=== PATIENT | female | born 1995 | race Caucasian/White ===

== ENCOUNTER 2024-09-28 10:53 | Emergency (ER) | payer OTHER, SELFPAY ==
--- OUTSIDE RECORDS SUMMARY | 2024-09-28 10:55 | XMS REPORT | Continuity of Care Document ---
Author Name Unknown Address [address] [facility] [address] [place] [address] [facility] thconnect Address [address] [facility] [address] [place] [address] Care Team Providers Care Landscape Horticulture Instructor Name Role Phone Physician, No Primary or Family Admitting Clinic margret Unavailable Payers Payer Name Policy Type Policy Number Effective Date Expirati on Date Source Allergies, Adverse Reactions, Alerts Allergy Name Allergy Type Status Severity Reaction(s) Onset Date Inactive Date Treating Clinician Comments Source folic acid DA Active [place] 2018-09 00:00: 00 [facility] adhesive tape DA Active [place] 2018-09 0 00:00: 00 [facility] folic acid DA Active [place] RASH 2018-09 0 00:00: 00 [facility] adhesive tape DA Active [place] RASH 2018-09 0 00:00: 00 [facility] folic acid DA Active [place] 04-28 00:00: 00 [facility] adhesive tape DA Active [place] 04-28 00:00: 00 [facility] No Known Allergie s DA Active U 03-02 00:00: 00 [facility] Encounters Start Date/Time End Date/Time Encounter Type Admission Type Attending Clinicians Care Facility Care Department Encounter ID Source 2020-07-26 23:00:00 Inpatient [facility] TERS [id number] [facility] Results Test Description Test Time Test Comments Results Result Co mments Source - CT ABD PELVIS [id number] 17:35:00FAX: Jose Elder MD [phone] [place]: St: REG Name: CHUNG EDUARDO [facility] : 1995 Age/S: [address] Unit: [id number] Loc: [place], [place]: [place] [address] Acct: [id number] Dis Date: Status: REG ER PHONE #: [phone] Exam Date: 06/20/2019 1717 FAX #: [phone] Reason: LEft flank pain EXAMS: CPT CODE: [id number] CT ABD PELVIS W/CONT 21206 HISTORY: LEft flank pain EXAM TYPE: CT abdomen and pelvis with IV contrast. Location code:C3 TECHNIQUE: Contrast - IV contrast was given, no oral contrast was given Portal venous phase - abdomen and pelvis No delayed phase images were obtained. Reconstructions - coronal and sagittal planes One or more of the following dose reduction techniques were used: Automated exposure control, adjustment of themA and/or kV according to patient size, and/or utilization of iterative reconstruction technique. COMPARISON: CT abdomen and pelvis 04/28/2019 FINDINGS: Statements: None. Thoracic: Included images ofthe lower chest demonstrate no abnormalities. Hepatobiliary: The liver is normal without focal lesion. Previously identified hypodensity seen in the posterior left lobe near the falciform ligament isno longer visualized, possibly due to transient fatty infiltration. The gallbladder is normal. No biliary dilation. Pancreas: Normal. Spleen: Normal. Adrenals: Normal. Genitourinary: There is symmetric enhancement of both kidneys. A 5 cm hypodensity is present in the right interpolar region and a 4mm hypodensity is present in the left interpolar region (image 30, series 2), both too small to characterize but statistically cysts. No hydronephrosis or renal calculi identified. No perinephric fat stranding. Evaluation of the bladder is limited, but no obvious bladder abnormality is present. Theuterus is unremarkable. Simple cystic PAGE 1 Signed Report (CONTINUED) FAX: Jose Elder MD [phone] [place]: St: REG ----- Name: CHUNG EDUARDO [facility] : 1995 Age/S: 23/F [address] [id number] Loc: [place], [place]: [place] [address] Acct: [id number] Dis Date: Status: REG ER PHONE #: [phone] Exam Date: 06/20/2019 1717 FAX #: [phone] Reason: LEft flank pain EXAMS: CPT CODE: [id number] CT ABD PELVIS W/CONT 13131 (Continued) structure seen in the right adnexa measuring 4.2 cm AP by 3.3 cm TR by 3.4 cm CC (image 72, series 2; image 42, series 601), with subtle appearance of rim enhancement; possibly a corpus luteum cyst or hemorrhagic cyst associated with the right ovary. Normal left ovary (image 71, series 2). No left adnexal mass. No significant pelvic free fluid. Gastrointestinal: No bowel obstruction or perienteric inflammation. The appendix is normal. Vascular: No evidence of aneurysm or dissection. Lymphatics: No enlarged lymph nodes by CT size criteria. Bones/Soft Tissues: The osseous structures are unremarkable. No acute osseous abnormality. No ventral hernias. Peritoneum/Other: No extraluminal air. No extraluminal fluid. IMPRESSION: 1. 4.2 cm right adnexal cystic structure with subtle rim enhancement, likely a benign-type corpus luteum cyst associated with the right ovary. No significant pelvic fluid collection or solid mass seen. Normal uterus and left ovary. 2. Normal appendix. 3. Normal kidneys bilaterally withoutevidence of hydronephrosis or renal calculi. No perinephric fat stranding. Electronically Signedby LOLA NEGRETE M.D. on 06/20/2019 at 1732 Reported and signed by: LOLA NEGRETE M.D. CC: Jose Elder MD Technologist: MAXIMILIAN LAWRENCE Trnscrd Dt/Tm: 06/20/2019 (8567) [email or web address] Orig Print D/T: S: 06/20/2019 (5278 PAGE 2 Signed ReportBASIC METABOLIC [id number] 16:09:00* Test Item Value Reference Range Interpretation Comme nts SODIUM (test code = NA) 138 mmol/l 134.0-147.0 N POTASSIUM (test code = K) 3.8 mmol/L 3.6-5.2 N CHLORIDE (test code = CL) 102 mmol/l 98.0-107.0 N CARBON DIOXIDE (test code = CO2) 26.9 mmol/l 21.0-33.0 N ANION GAP (test code = GAP) 12.9 0-20 N GLUCOSE (test code = GLU) 91 mg/dl 70.0-110.0 N BLOOD UREA NITROGEN (test co de = BUN) 8 mg/dl 7.0-18.0 N CREATININE (test code = CREAT) 0.72 mg/dL 0.60-1.30 N GFR NON BLACK (test code = GFRNONBLACK) 108 mL/min 110-120 L GFR BLACK (test code = GFRBLACK) 131 mL/min 133-145 L CALCIUM (test code = CA) 9.0 mg/dl 8.0-10.5 N HEPATIC FUNCTION PANEL [id number] 16:09:00* Test Item Value Reference Range Interpretation Comme nts TOTAL PROTEIN (test code = PROT) 7.9 GM/DL 6.0-8.1 N ALBUMIN (test code = ALB) 3.8 gm/dL 3.2-4.7 N BILIRUBIN TOTAL (test code = BILT) 0.5 mg/dl 0.0-1.0 N BILIRUBIN DIRECT (test code = BILD) 0.1 mg/dl 0.0-0.3 N SGOT/AST (test code = AST) 14 Units/L 15.0-37.0 L SGPT/ALT (test code = ALT) 17 Units/L 12.0-78.0 N ALKALINE PHOSPHATASE TOTAL ( test code = ALKP) 63 Units/L 50.0-136.0 N [id number] 16:09:00* Test Item Value Reference Range Interpretation Comme nts LIPASE (test code = LIP) 82 Units/L 65.0-230.0 N BASIC METABOLIC [id number] 16:02:00* Test Item Value Reference Range Interpretation Comme nts SODIUM (test code = NA) 138 mmol/l 134.0-147.0 N POTASSIUM (test code = K) 3.8 mmol/L 3.6-5.2 N CHLORIDE (test code = CL) 102 mmol/l 98.0-107.0 N CARBON DIOXIDE (test code = CO2) 26.9 mmol/l 21.0-33.0 N ANION GAP (test code = GAP) 12.9 0-20 N GLUCOSE (test code = GLU) mg/dl 70.0-110.0 BLOOD UREA NITROGEN (test co de = BUN) mg/dl 7.0-18.0 CREATININE (test code = CREAT) mg/dL 0.60-1.30 GFR NON BLACK (test code = GFRNONBLACK) mL/min 110-120 GFR BLACK (test code = GFRBLACK) mL/min 133-145 CALCIUM (test code = CA) mg/dl 8.0-10.5 HEPATIC FUNCTION PANEL [id number] 16:02:00* Test Item Value Reference Range Interpretation Comme nts TOTAL PROTEIN (test code = PROT) gm/dL 6.4-8.2 ALBUMIN (test code = ALB) gm/dl 3.2-4.7 BILIRUBIN TOTAL (test code = BILT) mg/dl 0.0-1.0 BILIRUBIN DIRECT (test code = BILD) mg/dl 0.0-0.3 SGOT/AST (test code = AST) Units/L 15.0-37.0 SGPT/ALT (test code = ALT) Units/L 12.0-78.0 ALKALINE PHOSPHATASE TOTAL ( test code = ALKP) Units/L 50.0-136.0 [id number] 16:02:00* Test Item Value Reference Range Interpretation Comme nts LIPASE (test code = LIP) Units/L 65.0-230.0 URINALYSIS [id number] 15:59:00* Test Item Value Reference Range Interpretation Comme nts UA COLOR (test code = COLU) LT YELLOW UA APPEARANCE (test code = APPU) HAZY UA GLUCOSE DIPSTICK (test code = DGLUU) NORMAL mg/dl NORMAL UA BILIRUBIN DIPSTICK (test code = BILU) NEGATIVE mg/dL NEGATIVE UA KETONE DIPSTICK (test code = KETU) NEGATIVE mg/dl NEGATIVE UA SPECIFIC GRAVITY (test code = SGU) 1.010 1.000-1.030 UA BLOOD DIPSTICK (test code = DAVID) 50 Domenico/micL Domenico/micL NEGATIVE A UA PH DIPSTICK (test code = JUANI) 6.5 5.0-9.0 UA PROTEIN DIPSTICK (test code = PROU) 30 mg/dl NEGATIVE A UA UROBILINIOGEN DIPSTICK (test code = URO) NORMAL mg/dl NORMAL UA NITRITE DIPSTICK (test code = CHRISTINA) NEGATIVE NEGATIVE UA LEUKOCYTE ESTERASE DIPSTICK (test code = LEUU) 100 Jason/micL Jason/micL NEGATIVE A UA WBC (test code = WBCU) 10-20 WBC/HPF NONE A UA RBC (test code = RBCU) 5-10 RBC/HPF 0-3 A UA EPITHELIAL CELLS (test code = EPIU) 2-5 EPI/HPF 0-3 A UA BACTERIA (test code = BACU) FEW NONE UA RENAL CELLS (test code = KRYSTYNA) FEW UA MUCUS (test code = MUCU) 2+ UR HCG [id number] 15:59:00* Test Item Value Reference Range Interpretation Comme nts UR HCG QUAL (test code = HCGQLU) NEGATIVE NEGATIVE CBC W/AUTO [id number] 15:56:00* Test Item Value Reference Range Interpretation Comme nts WHITE BLOOD CELL (test code = WBC) 11.3 K/mm3 4.5-11.0 H RED BLOOD CELL (test code = RBC) 4.33 M/mm3 3.80-5.20 N HEMOGLOBIN (test code = HGB) 12.8 gm/dL 12.0-16.0 N HEMATOCRIT (test code = HCT) 39.5 % 36.0-48.0 N MEAN CELL VOLUME (test code = MCV) 91.2 UM3 82.0-99.0 N MEAN CELL HGB (test code = MCH) 29.6 UUG 25.5-32.5 N MEAN CELL HGB CONCETRATION (test code = MCHC) 32.4 gm/dL 29.0-35.5 N RED CELL DISTRIBUTION WIDTH (test code = RDW) 13.1 % 11.5-15.0 N RED CELL DISTRIBUTION WIDTH SD (test code = RDW-SD) 43.8 fL 34.8-50.2 N PLATELET COUNT (test code = PLT) 306 K/mm3 150-400 N MEAN PLATELET VOLUME (test c ode = MPV) 9.9 fl 7.4-10.4 N NEUTROPHIL % (test code = NT%) 68.5 % 49.0-76.0 N IMMATURE GRANULOCYTE % (test code = IG%) 0.3 % 0.0-0.4 N LYMPHOCYTE % (test code = LY%) 20.3 % 23.0-38.0 L MONOCYTE % (test code = MO%) 8.8 % 1.0-10.0 N EOSINOPHIL % (test code = EO%) 1.5 % 1.0-5.0 N BASOPHIL % (test code = BA%) 0.6 % 0.0-1.0 N NEUTROPHIL # (test code = NT#) 7.8 K/mm3 2.4-6.3 H IMMATURE GRANULOCYTE # (test code = IG#) 0.03 x10 3/uL 0.00-0.07 N LYMPHOCYTE # (test code = LY#) 2.3 K/mm3 1.2-4.0 N MONOCYTE # (test code = MO#) 1.0 K/mm3 0.0-0.6 H EOSINOPHIL # (test code = EO#) 0.2 K/MM3 0.0-0.7 N BASOPHIL # (test code = BA#) 0.1 K/mm3 0.0-0.2 N URINALYSIS [id number] 15:53:00* Test Item Value Reference Range Interpretation Comme nts UA COLOR (test code = COLU) UA APPEARANCE (test code = APPU) UA GLUCOSE DIPSTICK (test code = DGLUU) NORMAL mg/dl NORMAL UA BILIRUBIN DIPSTICK (test code = BILU) NEGATIVE mg/dL NEGATIVE UA KETONE DIPSTICK (test code = KETU) NEGATIVE mg/dl NEGATIVE UA SPECIFIC GRAVITY (test code = SGU) 1.010 1.000-1.030 UA BLOOD DIPSTICK (test code = DAVID) 50 Domenico/micL Domenico/micL NEGATIVE A UA PH DIPSTICK (test code = JUANI) 6.5 5.0-9.0 UA PROTEIN DIPSTICK (test code = PROU) 30 mg/dl NEGATIVE A UA UROBILINIOGEN DIPSTICK (test code = URO) NORMAL mg/dl NORMAL UA NITRITE DIPSTICK (test code = CHRISTINA) NEGATIVE NEGATIVE UA LEUKOCYTE ESTERASE DIPSTICK (test code = LEUU) 100 Jason/micL Jason/micL NEGATIVE A UA WBC (test code = WBCU) WBC/HPF NONE UA RBC (test code = RBCU) RBC/HPF 0-3 UA EPITHELIAL CELLS (test code = EPIU) EPI/HPF 0-3 UA BACTERIA (test code = BACU) NONE UR HCG [id number] 15:53:00* Test Item Value Reference Range Interpretation Comme nts UR HCG QUAL (test code = HCGQLU) NEGATIVE - US ABDOMEN [id number] 09:23:00FAX: Taj Gonzalez MD [place]: St: DEP Name: CHUNG EDUARDO [facility] : 1995 Age/S: 23/F [address] [facility] Unit #: [id number] Loc: [place], [place]: [place] [address] Acct: [id number] Dis Date: Status: DEP ER PHONE #: [phone] Exam Date: 04/28/2019 1120 FAX #: [phone] Reason: RUQ pain Report Has Been Amended EXAMS: CPT CODE: [id number] US ABDOMEN LTD 37967 Addendum - 04/29/2019 SIGNED 04/29/2019 ADDENDUM: [id number] US/USABDLTD Addendum: The 2nd sentence describing the pancreas should be: Thickness of the pancreas is normal. at 0923 Reported and signed by: Get Gottlieb M.D. Report ULTRASOUND: - US ABDOMEN LTD History: Right upper quadrant pain, abdominal pain Comparison: None. B-mode/Govea scale imaging with color Doppler perfusion imaging and spectral analysis was performed. The aorta has normal diameter maximum measurement 1.3 cm. Pancreas intact where seen. As the pancreas is normal. Detail partially obscured. IVC intact seen at the edge of the liver. Liver ech ogenicity pattern homogeneous with liver size 12.9 cm. The posterior margin of the left lobe of theliver shows a vague oval almost isogenic area at 4.5 x 1.6 x 3.6 cm likely representing the CT findings but this is not shown to be hyperperfused, a very subtle abnormality. There does not appear titus architectural distortion. No other focal mass lesions are seen. Antegrade portal vein flow seen on color Doppler. The gallbladder is normally distended. No stones or wall thickening evident. Common bile duct normal 2.8 mm. The right kidney appears to be intact measuring 10.2 cm in length. No shadowing stones or obstruction or cortical abnormality. No ascites found. PAGE 1 Signed Report (CONTINUED) FAX: Taj Gonzalez MD [place]: St: [facility] Name: CHUNG EDUARDO [facility] : 1995 Age/S: 23/F [address] Unit #: [id number] Loc: [place], [place]: [place] [address] Acct: [id number] Dis Date: Status: DEP ER PHONE #: [phone] Exam Date: 04/28/2019 1120 FAX #: [phone] Reason: RUQ pain Report Has Been Amended EXAMS: CPT CODE: [id number] US ABDOMEN LTD 03511 (Continued) Impression: Normal gallbladder appearance. No gallstones evident. Iso echogenic, very subtle non mass-like area in the posterior left lobe of the liver, suggesting benign findings. Location: U 19 at 1142 Reported and signed by: Get Gottlieb M.D. CC: Taj Gonzalez MD Technologist: KATIE MOYA [facility] Date/Time/By: 04/28/2019 (114) : By: [facility] PAGE 2 Signed Report FAX: Taj Gonzalez MD [place]: St: DEP -- Name: CHUNG EDUARDO [facility] : 1995 Age/S: 23/F [address] [facility] Unit #: [id number] Loc: [place], [place] Phys: [place] [address] Acct: [id number] Dis Date: Status: [facility] ER PHONE #: [phone] Exam Date: 04/28/2019 1120 FAX #: [phone] Reason: RUQ pain Report Has Been Amended EXAMS: CPT CODE: [id number] US ABDOMEN LTD [id number] (Continued) Orig PrintD/T: S: 04/28/2019 (8017) PAGE 3 Signed Report- US ABDOMEN [id number] 11:42:00FAX: Taj Gonzalez MD [place]: St: REG Name: CHUNG EDUARDO [facility] : 1995 Age/S: 23/F [address] Unit #: [id number] Loc: [place]: [place] [address] Acct: [id number] Dis Date: Status: REG ER PHONE #: [phone] Exam Date: 04/28/2019 1120 FAX #: [phone] Reason: RUQ pain EXAMS: CPT CODE: [id number] US ABDOMEN LTD [address]2611 ULTRASOUND: - US ABDOMEN LTD H istory: Right upper quadrant pain, abdominal pain Comparison: None. B-mode/Govea scale imaging with color Doppler perfusion imaging and spectral analysis was performed. The aorta has normal diameter maximum measurement 1.3 cm. Pancreas intact where seen. As the pancreas is normal. Detail partially obscured. IVC intact seen at the edge of the liver. Liver echogenicity pattern homogeneous with liver size 12.9 cm. The posterior margin of the left lobe of the liver shows a vague oval almost isogenic area at 4.5 x 1.6 x 3.6 cm likely representing the CT findings but this is not shown to be hyperperfused, a very subtle abnormality. There does not appear to be architectural distortion. No other focal mass lesions are seen. Antegrade portal vein flow seen on color Doppler. The gallbladder is normally distended. No stones or wall thickening evident. Common bile duct normal 2.8 mm. The right kidney appears to be intact measuring 10.2 cm in length. No shadowing stones or obstruction or cortical a bnormality. No ascites found. Impression: Normal gallbladder appearance. No gallstones evident. Isoechogenic, very subtle non mass-like area in the posterior left lobe of the liver, suggesting benign findings. Location: U 19 at 1142 Reported and signed by: Get Gottlieb M.D. CC: Taj Gonzalez MD Technologist: KATIE MOYA [facility] Date/Time/By: 04/28/2019 (2734) : By: Carlee PAGE 1 Signed Report FAX: Taj Gonzalez MD [place]: St: REG ------- Name: CHUNG EDUARDO [facility] : 1995 Age/S: [address] Unit #: [id number] Loc: [place], [place]: [place] [address] Acct: [id number] Dis Date: Status: REG ER PHONE #: [phone] Exam Date: 04/28/2019 1120 FAX #: [phone] Reason: RUQ pain EXAMS: CPT CODE: [id number] US ABDOMEN LTD 02656 (Continued) Orig Print D/T: S: 04/28/2019 (1144) PAGE 2 Signed Report- CT ABD PELVIS [id number] 10:06:00 FAX: Taj Gonzalez MD [place]: St: REG Name: CHUNG EDUARDO [facility] : 1995 Age/S: [address] Unit: [id number] Loc: [place], [place] Phys: [place] [address] Acct: [id number] Dis Date: Status: REG ER PHONE #: [phone] Exam Date: 04/28/2019 0958 FAX #: [phone] Reason: RUQ pain, RLQ PAIN EXAMS: CPT CODE: [id number] CT ABD PELVIS W/CONT 41714 HISTORY: Right lo wer quadrant pain, right upper quadrant pain. CT abdomen and pelvis, contrast enhanced. Reformattedsagittal and coronal images. COMPARISON: July 23, 2011 Automated exposure control, iterative reconstruction technique, and/or adjustment of mA and/or kV according to patient's size was utilized for optimum radiation dose reduction. Following the intravenous administration of 100 ml of Isovue 300 but no oral contrast, a study of the abdomen and pelvis was performed. The study includes some of the lung bases, which appear to be clear. No pericardial or pleural fluid can be found. The liver perfuses normally with no focal lesions. Margins are smooth. There is a vague subtly hypodense perfusio n abnormality in the left lobe of the liver and in the falciform ligament posteriorly in front of the maricruz hepatis. This is not appear to be masslike but may need correlation with liver enzyme abnormality possibly abdominal sonography. Gallbladder intact. The spleen normally perfused with normal size. Pancreas small hypodensity in the midportion of the right kidney laterally likely a tiny cyst but too small to accurately characterize. Intact. Adrenals and kidneys are normal. Normal aortic diameter and perfusion. No adenopathy seen. Bowel loop pattern intact. Stool content appropriate. Normalappendix is found. The study of the pelvis shows thickened bladder, nearly empty. Correlate for cystitis changes. Adnexal areas with soft tissue density likely a dominant cyst, left ovary up to 2.2 cm. Multiple tiny follicular cysts right ovary with normal size. There does not appear to be evidenceof free fluid. No inguinal hernia. No free air. Bony structures intact. No bony destructive or sclerotic process.. IMPRESSION: Normal appendix and bowel loop pattern. Vague hypodensity in the posterior left lobe near the falciform PAGE 1 Signed Report (CONTINUED) FAX: Taj Gonzalez MD [place]: St: REG -- Name: CHUNG EDUARDO [facility] : 1995 Age/S: 23/F [address] Unit: [id number] Loc: [place], [place]: [place] [address] Acct: [id number] Dis Date: Status: REG ER PHONE #: [phone] Exam Date: 04/28/2019 0958 FAX #: [phone] Reason: RUQ pain, RLQ PAIN EXAMS: CPT CODE: [id number] CT ABD PELVIS W/CONT 14496 (Continued) ligament may need further assessment with sonography or MRI. Correlate with liver enzyme abnormalities. No obvious gallbladder abnormalityacutely. Normal common bile duct Location: U19 at 1006 Reported and signed by: Get Gottlieb M.D. CC: Taj Gonzalez MD Technologist: CHUNG JOSE; FLAKITA GALAVIZ Trnscrd Dt/Tm: 04/28/2019 (1006) tGORDON Orig Print D/T: S: 04/28/2019 (1009 PAGE 2 Signed ReportURINALYSIS [id number] 09:40:00* Test Item Value Reference Range Interpretation Comme nts UA COLOR (test code = COLU) YELLOW UA APPEARANCE (test code = APPU) CLEAR UA GLUCOSE DIPSTICK (test code = DGLUU) NORMAL mg/dl NORMAL UA BILIRUBIN DIPSTICK (test code = BILU) NEGATIVE mg/dL NEGATIVE UA KETONE DIPSTICK (test code = KETU) 5 mg/dl mg/dl NEGATIVE A UA SPECIFIC GRAVITY (test code = SGU) 1.015 1.000-1.030 UA BLOOD DIPSTICK (test code = DAVID) 150 Domenico/micL Domenico/micL NEGATIVE A UA PH DIPSTICK (test code = JUANI) 6.5 5.0-9.0 UA PROTEIN DIPSTICK (test code = PROU) 15 mg/dl mg/dl NEGATIVE A UA UROBILINIOGEN DIPSTICK (test code = URO) NORMAL mg/dl NORMAL UA NITRITE DIPSTICK (test code = CHRISTINA) NEGATIVE NEGATIVE UA LEUKOCYTE ESTERASE DIPSTICK (test code = LEUU) NEGATIVE Jason/micL NEGATIVE UA WBC (test code = WBCU) 4-9 WBC/HPF NONE A UA RBC (test code = RBCU) 1-3 RBC/HPF 0-3 UA EPITHELIAL CELLS (test code = EPIU) 2-5 EPI/HPF 0-3 A UA BACTERIA (test code = BACU) FEW NONE UA AMORPHOUS SEDIMENT (test code = AMORU) MOD NONE Specimen comments: Clean CatchDRUGS OF ABUSE SCREEN [id number] 09:37:00* Test Item Value Reference Range Interpretation Comme nts URN COCAINE (test code = COCAURN) NEGATIVE NEGATIVE Cocaine cut-off concentration: 300 ng/mL URN CANNABINOIDS (test code = CANNABURN) NEGATIVE NEGATIVE Cannabinoids c ut-off concentration: 50 ng/mL URN AMPHETAMINE (test code = AMPHETURN) NEGATIVE NEGATIVE Amphetamine cu t-off concentration: 1000 ng/mL URN BARBITURATE (test code = BARBITURN) NEGATIVE NEGATIVE Barbiturate cu t-off concentration: 200 ng/mL URN BENZODIAZEPINE (test code = BENZOURN) NEGATIVE NEGATIVE Benzodiaz epine cut-off concentration: 200 ng/mL URN OPIATES (test code = OPIATURN) NEGATIVE NEGATIVE Opiates cut-off concentration: 200 ng/mL URN PHENCYCLIDINE (PCP) (test code = PHENCURN) NEGATIVE NEGATIVE Phencycli dine(PCP) cut-off concentration: 25 ng/ml URN METHADONE (test code = METHAURN) NEGATIVE NEGATIVE Methadone cut-o ff concentration: 300 ng/mL URINALYSIS [id number] 09:37:00* Test Item Value Reference Range Interpretation Comme nts UA COLOR (test code = COLU) UA APPEARANCE (test code = APPU) UA GLUCOSE DIPSTICK (test code = DGLUU) NORMAL mg/dl NORMAL UA BILIRUBIN DIPSTICK (test code = BILU) NEGATIVE mg/dL NEGATIVE UA KETONE DIPSTICK (test code = KETU) 5 mg/dl mg/dl NEGATIVE A UA SPECIFIC GRAVITY (test code = SGU) 1.015 1.000-1.030 UA BLOOD DIPSTICK (test code = DAVID) 150 Domenico/micL Domenico/micL NEGATIVE A UA PH DIPSTICK (test code = JUANI) 6.5 5.0-9.0 UA PROTEIN DIPSTICK (test code = PROU) 15 mg/dl mg/dl NEGATIVE A UA UROBILINIOGEN DIPSTICK (test code = URO) NORMAL mg/dl NORMAL UA NITRITE DIPSTICK (test code = CHRISTINA) NEGATIVE NEGATIVE UA LEUKOCYTE ESTERASE DIPSTICK (test code = LEUU) NEGATIVE Jason/micL NEGATIVE UA WBC (test code = WBCU) WBC/HPF NONE UA RBC (test code = RBCU) RBC/HPF 0-3 UA EPITHELIAL CELLS (test code = EPIU) EPI/HPF 0-3 UA BACTERIA (test code = BACU) NONE Specimen comments: Clean CatchBASIC METABOLIC [id number] 09:24:00* Test Item Value Reference Range Interpretation Comme nts SODIUM (test code = NA) 139 mmol/l 134.0-147.0 N POTASSIUM (test code = K) 3.2 mmol/L 3.6-5.2 L CHLORIDE (test code = CL) 104 mmol/l 98.0-107.0 N CARBON DIOXIDE (test code = CO2) 25.3 mmol/l 21.0-33.0 N ANION GAP (test code = GAP) 12.9 0-20 N GLUCOSE (test code = GLU) 84 mg/dl 70.0-110.0 N BLOOD UREA NITROGEN (test co de = BUN) 10 mg/dl 7.0-18.0 N CREATININE (test code = CREAT) 0.61 mg/dL 0.60-1.30 N GFR NON BLACK (test code = GFRNONBLACK) 131 mL/min 110-120 H GFR BLACK (test code = GFRBLACK) 159 mL/min 133-145 H CALCIUM (test code = CA) 8.6 mg/dl 8.0-10.5 N Specimen comments: Clean CatchHEPATIC FUNCTION PANEL [id number] 09:24:00* Test Item Value Reference Range Interpretation Comme nts TOTAL PROTEIN (test code = PROT) 7.3 gm/dL 6.4-8.2 N ALBUMIN (test code = ALB) 3.6 gm/dl 3.2-4.7 N BILIRUBIN TOTAL (test code = BILT) 1.3 mg/dl 0.0-1.0 H BILIRUBIN DIRECT (test code = BILD) 0.2 mg/dl 0.0-0.3 N SGOT/AST (test code = AST) 13 Units/L 15.0-37.0 L SGPT/ALT (test code = ALT) 18 Units/L 12.0-78.0 N ALKALINE PHOSPHATASE TOTAL ( test code = ALKP) 60 Units/L 50.0-136.0 N Specimen comments: Clean [id number] 09:24:00* Test Item Value Reference Range Interpretation Comme nts LIPASE (test code = LIP) 67 Units/L 65.0-230.0 N Specimen comments: Clean CatchHCG SERUM [id number] 09:24:00* Test Item Value Reference Range Interpretation Comme nts HCG SERUM QUAL (test code = HCGQL) NEGATIVE NEGATIVE Specimen comments: Clean CatchBASIC METABOLIC [id number] 09:21:00* Test Item Value Reference Range Interpretation Comme nts SODIUM (test code = NA) 139 mmol/l 134.0-147.0 N POTASSIUM (test code = K) 3.2 mmol/L 3.6-5.2 L CHLORIDE (test code = CL) 104 mmol/l 98.0-107.0 N CARBON DIOXIDE (test code = CO2) 25.3 mmol/l 21.0-33.0 N ANION GAP (test code = GAP) 12.9 0-20 N GLUCOSE (test code = GLU) mg/dl 70.0-110.0 BLOOD UREA NITROGEN (test co de = BUN) mg/dl 7.0-18.0 CREATININE (test code = CREAT) mg/dL 0.60-1.30 GFR NON BLACK (test code = GFRNONBLACK) mL/min 110-120 GFR BLACK (test code = GFRBLACK) mL/min 133-145 CALCIUM (test code = CA) mg/dl 8.0-10.5 Specimen comments: Clean CatchHEPATIC FUNCTION PANEL [id number] 09:21:00* Test Item Value Reference Range Interpretation Comme nts TOTAL PROTEIN (test code = PROT) gm/dL 6.4-8.2 ALBUMIN (test code = ALB) gm/dl 3.2-4.7 BILIRUBIN TOTAL (test code = BILT) mg/dl 0.0-1.0 BILIRUBIN DIRECT (test code = BILD) mg/dl 0.0-0.3 SGOT/AST (test code = AST) Units/L 15.0-37.0 SGPT/ALT (test code = ALT) Units/L 12.0-78.0 ALKALINE PHOSPHATASE TOTAL ( test code = ALKP) Units/L 50.0-136.0 Specimen comments: Clean [id number] 09:21:00* Test Item Value Reference Range Interpretation Comme nts LIPASE (test code = LIP) Units/L 65.0-230.0 Specimen comments: Clean CatchHCG SERUM [id number] 09:21:00* Test Item Value Reference Range Interpretation Comme nts HCG SERUM QUAL (test code = HCGQL) NEGATIVE NEGATIVE Specimen comments: Clean CatchCBC W/AUTO [id number] 09:18:00* Test Item Value Reference Range Interpretation Comme nts WHITE BLOOD CELL (test code = WBC) 11.8 K/mm3 4.5-11.0 H RED BLOOD CELL (test code = RBC) 4.16 M/mm3 3.80-5.20 N HEMOGLOBIN (test code = HGB) 12.5 gm/dL 12.0-16.0 N HEMATOCRIT (test code = HCT) 37.6 % 36.0-48.0 N MEAN CELL VOLUME (test code = MCV) 90.4 UM3 82.0-99.0 N MEAN CELL HGB (test code = MCH) 30.0 UUG 25.5-32.5 N MEAN CELL HGB CONCETRATION (test code = MCHC) 33.2 gm/dL 29.0-35.5 N RED CELL DISTRIBUTION WIDTH (test code = RDW) 12.7 % 11.5-15.0 N RED CELL DISTRIBUTION WIDTH SD (test code = RDW-SD) 42.0 fL 34.8-50.2 N PLATELET COUNT (test code = PLT) 248 K/mm3 150-400 N MEAN PLATELET VOLUME (test c ode = MPV) 10.4 fl 7.4-10.4 N NEUTROPHIL % (test code = NT%) 73.8 % 49.0-76.0 N IMMATURE GRANULOCYTE % (test code = IG%) 0.3 % 0.0-0.4 N LYMPHOCYTE % (test code = LY%) 17.8 % 23.0-38.0 L MONOCYTE % (test code = MO%) 7.1 % 1.0-10.0 N EOSINOPHIL % (test code = EO%) 0.6 % 1.0-5.0 L BASOPHIL % (test code = BA%) 0.4 % 0.0-1.0 N NEUTROPHIL # (test code = NT#) 8.7 K/mm3 2.4-6.3 H IMMATURE GRANULOCYTE # (test code = IG#) 0.03 x10 3/uL 0.00-0.07 N LYMPHOCYTE # (test code = LY#) 2.1 K/mm3 1.2-4.0 N MONOCYTE # (test code = MO#) 0.8 K/mm3 0.0-0.6 H EOSINOPHIL # (test code = EO#) 0.1 K/MM3 0.0-0.7 N BASOPHIL # (test code = BA#) 0.1 K/mm3 0.0-0.2 N BASIC METABOLIC [id number] 09:15:00* Test Item Value Reference Range Interpretation Comme nts SODIUM (test code = NA) mmol/l 134.0-147.0 POTASSIUM (test code = K) mmol/L 3.6-5.2 CHLORIDE (test code = CL) mmol/l 98.0-107.0 CARBON DIOXIDE (test code = CO2) mmol/l 21.0-33.0 ANION GAP (test code = GAP) 0-20 GLUCOSE (test code = GLU) mg/dl 70.0-110.0 BLOOD UREA NITROGEN (test code = BUN) mg/dl 7.0-18.0 CREATININE (test code = CREAT) mg/dL 0.60-1.30 GFR NON BLACK (test code = GFRNONBLACK) mL/min 110-120 GFR BLACK (test code = GFRBLACK) mL/min 133-145 CALCIUM (test code = CA) mg/dl 8.0-10.5 Specimen comments: Clean CatchHEPATIC FUNCTION PANEL [id number] 09:15:00* Test Item Value Reference Range Interpretation Comme nts TOTAL PROTEIN (test code = PROT) gm/dL 6.4-8.2 ALBUMIN (test code = ALB) gm/dl 3.2-4.7 BILIRUBIN TOTAL (test code = BILT) mg/dl 0.0-1.0 BILIRUBIN DIRECT (test code = BILD) mg/dl 0.0-0.3 SGOT/AST (test code = AST) Units/L 15.0-37.0 SGPT/ALT (test code = ALT) Units/L 12.0-78.0 ALKALINE PHOSPHATASE TOTAL ( test code = ALKP) Units/L 50.0-136.0 Specimen comments: Clean [id number] 09:15:00* Test Item Value Reference Range Interpretation Comme nts LIPASE (test code = LIP) Units/L 65.0-230.0 Specimen comments: Clean CatchHCG SERUM [id number] 09:15:00* Test Item Value Reference Range Interpretation Comme nts HCG SERUM QUAL (test code = HCGQL) NEGATIVE NEGATIVE Specimen comments: Clean CatchCOMPREHENSIVE METABOLIC [id number] 16:14:00* Test Item Value Reference Range Interpretation Comme nts SODIUM (test code = NA) 136 mmol/l 134.0-147.0 N POTASSIUM (test code = K) 3.6 mmol/L 3.6-5.2 N CHLORIDE (test code = CL) 100 mmol/l 98.0-107.0 N CARBON DIOXIDE (test code = CO2) 28.8 mmol/l 21.0-33.0 N ANION GAP (test code = GAP) 10.8 0-20 N GLUCOSE (test code = GLU) 83 mg/dl 70.0-110.0 N BLOOD UREA NITROGEN (test co de = BUN) 8 mg/dl 7.0-18.0 N CREATININE (test code = CREAT) 0.72 mg/dL 0.60-1.30 N GFR NON BLACK (test code = GFRNONBLACK) 108 mL/min 110-120 L GFR BLACK (test code = GFRBLACK) 131 mL/min 133-145 L TOTAL PROTEIN (test code = PROT) 7.6 gm/dL 6.4-8.2 N ALBUMIN (test code = ALB) 3.9 gm/dl 3.2-4.7 N CALCIUM (test code = CA) 8.8 mg/dl 8.0-10.5 N BILIRUBIN TOTAL (test code = BILT) 0.6 mg/dl 0.0-1.0 N SGOT/AST (test code = AST) 12 Units/L 15.0-37.0 L SGPT/ALT (test code = ALT) 22 Units/L 12.0-78.0 N ALKALINE PHOSPHATASE TOTAL ( test code = ALKP) 54 Units/L 50.0-136.0 N HCG SERUM [id number] 16:14:00* Test Item Value Reference Range Interpretation Comme nts HCG SERUM QUAL (test code = HCGQL) NEGATIVE NEGATIVE [id number] 16:14:00* Test Item Value Reference Range Interpretation Comme nts ALCOHOL (test code = ALC) 0.00 gm/dL 0.00-0.00 N ETHYL ALCOHOL VA LUES - INTERPRETATION: 0.050 GM/DL - NOT INTOXICATED 0.100 GM/DL - INTOXICATED 0.350-0.450 GM/DL - SEVERELY INTOXICATED 0.550 GM/DL- FATAL INTOXICATION COMPREHENSIVE METABOLIC [id number] 16:08:00* Test Item Value Reference Range Interpretation Comme nts SODIUM (test code = NA) 136 mmol/l 134.0-147.0 N POTASSIUM (test code = K) 3.6 mmol/L 3.6-5.2 N CHLORIDE (test code = CL) 100 mmol/l 98.0-107.0 N CARBON DIOXIDE (test code = CO2) 28.8 mmol/l 21.0-33.0 N ANION GAP (test code = GAP) 10.8 0-20 N GLUCOSE (test code = GLU) 83 mg/dl 70.0-110.0 N BLOOD UREA NITROGEN (test co de = BUN) 8 mg/dl 7.0-18.0 N CREATININE (test code = CREAT) 0.72 mg/dL 0.60-1.30 N GFR NON BLACK (test code = GFRNONBLACK) 108 mL/min 110-120 L GFR BLACK (test code = GFRBLACK) 131 mL/min 133-145 L TOTAL PROTEIN (test code = PROT) 7.6 gm/dL 6.4-8.2 N ALBUMIN (test code = ALB) 3.9 gm/dl 3.2-4.7 N CALCIUM (test code = CA) 8.8 mg/dl 8.0-10.5 N BILIRUBIN TOTAL (test code = BILT) 0.6 mg/dl 0.0-1.0 N SGOT/AST (test code = AST) 12 Units/L 15.0-37.0 L SGPT/ALT (test code = ALT) 22 Units/L 12.0-78.0 N ALKALINE PHOSPHATASE TOTAL ( test code = ALKP) 54 Units/L 50.0-136.0 N HCG SERUM [id number] 16:08:00* Test Item Value Reference Range Interpretation Comme nts HCG SERUM QUAL (test code = HCGQL) NEGATIVE [id number] 16:08:00* Test Item Value Reference Range Interpretation Comme nts ALCOHOL (test code = ALC) 0.00 gm/dL 0.00-0.00 N ETHYL ALCOHOL VA LUES - INTERPRETATION: 0.050 GM/DL - NOT INTOXICATED 0.100 GM/DL - INTOXICATED 0.350-0.450 GM/DL - SEVERELY INTOXICATED 0.550 GM/DL- FATAL INTOXICATION DRUGS OF ABUSE SCREEN [id number] 16:04:00* Test Item Value Reference Range Interpretation Comme nts URN COCAINE (test code = COCAURN) NEGATIVE NEGATIVE Cocaine cut-off concentration: 300 ng/mL URN CANNABINOIDS (test code = CANNABURN) NEGATIVE NEGATIVE Cannabinoids c ut-off concentration: 50 ng/mL URN AMPHETAMINE (test code = AMPHETURN) NEGATIVE NEGATIVE Amphetamine cu t-off concentration: 1000 ng/mL URN BARBITURATE (test code = BARBITURN) NEGATIVE NEGATIVE Barbiturate cu t-off concentration: 200 ng/mL URN BENZODIAZEPINE (test code = BENZOURN) NEGATIVE NEGATIVE Benzodiaz epine cut-off concentration: 200 ng/mL URN OPIATES (test code = OPIATURN) NEGATIVE NEGATIVE Opiates cut-off concentration: 200 ng/mL URN PHENCYCLIDINE (PCP) (test code = PHENCURN) NEGATIVE NEGATIVE Phencycli dine(PCP) cut-off concentration: 25 ng/ml URN METHADONE (test code = METHAURN) NEGATIVE NEGATIVE Methadone cut-o ff concentration: 300 ng/mL COMPREHENSIVE METABOLIC [id number] 16:03:00* Test Item Value Reference Range Interpretation Comme nts SODIUM (test code = NA) 136 mmol/l 134.0-147.0 N POTASSIUM (test code = K) 3.6 mmol/L 3.6-5.2 N CHLORIDE (test code = CL) 100 mmol/l 98.0-107.0 N CARBON DIOXIDE (test code = CO2) 28.8 mmol/l 21.0-33.0 N ANION GAP (test code = GAP) 10.8 0-20 N GLUCOSE (test code = GLU) mg/dl 70.0-110.0 BLOOD UREA NITROGEN (test co de = BUN) mg/dl 7.0-18.0 CREATININE (test code = CREAT) mg/dL 0.60-1.30 GFR NON BLACK (test code = GFRNONBLACK) mL/min 110-120 GFR BLACK (test code = GFRBLACK) mL/min 133-145 TOTAL PROTEIN (test code = PROT) gm/dL 6.4-8.2 ALBUMIN (test code = ALB) gm/dl 3.2-4.7 CALCIUM (test code = CA) mg/dl 8.0-10.5 BILIRUBIN TOTAL (test code = BILT) mg/dl 0.0-1.0 SGOT/AST (test code = AST) Units/L 15.0-37.0 SGPT/ALT (test code = ALT) Units/L 12.0-78.0 ALKALINE PHOSPHATASE TOTAL ( test code = ALKP) Units/L 50.0-136.0 HCG SERUM [id number] 16:03:00* Test Item Value Reference Range Interpretation Comme nts HCG SERUM QUAL (test code = HCGQL) NEGATIVE [id number] 16:03:00* Test Item Value Reference Range Interpretation Comme nts ALCOHOL (test code = ALC) gm/dL 0.00-0.00 URINALYSIS [id number] 16:02:00* Test Item Value Reference Range Interpretation Comme nts UA COLOR (test code = COLU) LT YELLOW UA APPEARANCE (test code = APPU) CLEAR UA GLUCOSE DIPSTICK (test code = DGLUU) NORMAL mg/dl NORMAL UA BILIRUBIN DIPSTICK (test code = BILU) NEGATIVE mg/dL NEGATIVE UA KETONE DIPSTICK (test code = KETU) NEGATIVE mg/dl NEGATIVE UA SPECIFIC GRAVITY (test code = SGU) 1.010 1.000-1.030 UA BLOOD DIPSTICK (test code = DAVID) NEGATIVE Domenico/micL NEGATIVE UA PH DIPSTICK (test code = JUANI) 6.0 5.0-9.0 UA PROTEIN DIPSTICK (test code = PROU) NEGATIVE mg/dl NEGATIVE UA UROBILINIOGEN DIPSTICK (test code = URO) NORMAL mg/dl NORMAL UA NITRITE DIPSTICK (test code = CHRISTINA) NEGATIVE NEGATIVE UA LEUKOCYTE ESTERASE DIPSTICK (test code = LEUU) NEGATIVE Jason/micL NEGATIVE UA WBC (test code = WBCU) 0-2 WBC/HPF NONE UA RBC (test code = RBCU) 0-2 RBC/HPF 0-3 UA EPITHELIAL CELLS (test code = EPIU) 2-5 EPI/HPF 0-3 A UA BACTERIA (test code = BACU) FEW NONE URINALYSIS [id number] 15:55:00* Test Item Value Reference Range Interpretation Comme nts UA COLOR (test code = COLU) LT YELLOW UA APPEARANCE (test code = APPU) CLEAR UA GLUCOSE DIPSTICK (test code = DGLUU) NORMAL mg/dl NORMAL UA BILIRUBIN DIPSTICK (test code = BILU) NEGATIVE mg/dL NEGATIVE UA KETONE DIPSTICK (test code = KETU) NEGATIVE mg/dl NEGATIVE UA SPECIFIC GRAVITY (test code = SGU) 1.010 1.000-1.030 UA BLOOD DIPSTICK (test code = DAVID) NEGATIVE Domenico/micL NEGATIVE UA PH DIPSTICK (test code = JUANI) 6.0 5.0-9.0 UA PROTEIN DIPSTICK (test code = PROU) NEGATIVE mg/dl NEGATIVE UA UROBILINIOGEN DIPSTICK (test code = URO) NORMAL mg/dl NORMAL UA NITRITE DIPSTICK (test code = CHRISTINA) NEGATIVE NEGATIVE UA LEUKOCYTE ESTERASE DIPSTICK (test code = LEUU) NEGATIVE Jason/micL NEGATIVE UA WBC (test code = WBCU) WBC/HPF NONE UA RBC (test code = RBCU) RBC/HPF 0-3 UA EPITHELIAL CELLS (test code = EPIU) EPI/HPF 0-3 UA BACTERIA (test code = BACU) NONE CBC W/AUTO [id number] 15:49:00* Test Item Value Reference Range Interpretation Comme nts WHITE BLOOD CELL (test code = WBC) 8.6 K/mm3 4.5-11.0 N RED BLOOD CELL (test code = RBC) 4.41 M/mm3 3.80-5.20 N HEMOGLOBIN (test code = HGB) 12.8 gm/dL 12.0-16.0 N HEMATOCRIT (test code = HCT) 38.9 % 36.0-48.0 N MEAN CELL VOLUME (test code = MCV) 88.2 UM3 82.0-99.0 N MEAN CELL HGB (test code = MCH) 29.0 UUG 25.5-32.5 N MEAN CELL HGB CONCETRATION (test code = MCHC) 32.9 gm/dL 29.0-35.5 N RED CELL DISTRIBUTION WIDTH (test code = RDW) 13.2 % 11.5-15.0 N RED CELL DISTRIBUTION WIDTH SD (test code = RDW-SD) 42.8 fL 34.8-50.2 N PLATELET COUNT (test code = PLT) 347 K/mm3 150-400 N MEAN PLATELET VOLUME (test c ode = MPV) 9.7 fl 7.4-10.4 N NEUTROPHIL % (test code = NT%) 57.6 % 49.0-76.0 N IMMATURE GRANULOCYTE % (test code = IG%) 0.2 % 0.0-0.4 N LYMPHOCYTE % (test code = LY%) 34.6 % 23.0-38.0 N MONOCYTE % (test code = MO%) 5.6 % 1.0-10.0 N EOSINOPHIL % (test code = EO%) 1.2 % 1.0-5.0 N BASOPHIL % (test code = BA%) 0.8 % 0.0-1.0 N NEUTROPHIL # (test code = NT#) 5.0 K/mm3 2.4-6.3 N IMMATURE GRANULOCYTE # (test code = IG#) 0.02 x10 3/uL 0.00-0.07 N LYMPHOCYTE # (test code = LY#) 3.0 K/mm3 1.2-4.0 N MONOCYTE # (test code = MO#) 0.5 K/mm3 0.0-0.6 N EOSINOPHIL # (test code = EO#) 0.1 K/MM3 0.0-0.7 N BASOPHIL # (test code = BA#) 0.1 K/mm3 0.0-0.2 N
[2024-09-28] MEDS ORDERED: DIPHENHYDRAMINE 50 MG/ML VIAL ONE (11:05)
[2024-09-28] MEDS ORDERED: METOCLOPRAMIDE 10 MG/2mL INJ ONE (11:05)
[2024-09-28] MEDS ORDERED: NA CHLORIDE 0.9% 500 ML ONE (11:06)
[2024-09-28 11:32] LABS: Absolute Eosinophils 0.1 K/uL (0-0.5); Absolute Lymphocytes (CBC) 1.5 K/uL (0.7-4.9); Absolute Monocytes 0.3 K/uL (0.1-1.3); Absolute Neutrophil 6.5 K/uL (1.8-8.0); Basophils % 0.5 % (0-1.3); Eosinophils % 1.3 % (0-4.4); Hematocrit 39.5 % (36.0-45.0); Hemoglobin 13.6 g/dL (12.0-15.0); Lymphocytes % 18.2 % (15.3-44.8); MCH 30.4 pg (27.0-35.0); MCHC 34.5 g/dL (32.0-36.0); MPV 7.8 fL (7.6-11.3); Monocytes % 3.4 % (3.3-12.3); Neutrophils % 76.6 % (41.7-73.7); Platelets 375 thou/uL (152-406); RBC Red Blood Cell Count 4.49 M/uL (3.86-4.86); Red Cell Distribution Width 13.7 % (12.1-15.2)
[2024-09-28 11:34] LABS: Anion Gap 11.7 mEq/L (5.0-15.0); Potassium 3.7 mEq/L (3.5-5.1)
--- NOTE | 2024-09-28 12:00 | RAD REPORT ---
EXAM: CT Head Brain Wo Cont HISTORY: R sided numbness COMPARISON: None TECHNIQUE: Multiple contiguous axial images were obtained for a CT of the brain without contrast. Sag ittal and coronal reformats were performed. One or more of the following dose reduction techniques were used: Automated exposure control, adjus tment of the mA and kV according to patient size, and iterative reconstruction. Unless otherwise specified, incidental findings do not require dedicated imaging follow-up. FINDINGS: No evidence of hydrocephalus, intracranial hemorrhage, or extra-axial fluid collection. The brain is normal in morphology. The calvarium is intact. Patchy mucosal thickening throughout the paranasal sinuses. Mastoid air cell s are essentially clear. IMPRESSION: No evidence of acute intracranial abnormality.
--- NOTE | 2024-09-28 12:03 | RAD REPORT ---
EXAMINATION: CTA HEAD CLINICAL INDICATION: Female, 29 years old. R sided numbness TECHNIQUE: Axial CT images were obtained through the head after intravenous contrast utilizing angiog raphic protocol with 3D post-processing (maximum intensity projection images, volume rendered images and/or shaded surface rendered images). One or more of the following dose reduction technique s were used: Automated exposure control, adjustment of the mA and/or kV according to patient size, and/or iterative reconstruction. Unless otherwise specified, incidental findings do not require dedic ated imaging follow-up. COMPARISON: Noncontrast head CT of the same day. FINDINGS: ICA: The petrous, cavernous, and supraclinoid segments of the bilateral internal carotid arteries are normal. ALEX: Anterior cerebral arteries are normal bilaterally. The anterior communicating artery is patent. MCA: Middle cerebral arteries are normal bilaterally. ELEVATED WORK PLATFORM OPERATOR: Posterior cerebral arteries are normal bilaterally. Vertebrobasilar: The vertebral arteries are patent. The basilar artery is normal in appearance except for a small segment fenestration along its proximal third. 3D images confirm these findings. IMPRESSION: No evidence of large vessel occlusion or significant stenosis of the [place] vessels.
--- NOTE | 2024-09-28 12:06 | RAD REPORT ---
EXAMINATION: CT Neck Angio CLINICAL INDICATION: Female, 29 years old. [facility] MAIN R sided numbnes Bed Name: 6 TECHNIQUE: Axial CT images were obtained from the aortic arch to the skull base after intravenous con trast utilizing angiographic protocol. Multiplanar reformats, as well as 3D post-processing (maximum intensity projection images, volume rendered images and/or shaded surface rendered images) w ere generated and reviewed. One or more of the following dose reduction techniques were used: Automated exposure control, adjustment of the mA and/or kV according to patient size, and/or iterativ e reconstruction. Unless otherwise specified, incidental findings do not require dedicated imaging follow-up. COMPARISON: Noncontrast head CT of the same day. FINDINGS: AORTA: The imaged aortic arch is normal. Normal three-vessel configuration of the arch. CCA: No artifact The common carotid arteries are patent and normal in caliber. ICA/ECA: Bilateral internal and external carotid arteries are patent. There is no significant interna l carotid artery stenosis. VERTEBRAL: The cervical vertebral arteries are patent to the skull base. Vertebral arteries are codom inant. SOFT TISSUE: No significant neck soft tissue abnormalities. Mild central interstitial prominence and groundglass opacities in the visualized upper lungs. 3D images confirm these findings. IMPRESSION: No significant flow abnormality of the neck vessels is identified. Mild central interstitial prominence and groundglass opacities in the visualized upper lungs. These c ould relate to suboptimal inspiratory effort or mild central congestion. NASCET criteria used to quantify ICA stenosis, with the following grading scheme: Mild 0-49% stenosis Moderate 50-69% stenosis Severe 70-99% stenosis Reference: [place] Symptomatic Carotid Endarterectomy Trial Collaborators; Sherine TALBOT, Vale SPENCE, Ani RB, et al. Beneficial effect of carotid endarterectomy in symptomatic patients with high-grade carotid stenosis. N Engl J Med. 1990Apr 22;325(7):445-53.
--- NOTE | 2024-09-28 12:52 | EDPHYS ---
Physician Documentation [facility] Name: Vielka Sue Age: 29 yrs Sex: Female : 1995 Arrival Date: 09/28/2024 Time: 10:53 Bed 6 Private MD: ED Physician Eldon Garcia HPI: 09/28 11:01 This 29 yrs old Female presents to ER via EMS with complaints of Numbness Of ec2 Arm, Weakness. 11:01 Patient arrives today for evaluation of right sided numbness and weakness onset shortly ec2 prior to arrival, has had prior episodes to this similarly several days ago. Last known well would be several days ago. Reports associated nausea and vomiting as well. LMP was approximately 3 weeks ago. Denies any headache falls or injuries. Reports a history of bipolar disease. Denies alcohol or substance use.. BASKET TURNER: 10:54 LMP 09/14/2024, unknown kc6 Historical: - Allergies: 10:54 Tape; ha1 - PMHx: 10:54 None; ha1 - Immunization history:: Adult Immunizations up to date. - Infectious Disease History:: Denies. - Social history:: Smoking status: Reported history of juuling and/or vaping. ROS: 11:01 Constitutional: as per hpi ec2 Exam: 11:01 Constitutional: GEN: NAD Head: atraumatic Eyes: EOMI Ears: External ears are ec2 normal. CV: regular rate LUNGS: no respiratory distress ABD: non-distended SKIN: no evidence of rashes MSK: no evidence of trauma. Neuro: Cranial nerves II through XII intact, questionable weakness on the right upper and lower extremity, no effort on the right upper lower extremity however upon sudden drop test, patient was able to gently lower her right upper right lower extremity. Vital Signs: 10:54 BP 112 / 78; Pulse 106; Resp 18 S; Temp 97.8; Pulse Ox 97% ; Weight 56.7 kg; Height 4 ha1 ft. 11 in. ; 11:58 BP 98 / 58; Pulse 86; Resp 16 S; Pulse Ox 97% on R/A; kc6 12:59 BP 113 / 87; Pulse 81; Resp 18 S; Pulse Ox 100% on R/A; ha1 10:54 Body Mass Index 25.25 (56.70 kg, 149.86 cm) ha1 NIH Stroke Scale Scores: 10:54 NIHSS Score: 12 kc6 MDM: 11:00 Medical Screening Exam initiated ec2 11:01 Data reviewed: vital signs, nurses notes. ED course: Patient arrives today for ec2 evaluation of right upper and right lower extremity weakness and numbness. Examination yields neurologic findings as above. Patient reports onset just prior to arrival however has had intermittent episodes over the past several days as well. Accordingly we will forego stroke alert given duration of symptoms. Will evaluate CT head, CT angio head and neck. Patient also with slight voluntary lowering of the right upper and lower extremity on drop test of the right upper and lower extremity, question if this is voluntary. Regardless we will obtain additional intracranial workup. Will give the patient reglan and benadryl for the pt's n/v. 11:12 ED course: EKG independently reviewed and interpreted by me, shows sinus tachycardia, ec2 rate of 102, no acute ST segment elevations, intervals are nonactionable.. 12:49 ED course: On reassessment patient with improvement in her symptoms. Significant other ec2 at the bedside with encouragement and patient able to adequately move her right upper and lower extremity.. 09/28 11:01 Order name: Basic Metabolic Panel; Complete Time: 11:39 ec2 09/28 11:01 Order name: CBC with Diff; Complete Time: 11:39 ec2 09/28 11:01 Order name: Test, Serum; Complete Time: 11:39 ec2 09/28 11:01 Order name: CT Head Brain wo Cont; Complete Time: 12:16 ec2 09/28 11:01 Order name: CT Head Angio; Complete Time: 12:16 ec2 09/28 11:01 Order name: CT Neck Angio; Complete Time: 12:16 ec2 09/28 11:01 Order name: EKG; Complete Time: 11: ec2 09/28 11:01 Order name: Cardiac monitoring; Complete Time: 11:15 ec2 09/28 11:01 Order name: EKG - Nurse/Tech; Complete Time: :15 ec2 09/28 11:01 Order name: IV Saline Lock; Complete Time: 11:15 ec2 09/28 11:01 Order name: Labs collected and sent; Complete Time: : ec2 09/28 11:01 Order name: O2 Per Protocol; Complete Time: 11:02 ec2 09/28 11:01 Order name: O2 Sat Monitoring; Complete Time: 11:02 ec2 Administered Medications: 11:15 Drug: metoCLOPramide IVP 10 mg IVP once; over 1 to 2 minutes Route: IVP; Site: right kc6 antecubital; 11:58 Follow up: Response: No adverse reaction kc6 11:15 Drug: diphenhydrAMINE IVP 25 mg IVP once Route: IVP; Site: right antecubital; kc6 11:58 Follow up: Response: No adverse reaction kc6 11:15 Drug: NS 0.9% IV 500 ml 500 ml IV at 1 bolus once; to be given as a bolus over 30 kc6 minutes Volume: 500 ml; Route: IV; Rate: 1 bolus; Site: right antecubital; 11:43 Follow up: Response: No adverse reaction; IV Status: Completed infusion; IV Intake: kc6 500ml Disposition Summary: 09/28/24 12:51 Discharge Ordered Notes: Location: Home ec2 Condition: Stable ec2 Diagnosis - Paresthesia of skin ec2 Followup: ec2 - With: Private Physician - When: - Reason: Re-evaluation by your physician Discharge Instructions: - Discharge Summary Sheet ec2 - Paresthesia, [id number] ec2 Forms: - Work release form kc6 - Medication Reconciliation Form ec2 - Antibiotic Education ec2 - Prescription Opioid Use ec2 - Patient Portal Instructions ec2 - Leadership Thank You Letter ec2 NIH Stroke Scale - NIH Stroke Score Date: 09/28/2024 Time: 10:54 Total Score = 12 10. Dysarthria (speech clarity - read or repeat words) - 0(Normal) 11. Extinction and Inattention (visual/tactile/auditory/spatial/personal) - 1(Present) 1a. Level of Consciousness (LOC) - 0(Alert) 1b. Level of Consciousness (LOC) (Month \T\ Age) - 0(Both) 1c. LOC Commands (Open \T\ Closes Eyes/Real Estate Branch Manager) - 0(Both) 2. Best Gaze (Lateral Gaze Paresis) - 0(Normal) 3. Visual Field Loss - 0(No visual loss) 4. Facial Palsy - 0(Normal) 5a. Left Arm: Motor (10-second hold) - 0(No drift) 5b. Right Arm: Motor (10-second hold) - 4(No movement) 6a. Left Leg: Motor (5-second hold - always test supine) - 0(No drift) 6b. Right Leg: Motor (5-second hold - always test supine) - 4(No movement) 7. Limb Ataxia (finger/nose \T\ heel/linn - test with eyes open) - 2(Present in two limbs) 8. Sensory Loss (pinprick arms/legs/face) - 1(Mild to moderate loss) 9. Best Language: Aphasia (description/naming/reading) - 0(No aphasia) Initials: [email or web address] Signatures: Dispatcher [employer] EDMS Belkis Dela Cruz RN RN [id number] Lucía Overton RN RN [id number] Eldon Garcia MD MD [email or web address] Corrections: (The following items were deleted from the chart) 11:02 11:02 BASIC METABOLIC PANEL+C.LAB.BRZ ordered. EDMS EDMS 11:02 11:02 CBC+H.LAB.BRZ ordered. EDMS EDMS 11:02 11:02 TEST, SERUM+SC.LAB.BRZ ordered. EDMS EDMS
--- NOTE | 2024-09-28 12:52 | ER ---
Nurse's Notes [facility] Name: Vielka Sue Age: 29 yrs Sex: Female : 1995 Arrival Date: 09/28/2024 Time: 10:53 Bed 6 Private MD: Diagnosis: Paresthesia of skin Presentation: 09/28 10:54 Chief complaint: EMS states: RIGHT SIDE WEAKNESS AFTER VOMITING. HAD A SIMILAR EPISODE ha1 TWO WEEKS AGO AND IT WENT AWAY ON ITS OWN. DENIES NAUSEA AT THIS MOMENT. 10:54 Coronavirus screen: Client denies travel out of the [place] in the last 14 days. Ebola ha1 Screen: No symptoms or risks identified at this time. Initial Sepsis Screen: Does the patient meet any 2 criteria? No. Patient's initial sepsis screen is negative. Does the patient have a suspected source of infection? No. Patient's initial sepsis screen is negative. Risk Assessment: Do you want to hurt yourself or someone else? Patient reports no desire to harm self or others. Onset of symptoms was September 28, 2024. 10:54 Method Of Arrival: EMS: [facility] ha1 10:54 Acuity: ALONZO 3 ha1 10:54 Care prior to arrival: IV initiated. 20 GA, in the right antecubital area. kc6 Triage Assessment: 10:54 General: Appears comfortable, Behavior is calm, cooperative. Pain: Denies pain. Neuro: ha1 Level of Consciousness is awake, alert, obeys commands, Oriented to person, place, time, situation, Reports weakness in right arm and right leg. Cardiovascular: Capillary refill < 3 seconds Patient's skin is warm and dry. Respiratory: Airway is patent Respiratory effort is even, unlabored, Respiratory pattern is regular, symmetrical. GI: Reports nausea. : No signs and/or symptoms were reported regarding the genitourinary system. Derm: Skin is pink, warm \T\ dry. NANOTECHNICIAN: 10:54 LMP 09/14/2024, unknown kc6 Historical: - Allergies: 10:54 Tape; ha1 - PMHx: 10:54 None; ha1 - Immunization history:: Adult Immunizations up to date. - Infectious Disease History:: Denies. - Social history:: Smoking status: Reported history of juuling and/or vaping. Screenin:54 VAN Screening: Arm Drift: Flaccid or no effort against gravity. Visual Disturbance: No kc6 visual disturbance noted. Aphasia: No aphasia noted. Neglect: Patient is noted to be ignoring one side of their body. Ros Swallow Protocol Brief Cognitive Screen What is your name? Normal, Where are you right now? Normal, What year is it? Normal. Oral Mechanism Examination Facial Symmetry: Normal, Motion: Normal, Lip Closure: Normal, Oral Mechanism Result: Normal. 3 oz Water Swallow Challenge: Pt able to drink all water without stopping, coughing, choking or throat clearing: Yes Result: PASS MD Notified: Eldon Garcia MD. 11:03 [facility] ED Fall Risk Assessment (Adult) History of falling in the last 3 months, ha1 including since admission No falls in past 3 months (0 pts) Confusion or Disorientation No (0 pts) Intoxicated or Sedated No (0 pts) Impaired Gait No (0 pts) Mobility Assist Device Used No (0 pt) Altered Elimination No (0 pt) Score/Fall Risk Level 0 - 2 = Low Risk Oriented to surroundings, Maintained a safe environment, Educated pt \T\ family on fall prevention, incl call for assistance when getting out of bed, Hourly rounding (assess needs \T\ fall precautionary measures) done. Abuse screen: Denies threats or abuse. Denies injuries from another. Nutritional screening: No deficits noted. Tuberculosis screening: No symptoms or risk factors identified. Assessment: 10:54 General: Appears in no apparent distress. comfortable, well groomed, well developed, kc6 Behavior is calm, cooperative, appropriate for age. Pain: Denies pain. Neuro: Level of Consciousness is awake, alert, obeys commands, Oriented to person, place, time, situation, Appropriate for age Rod Cup Filler are weak on right Weakness in right hand(s) arm(s) leg(s) foot/feet Gait is unsteady, Speech is normal, Facial symmetry appears normal, Pupils are PERRLA, Numbness in right arm and right leg Reports dizziness, headache numbness weakness. Cardiovascular: Reports lightheadedness, Denies chest pain, shortness of breath, Capillary refill < 3 seconds Rhythm is sinus tachycardia. Respiratory: Airway is patent Trachea midline Respiratory effort is even, unlabored, Respiratory pattern is regular, symmetrical. GI: Abdomen is flat, non-distended, Bowel sounds present X 4 quads. Abd is soft and non tender X 4 quads. Reports nausea, vomiting, Patient currently denies abdominal pain, diarrhea. : No signs and/or symptoms were reported regarding the genitourinary system. EENT: No signs and/or symptoms were reported regarding the EENT system. Derm: No signs and/or symptoms reported regarding the dermatologic system. Skin is intact, is healthy with good turgor, Skin is pink, warm \T\ dry. Musculoskeletal: No signs and/or symptoms reported regarding the musculoskeletal system. Range of motion: intact in all extremities. 11:35 Reassessment: Patient and/or family updated on plan of care and expected duration. Pain ha1 level reassessed. Patient is alert, oriented x 3, equal unlabored respirations, skin warm/dry/pink. Patient states symptoms have improved. 12:30 Reassessment: Patient and/or family updated on plan of care and expected duration. Pain ha1 level reassessed. Patient is alert, oriented x 3, equal unlabored respirations, skin warm/dry/pink. Patient states feeling better. Patient states symptoms have improved. Vital Signs: 10:54 BP 112 / 78; Pulse 106; Resp 18 S; Temp 97.8; Pulse Ox 97% ; Weight 56.7 kg; Height 4 ha1 ft. 11 in. ; 11:58 BP 98 / 58; Pulse 86; Resp 16 S; Pulse Ox 97% on R/A; kc6 12:59 BP 113 / 87; Pulse 81; Resp 18 S; Pulse Ox 100% on R/A; ha1 10:54 Body Mass Index 25.25 (56.70 kg, 149.86 cm) [facility] NIH Stroke Scale Scores: 10:54 NIHSS Score: 12 [facility] ED Course: 10:54 Patient arrived in ED. ss 10:54 Maintain EMS IV. Dressing intact. Good blood return noted. Site clean \T\ dry. Gauge \T\ rin 6 site: 20G RAC. Flushed with 10 mL NS. Patient maintains SpO2 saturation greater than 95% on room air. 10:54 Patient has correct armband on for positive identification. Bed in low position. Call [facility] light in reach. Side rails up X2. secured entrance monitor on. Pulse ox on. NIBP on. Door closed. Noise minimized. Lights dimmed. Warm blanket given. Pillow given. 10:54 Arm band placed on right wrist. kc6 11:00 Triage completed. ha1 11:00 Eldon Garcia MD is Attending Physician. ec2 11:02 Lucía Overton, RN is Primary Nurse. kc6 11:15 Basic Metabolic Panel Sent. bc6 11:15 CBC with Diff Sent. bc6 11:15 Initial lab(s) drawn, by me, sent to lab. bc6 11:53 CT Head Brain wo Cont In Process Unspecified. EDMS 11:53 CT Head Angio In Process Unspecified. EDMS 11:53 CT Neck Angio In Process Unspecified. EDMS 13:13 No provider procedures requiring assistance completed. IV discontinued, intact, kc6 bleeding controlled, No redness/swelling at site. Pressure dressing applied. Administered Medications: 11:15 Drug: metoCLOPramide IVP 10 mg IVP once; over 1 to 2 minutes Route: IVP; Site: right [facility] antecubital; 11:58 Follow up: Response: No adverse reaction kc6 11:15 Drug: diphenhydrAMINE IVP 25 mg IVP once Route: IVP; Site: right antecubital; kc6 11:58 Follow up: Response: No adverse reaction kc6 11:15 Drug: NS 0.9% IV 500 ml 500 ml IV at 1 bolus once; to be given as a bolus over 30 kc6 minutes Volume: 500 ml; Route: IV; Rate: 1 bolus; Site: right antecubital; 11:43 Follow up: Response: No adverse reaction; IV Status: Completed infusion; IV Intake: kc6 500ml Medication: 12:59 VIS not applicable for this client. ha1 Intake: 11:43 IV: 500ml; Total: 500ml. kc6 Outcome: 12:51 Discharge ordered by . ec2 13:13 Discharged to home ambulatory, with significant other, kc6 13:13 Condition: improved 13:13 Discharge instructions given to patient, significant other, Instructed on discharge instructions, follow up and referral plans. Demonstrated understanding of instructions, follow-up care, 13:13 Patient left the ED. kc6 NIH Stroke Scale - NIH Stroke Score Date: 09/28/2024 Time: 10:54 Total Score = 12 10. Dysarthria (speech clarity - read or repeat words) - 0(Normal) 11. Extinction and Inattention (visual/tactile/auditory/spatial/personal) - 1(Present) 1a. Level of Consciousness (LOC) - 0(Alert) 1b. Level of Consciousness (LOC) (Month \T\ Age) - 0(Both) 1c. LOC Commands (Open \T\ Closes Eyes/Web Press Operator Apprentice) - 0(Both) 2. Best Gaze (Lateral Gaze Paresis) - 0(Normal) 3. Visual Field Loss - 0(No visual loss) 4. Facial Palsy - 0(Normal) 5a. Left Arm: Motor (10-second hold) - 0(No drift) 5b. Right Arm: Motor (10-second hold) - 4(No movement) 6a. Left Leg: Motor (5-second hold - always test supine) - 0(No drift) 6b. Right Leg: Motor (5-second hold - always test supine) - 4(No movement) 7. Limb Ataxia (finger/nose \T\ heel/linn - test with eyes open) - 2(Present in two limbs) 8. Sensory Loss (pinprick arms/legs/face) - 1(Mild to moderate loss) 9. Best Language: Aphasia (description/naming/reading) - 0(No aphasia) Initials: kc6 Signatures: Dispatcher [employer] Calista Lino RN RN ss Belkis Dela Cruz RN RN ha1 Lucía Overton RN RN kc6 Zara Joiner6 Eldon Garcia MD MD ec2
[2024-09-28 13:20] VITALS: TEMP 97.8
[2024-09-28 13:23] VITALS: BP 113/87; O2SAT 100
--- NOTE | 2024-09-30 13:00 | EKG ---
Test Date: 2024-09-28 Test Time: 11:08:28 Housekeeping Supervisor: SHABANA MEASUREMENT RESULTS: Intervals: Rate: 102 NV: 168 QRSD: 66 QT: 342 QTc: 445 [place]: P: 70 NV: 168 QRS: 139 T: 40 INTERPRETIVE STATEMENTS: Sinus tachycardia Right axis deviation Abnormal ECG No previous ECG available for comparison Electronically Signed On 09-30-24 12:58:44 PATHOLOGY LABORATORY TECHNOLOGIST by Jose David Henry
== END 2024-09-28 13:13 | disposition home or self-care (01) ==
LOC: ER 10:53
DX: R20.2 Paresthesia of skin (principal); R53.1 Weakness
CPT/HCPCS: 36415; 70450; 70496; 70498; 80048; 84703; 85025; 93005; 96374; 96375; 99285; J1200; J2765; J7040; Q9967

== ENCOUNTER 2025-04-21 11:13 | Emergency (ER) | payer OTHER ==
--- OUTSIDE RECORDS SUMMARY | 2025-04-21 12:46 | XMS REPORT | Continuity of Care Document ---
Author Name Unknown Address [address] [facility] [address] [place] [address] [facility] [place] Address [address] [facility] 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 Name Role Phone Pcp, Patient Does Not Have A Primary Care Physic margret Claritza Avila CNM Attending Clinician [phone] Lab, Tong Attending Clinician Unavailable Ultrasound, CandaceMfsee Attending Clinician Celina Llanos MD Attending Clinician [phone] Doctor Unassigned, Grampian Attending Clinician PRIYA Rasheed Attending Clinician PRIYA Vargas Attending Clinician Geovani tejeda Physician, No Primary or Family Admitting Clinic margret Unavailable Payers Payer Name Policy Type Policy Number Effective Date Expirati on Date Source [employer] II [id number] 2024 00:00:00 Problems Condition Name Condition Details Condition Category Status Onset Date Resolution Date Last Treatment Date Treating Clinician Comments Source Depression affecting Depression affecting Disease Active 6-05 00:00: 00 [facility] Maternal varicella, non-immune Maternal varicella, non-immune Disease Active 6-04 00:00: 00 [facility] Obesity affecting Obesity affecting Disease Active 6-03 00:00: 00 [facility] Bipolar disease during Bipolar disease during Disease Active 3-16 00:00: 00 [facility] Mastitis during Mastitis during Disease Resolve d 7-17 00:00: 00 2025-04-05 00:00:00 2025-04-05 08:17:23 [facility] UTI (urinary tract infection) during UTI (urinary tract infection) during Disease Resolve d 618 00:00: 00 2025-04-05 00:00:00 2025-04-05 08:17:18 [facility] Nexplanon in place Nexplanon in place Disease Resolve d 603 00:00: 00 2025-02-23 00:00:00 2025-02-23 12:53:18 [facility] Allergies, Adverse Reactions, Alerts Allergy Name Allergy Type Status Severity Reaction(s) Onset Date Inactive Date Treating Clinician Comments Source folic acid DA Active [place] 2018-09 0 00:00: 00 [facility] adhesive tape DA Active [place] 2018-09 0 00:00: 00 [facility] folic acid DA Active [place] RASH 2018-09 0 00:00: 00 [facility] adhesive tape DA Active [place] RASH 2018-09 0 00:00: 00 [facility] folic acid DA Active [place] 04-28 00:00: 00 [facility] adhesive tape DA Active [place] 04-28 00:00: 00 [facility] No Known Allergie s DA Active U 6- 00:00: 00 [facility] NO KNOWN DRUG ALLERGIE S Drug Class Active 1-06 00:00: 00 [facility] No Known Drug Allergie s Propensi ty to adverse reaction s Active 09-13 00:00: 00 [facility] Social History Social Habit Start Date Stop Date Quantity Comments Source ASSERTION 2024-11-24 00:00:00 [facility] Sexual orientation [facility]iversity [facility] Alcoholic beverage intake 2025-04-19 00:00:00 2025-04-19 00:00:00 Ex-drinker (finding) [facility] History of Social function 2025-02-08 00:00:00 2025-02-08 00:00:00 [facility] Tobacco use and exposure 2013-01-22 00:00:00 2013-01-22 00:00:00 Smokeless tobacco non-user [facility] Sex assigned at 1995 00:00:00 1995 00:00:00 [facility] Smoking Status Start Date Stop Date Source Never smoked tobacco [facility] Medications Ordered Medication Name Filled Medication Name Start Date Stop Date Current Medication? Ordering Clinician Indication Dosage Frequency Signature (SIG) Comments Components Source cephALEXin 500 mg capsule 03-24 00:00: 00 04-04 04:59 :00 Yes [id number] 500mg Take 1 capsule by mouth 4 times daily for 10 days. [facility] Nitrofurant oin&Nit. Macrocryst (MACROBID) 100 mg capsule 100 mg 02-18 15:45: 00 02-18 14:52 :00 No 100mg 100 mg, Oral, ONCE, 1 dose, On Fri02/18/25 at 1045, Routine, Reason for Anti-Infec tive: Documented Infection, Documented Infection Site: Urine, Duration of therapy: Once (ED) [facility] NaCl 0.9% (NS) bolus infusion 1,000 mL 02-18 14:15: 00 02-18 15:28 :00 No 1000mL at 999 mL/hr, 1,000 mL, IV Infusion, ONCE, 1 dose, On Fri02/18/25 at 0915, BERNADINE [facility] Nitrofurant oin&Nit. Macrocryst 100 mg capsule 02-18 00:00: 00 02-26 04:59 :00 Yes [id number] 100mg Take 1 capsule by mouth in the morning and 1 capsule in the evening. Do all this for 7 days. [facility] Vital Signs Vital Name Observation Time Observation Value Comments Yordan whitney Systolic blood pressure 2025-04-19 20:30:00 111 mm[Hg] [facility] Diastolic blood pressure 2025-04-19 20:30:00 73 mm[Hg] [facility] Heart rate 2025-04-19 20:30:00 95 /min [facility] Body temperature 2025-04-19 20:30:00 36.17 Manuela [facility] Respiratory rate 2025-04-19 20:30:00 17 /min [facility] Body height 2025-04-19 20:30:00 149.9 cm [facility] Body weight 2025-04-19 20:30:00 73.086 kg [facility] BMI 2025-04-19 20:30:00 32.54 kg/m2 [facility] Systolic blood pressure 2025-04-05 12:35:00 107 mm[Hg] [facility] Diastolic blood pressure 2025-04-05 12:35:00 71 mm[Hg] [facility] Heart rate 2025-04-05 12:35:00 90 /min Unive [facility] Body temperature 2025-04-05 12:35:00 36.33 Manuela [facility] Respiratory rate 2025-04-05 12:35:00 17 /min [facility] Body height 2025-04-05 12:35:00 149.9 cm [facility] Body weight 2025-04-05 12:35:00 72.717 kg [facility] BMI 2025-04-05 12:35:00 32.38 kg/m2 [facility] Systolic blood pressure 2025-03-24 21:08:00 108 mm[Hg] [facility] Diastolic blood pressure 2025-03-24 21:08:00 74 mm[Hg] [facility] Heart rate 2025-03-24 21:08:00 78 /min [facility] 2025-03-24 21:08:00 36.39 Manuela [facility] Respiratory rate 2025-03-24 21:08:00 18 /min [facility] Body height 2025-03-24 21:08:00 149.9 cm [facility] Body weight 2025-03-24 21:08:00 73.539 kg Univ [facility] BMI 2025-03-24 21:08:00 32.75 kg/m2 [facility] Systolic blood pressure 2025-03-08 13:11:00 98 mm[Hg] [facility] Diastolic blood pressure 2025-03-08 13:11:00 70 mm[Hg] [facility] Heart rate 2025-03-08 13:11:00 86 /min [facility] Body temperature 2025-03-08 13:11:00 36.28 Manuela [facility] Respiratory rate 2025-03-08 13:11:00 17 /min [facility] Body height 2025-03-08 13:11:00 149.9 cm [facility] Body weight 2025-03-08 13:11:00 70.931 kg [facility] BMI 2025-03-08 13:11:00 31.58 kg/m2 [facility] Systolic blood pressure 2025-02-23 17:34:00 103 mm[Hg] [facility] Diastolic blood pressure 2025-02-23 17:34:00 67 mm[Hg] [facility] Heart rate 2025-02-23 17:34:00 79 /min Unive [facility] Body temperature 2025-02-23 17:34:00 36.67 Manuela [facility] Respiratory rate 2025-02-23 17:34:00 16 /min [facility] Body height 2025-02-23 17:34:00 149.9 cm [facility] Body weight 2025-02-23 17:34:00 69.457 kg [facility] BMI 2025-02-23 17:34:00 30.93 kg/m2 [facility] Systolic blood pressure 2025-02-18 15:00:00 110 mm[Hg] [facility] Diastolic blood pressure 2025-02-18 15:00:00 70 mm[Hg] [facility] Heart rate 2025-02-18 15:00:00 65 /min [facility] Body temperature 2025-02-18 15:00:00 37.11 Manuela [facility] Respiratory rate 2025-02-18 15:00:00 14 /min [facility] Oxygen saturation in Arterial blood by Pulse oximetry 2025-02-18 15:00:00 99 /min [facility] Body height 2025-02-18 13:21:00 149.9 cm [facility] Body weight 2025-02-18 13:21:00 68.947 kg [facility] BMI 2025-02-18 13:21:00 30.70 kg/m2 [facility] Procedures Procedure Date / Time Performed Performing Clinicia n Source SECOND AND THIRD TRIMESTER ULTRASOUND 2025-03-23 16:06:00 Claritza Avila [facility] NIPT - NON-INVASIVE TEST RESULTS 2025-02-21 20:44:15 Doctor Unassigned, Grampian [facility] URINALYSIS 2025-02-18 14:12:00 [facility] COMP. METABOLIC PANEL ([id number]) 2025-02-18 13:44:00 Priya Blum [facility] CBC WITH DIFF 2025-02-18 13:44:00 [facility] POCUS OB US ABD LIMITED 2025-02-18 13:19:28 Priya Blum [facility] Encounters Start Date/Time End Date/Time Encounter Type Admission Type Attending Clinicians Care Facility Care Department Encounter ID Source 2020-07-26 23:00:00 Inpatient [facility] [id number] [facility] 2025-04-19 00:00:00 2025-04-19 16:06:05 Telephone Claritza Avila [facility] TELE[employer] NETWORK MANAGER REGIONAL MATERNAL & CHILD [facility] 1.2.840.114 350.1.13.10 4.2.7.2.686 [id number] [facility] 2025-04-19 15:15:00 2025-04-19 15:58:57 Routine Visit Claritza Avlia [facility] TE[employer] NETWORK MANAGER [facility] & CHILD [facility] 1.2.840.114 350.1.13.10 4.2.7.2.686 [id number] [facility] 2025-04-07 00:00:00 2025-04-07 21:39:52 Abstract Claritza Avila [facility] TELE[employer] NETWORK MANAGER [facility] CHILD [facility] 1.2.840.114 350.1.13.10 4.2.7.2.686 [id number] [facility] 2025-04-05 07:30:00 2025-04-05 08:08:18 Routine Visit Claritza Avila [facility] TELECOM NETWORK MANAGER [facility] CHILD [facility] 1.2.840.114 350.1.13.10 4.2.7.2.686 [id number] 107 [id number] [facility] 2025-03-24 16:00:00 2025-03-24 16:30:47 Routine Visit Claritza Avila [facility] TELE[employer] NETWORK MANAGER [facility] & CHILD [facility] 1.2.840.114 350.1.13.10 4.2.7.2.686 [id number] [facility] 2025-03-23 00:00:00 2025-03-23 11:56:55 Abstract Claritza Avila [facility] TELE[employer] NETWORK MANAGER [facility] CHILD [facility] 1.2.840.114 350.1.13.10 4.2.7.2.686 [id number] 107 [id number] [facility] 2025-03-23 00:00:00 2025-03-23 11:19:00 Telephone Claritza Avila [facility] TELE[employer] NETWORK MANAGER [facility] MATERNAL & CHILD [facility] 1.2.840.114 350.1.13.10 4.2.7.2.686 [id number] 107 [id number] [facility] 2025-03-23 08:45:00 2025-03-23 11:17:13 Quality Process Engineer Visit Lab, [facility], [facility] TELE[employer] NETWORK MANAGER [facility] & CHILD [facility] 1.2.840.114 350.1.13.10 4.2.7.2.686 [id number] [facility] 2025-03-23 10:00:00 2025-03-23 11:14:41 Quality Process Engineer Visit Ultrasound, Celina Kohler [facility] TELE[employer] NETWORK MANAGER [facility] & CHILD [facility] 1.2.840.114 350.1.13.10 4.2.7.2.686 [id number] [facility] 2025-03-09 00:00:00 2025-03-09 15:55:54 Telephone [place] Claritza Ortiz [facility] TELECOM NETWORK MANAGER [facility] CHILD [facility] 1.2.840.114 350.1.13.10 4.2.7.2.686 [id number] 107 [id number] [facility] 2025-03-08 08:15:00 2025-03-08 08:41:28 Routine Visit Claritza Avila [facility] TELECOM NETWORK MANAGER [facility] & CHILD [facility] 1.2.840.114 350.1.13.10 4.2.7.2.686 [id number] 107 [id number] [facility] 2025-02-23 12:45:00 2025-02-23 13:18:34 Office Visit Claritza Avila [facility] TELECOM NETWORK MANAGER [facility] & CHILD [facility] 1.2.840.114 350.1.13.10 4.2.7.2.686 [id number] 107 [id number] [facility] 2025-02-22 00:00:00 2025-02-22 08:39:26 Telephone Claritza Avila [facility] TELECOM NETWORK MANAGER [facility] MATERNAL & CHILD [facility] 1.2.840.114 350.1.13.10 4.2.7.2.686 [id number] 107 [id number] [facility] 2025-02-21 00:00:00 2025-02-22 02:05:32 Orders Only Doctor Unassigned, Grampian Doctor Unassigned, Grampian [facility] 1.2.840.114 350.1.13.10 4.2.7.2.686 [id number] [facility] 2025-02-18 08:21:00 2025-02-18 10:45:00 Emergency X PRIYA BLUM SANDRA [facility] ERT [id number] [facility] Results Test Description Test Time Test Comments Results Resul t Comments Source NIPT - NON-INVASIVE TEST RESULTS 2025-02-06 6 20:44:15 Ordered by an unspecified provider. [facility] POCUS OB US ABD Limited 2025-02-06 3 13:41:07 Study Date and Time: 2025-02-18 08:19Study Author: Priya Blum OB - TAUS:Indications: ? ?Indications for this focused Ultrasound:: Abdominal/Pelvic Pain ? ?Other (answer below): N/AViews Obtained: ? ?The following structures were examined from a transabdominal approach: Transverse uterus and Vesicouterine/Recto uterine Spaces, Sagittal uterus and Vesicouterine/Recto uterine Spaces, Right Adnexa, Left Adnexa ? ?Other views: N/AUterine Findings: ? ?Uterus: N/A ? ?Vesicouterine/Rect outerine spaces: No fluid ? ?Intrauterine : Present ? ?Findings visualized to confirm IUP: heart activity, pole ? ?FHR (bpm): N/A ? ?Other: N/ARight Adnexa: ? ?The right adnexa was visualized with the following findings:: Normal ? ?Other: N/A ? ?Spectral doppler flow: N/A ? ?Color Doppler flow: N/A ? ?Other right adnexal findings: N/ALeft Adnexa: ? ?The left adnexa was visualized with the following findings:: Normal ? ?Other: N/A ? ?Spectral doppler flow: N/A ? ?Color Doppler flow: N/AInterpretation: ? ?Images above were diagnostic for the following findings: Live intrauterine ? ?Other (answer below): N/A ? ?Other uterine or adnexal interpretation: N/AConfirmatory Study: ? ?What confirmatory study was performed during ED patient evaluation?: No additional imaging ordered ? ?Confirmatory study findings/comments: N/A Signed by Priya Blum on 2025-02-18 08:41 [facility] - CT ABD PELVIS [id number] 17:35:00FAX: Jose Elder MD [phone] [place]: St: REG Name: CHUNG SUE [facility] : 1995 Age/S: 23/F[address] [facility] Unit: [id number] Loc: [place], [place] Phys: [place] [address] Acct: [id number] Dis Date: Status: REG ER PHONE #: [phone] Exam Date: 06/20/2019 1717 FAX #: [phone] Reason: LEft flank pain EXAMS: CPT CODE: [id number] CT ABD PELVIS W/CONT 57290 HISTORY: LEft flank pain EXAM TYPE: CT abdomen and pelvis with IV contrast. Location code:C3 TECHNIQUE: Contrast - IV contrast was given, no oral contrast was given Portal venous phase - abdomen and pelvis No delayed phase images were obtained. Reconstructions - coronal and sagittal planes One or more of the following dose reduction techniques were used: Automated exposure control, adjustment of the mA and/or kV according to patient size, and/or utilization of iterative reconstruction technique.COMPARISON: CT abdomen and pelvis 04/28/2019 FINDINGS: Statements: None. Thoracic: Included images of the lower chest demonstrate no abnormalities. Hepatobiliary: The liver is normal without focal lesion. Previously identified hypodensity seen in the posterior left lobe near the falciform ligament is no longer visualized, possibly due to transient fatty infiltration. The gallbladder is normal. No biliary dilation. Pancreas: Normal. Spleen: Normal. Adrenals: Normal. Genitourinary: There is symmetric enhancement of both kidneys. A 5 cm hypodensity is present in the right interpolar region and a4 mm hypodensity is present in the left interpolar region (image 30, series 2), both too small to characterize but statistically cysts. No hydronephrosis or renal calculi identified. No perinephric fat stranding. Evaluation of the bladder is limited, but no obvious bladder abnormality is present. The uterus is unremarkable. Simple cystic PAGE 1 Signed Report (CONTINUED) FAX: Jose Elder MD [phone] [place]: St: REG ------- Name: CHUNG SUE [facility] : 1995 Age/S: 23/F [address] [facility] Unit: [id number] Loc: [place], [place]: [place] [address] Acct: [id number] Dis Date: Status: REG ER PHONE #: [phone] Exam Date: 06/20/2019 1717 FAX #: [phone] Reason: LEft flank pain EXAMS: CPT CODE: [id number] CT ABD PELVIS W/CONT 59199 (Continued) structure seen in the right adnexa measuring 4.2 cm AP by 3.3 cm TR by 3.4 cm CC (image 72, series 2; image 42, [email or web address]), with subtle appearance of rim enhancement; possibly a corpus luteum cyst or hemorrhagic cyst associated with the right ovary. Normal left ovary (image 71, series 2). No left adnexal mass. No sig nificant pelvic free fluid. Gastrointestinal: No bowel obstruction or perienteric inflammation. Theappendix is normal. Vascular: No evidence of aneurysm [...] 2. Normal appendix. 3. Normal kidneys bilaterally without evidence of hydronephrosis or renal calculi. No perinephric fat stranding. at 1736 Reported and signed by: LOLA NEGRETE M.D. CC: Jose Elder MD Technologist: MAXIMILIAN LAWRENCE Trnscrd Dt/Tm: 06/20/2019 (8007) [email or web address] Orig Print D/T: S: 06/20/2019 (6181 PAGE 2 Signed ReportBASIC METABOLIC [id number] 16:09:00* Test Item Value Reference Range Interpretation [...] 9.0 mg/dl 8.0-10.5 N HEPATIC FUNCTION PANEL [id number] 16:09:00* Test Item Value Reference Range Interpretation [...] code = ALKP) 63 Units/L 50.0-136.0 N [id number] 16:09:00* Test Item Value Reference Range Interpretation Comme nts LIPASE (test code = LIP) 82 Units/L 65.0-230.0 N BASIC METABOLIC [id number] 16:02:00* Test Item Value Reference Range Interpretation [...] = CA) mg/dl 8.0-10.5 HEPATIC FUNCTION PANEL [id number] 16:02:00* Test Item Value Reference Range Interpretation [...] ( test code = ALKP) Units/L 50.0-136.0 [id number] 16:02:00* Test Item Value Reference Range Interpretation Comme nts LIPASE (test code = LIP) Units/L 65.0-230.0 URINALYSIS [id number] 15:59:00* Test Item Value Reference Range Interpretation [...] (test code = MUCU) 2+ UR HCG [id number] 15:59:00* Test Item Value Reference Range Interpretation Comme nts UR HCG QUAL (test code = HCGQLU) NEGATIVE NEGATIVE CBC W/AUTO [id number] 15:56:00* Test Item Value Reference Range Interpretation [...] = BA#) 0.1 K/mm3 0.0-0.2 N URINALYSIS [id number] 15:53:00* Test Item Value Reference Range Interpretation [...] (test code = BACU) NONE UR HCG [id number] 15:53:00* Test Item Value Reference Range Interpretation Comme nts UR HCG QUAL (test code = HCGQLU) NEGATIVE - US ABDOMEN [id number] 09:23:00FAX: Taj Gonzalez MD [place]: St: DEP Name: CHUNG SUE [facility] : 1995 Age/S: 23/F [address] [employer] Unit #: [id number] Loc: [place], [place]: [place] [address] Acct: [id number] Dis Date: Status: DEP ER PHONE #: [phone] Exam Date: 04/28/2019 1120 FAX #: [phone] Reason: RUQ pain Report Has Been Amended EXAMS: CPT CODE: [id number] US ABDOMEN LTD 71944 A ddendum - 04/29/2019 SIGNED 04/29/2019 ADDENDUM: [id number] US/USABDLTD Addendum: The 2nd sentence describing the [...] distended. No stones or wall thickening evident. Commonbile duct normal 2.8 mm. The right kidney appears to be intact measuring 10.2 cm in length. No shadowing stones or obstruction or cortical abnormality. No ascites found. PAGE 1 Signed Report (CONTINUED) FAX: Taj Gonzalez MD [place]: St: DEP Name: CHUNG SUE [facility] : 1995 Age/S: [address] [facility] [employer] Unit #: [id number] Loc: [place], [place]: [place] [address] Acct: [id number] Dis Date: Status: DEP ER PHONE #: [phone] Exam Date: 04/28/2019 1120 FAX #: [phone] Reason: RUQ pain Report Has Been Amended EXAMS: CPT CODE: [id number] US ABDOMEN LTD 87935 (Continued) Impression: Normal gallbladder appearance. No gallstones evident. Iso echogenic, very subtle non mass-like area in the posterior left lobe of the liver, suggesting benign findings. Location: U 19 at 1142 Reported and signed by: Get Gottlieb M.D. CC: Taj Gonzalez MD Technologist: KATIE MOYA [facility] Date/Time/By: 04/28/2019 (1142) : By: [facility] PAGE 2 Signed Report FAX: Taj Gonzalez MD [place]: St: DEP -- Name: CHUNG SUE [facility] : 1995 Age/S: 23/F [address] [facility] Unit #: [id number] Loc: [place], [place]: [place] [address] Acct: [id number] Dis Date: Status:[facility] ER PHONE #: [phone] Exam Date: 04/28/2019 1120 FAX #: [phone] Reason: RUQ pain Report Has Been Amended EXAMS: CPT CODE: [id number] US ABDOMEN LTD 08066 (Continued) Orig Print D/T: S: 04/28/2019 (1145) PAGE 3 Signed Report- US ABDOMEN [id number] 11:42:00FAX: Taj Gonzalez MD [place]: St: REG Name: CHUNG SUE [facility] : 1995 Age[facility]S: 23/F [address] [facility] [id number] Loc: [place], [place]: [place] [address] Acct: [id number] Dis Date: Status: [facility] ER PHONE #: [phone] Exam Date: 04/28/2019 1120 FAX #: [phone] Reason: RUQ pain EXAMS: CPT CODE: [id number] US ABDOMEN LTD 77530 ULTRASOUND: - US ABDOMEN LTD History: Right upper quadrant pain, abdominal pain Comparison: None. B-mode/Govea scale imaging with color Doppler perfusion imaging and spectral analysis was performed. The aorta has normal diameter maximum measurement 1.3 cm. Pancreas intact where seen. As the pancreas is normal. Detail partially obs cured. IVC intact seen at the edge of [...] bile duct normal 2.8 mm. The right kidneyappears to be intact measuring 10.2 cm in length. No shadowing stones or obstruction or cortical abn ormality. No ascites found. Impression: Normal gallbladder appearance. No gallstones evident. Iso echogenic, very subtle non mass-like area in the posterior left lobe of the liver, suggesting benign findings. Location: U 19 at 1142 Reported and signed by: Get Gottlieb M.D. CC: Taj Gonzalez MD Technologist: KATIE MOYA Trnazrd Date/Time/By: 04/28/2019 (2599) : By: [facility] PAGE 1 Signed Report FAX: Taj Gonzalez MD [place]: St: REG ---- Name: CHUNG SUE [facility] : 1995 Age/S: 23/F [address] [facility] Unit #: [id number] Loc: [place], [place]: [place] [address] Acct: [id number] Dis Date: Status: REG ER PHONE #: [phone] Exam Date: 04/28/2019 1120 FAX #: [phone] Reason: RUQ pain EXAMS: CPT CODE: [id number] US ABDOMEN LTD 13353 (Continued) Orig Print D/T: S: 04/28/2019 (8961) PAGE 2 Signed Report- CT ABD PELVIS [id number] 10:06:00 FAX: Taj Gonzalez MD [place]: St: REG Name: CHUNG SUE [facility] : 1995 Age/S: 23/F [address] [facility] Unit: [id number] Loc: [place], [place] Phys: [place] [id number] Acct: [id number] Dis Date: Status: REG ER PHONE #: [phone] Exam Date: 04/28/2019 0958 FAX #: [phone] Reason: RUQ pain, RLQ PAIN EXAMS: CPT CODE: [id number] CT ABD PELVIS W/CONT 88926 HISTORY: Right lower quadrant pain, right upper quadrant pain. CT abdomen and pelvis, contrast enhanced. Reformatted sagittal and coronal images. COMPARISON: July 23, 2011 Automated exposure control, iterative reconstruction technique, and/or adjustment of mA and/or kV according to patient's size was utilized for optimum radiation dose reduction. Following the intravenous administration of 100 ml of [id number] but no oral contrast, a study of the abdomen and pelvis was performed. The study includes some of the lung bases, which appear to be clear. No pericardial or pleural fluid can be found. The liverperfuses normally with no focal lesions. Margins are smooth. There is a vague subtly hypodense perfusion abnormality in the left lobe of the [...] Bowel loop pattern intact. Stool content appropriate. Normal appendix is found. The study of the pelvis shows thickened bladder, nearly empty. Correlate forcystitis changes. Adnexal areas with soft tissue density likely a dominant cyst, left ovary up to 2.2 cm. Multiple tiny follicular cysts right ovary with normal size. There does not appear to be evidence of free fluid. No inguinal hernia. No free air. Bony structures intact. No bony destructive or sclerotic process.. IMPRESSION: Normal appendix and bowel loop pattern. Vague hypodensity in the posterior left lobe near the falciform PAGE 1 Signed Report (CONTINUED) FAX: Taj Gonzalez MD [place]: St: REG -- Name: WILLALESLIE BAGLEYDiana Vega [facility] : 1995 Age/S: 23/F [address] [facility] Unit: [id number] Loc: [place], [place] Phys: [place] [id number] Acct: [id number] Dis Date: Status: REG ERPHONE #: [phone] Exam Date: 04/28/2019957 FAX #: [phone] Reason: RUQ pain, RLQ PAIN EXAMS: CPT CODE: [id number] CT ABD PELVIS W/CONT 73050 (Continued) ligament may need further assessmentwith sonography or MRI. Correlate with liver enzyme abnormalities. No obvious gallbladder abnormality acutely. Normal common bile duct Location: U19 at 1006 Reported and signed by: Get Gottlieb M.D. CC: Taj Fajardo Technologist: CHUNG GALAVIZ Trnscrd Dt/Tm: 04/28/2019 (1006) [facility]ay.[facility] OrigPrint D/T: S: 04/28/2019 (1009 PAGE 2 Signed ReportURINALYSIS [id number] 09:40:00* Test Item Value Reference Range Interpretation [...] Specimen comments: Clean CatchDRUGS OF ABUSE SCREEN [id number] 09:37:00* Test Item Value Reference Range Interpretation [...] Methadone cut-o ff concentration: 300 ng/mL URINALYSIS [id number] 09:37:00* Test Item Value Reference Range Interpretation [...] BACU) NONE Specimen comments: Clean CatchBASIC METABOLIC [id number] 09:24:00* Test Item Value Reference Range Interpretation [...] 8.6 mg/dl 8.0-10.5 N Specimen comments: Clean [employer] Nut ConfectionsHEPATIC FUNCTION PANEL [id number] 09:24:00* Test Item Value Reference Range Interpretation [...] 60 Units/L 50.0-136.0 N Specimen comments: Clean [id number] 09:24:00* Test Item Value Reference Range Interpretation Comme [facility] LIPASE (test code = LIP) 67 Units/L 65.0-230.0 N Specimen comments: Clean [facility] [id number] 09:24:00* Test Item Value Reference Range Interpretation Comme [facility] HCG SERUM QUAL (test code = HCGQL) NEGATIVE NEGATIVE Specimen comments: Clean [facility] [id number] 09:21:00* Test Item Value Reference Range Interpretation [...] 8.0-10.5 Specimen comments: Clean CatchHEPATIC FUNCTION PANEL [id number] 09:21:00* Test Item Value Reference Range Interpretation [...] = ALKP) Units/L 50.0-136.0 Specimen comments: Clean [id number] 09:21:00* Test Item Value Reference Range Interpretation Comme nts LIPASE (test code = LIP) Units/L 65.0-230.0 Specimen comments: Clean CatchHCG SERUM [id number] 09:21:00* Test Item Value Reference Range Interpretation Comme nts HCG SERUM QUAL (test code = HCGQL) NEGATIVE NEGATIVE Specimen comments: Clean CatchCBC W/AUTO [id number] 09:18:00* Test Item Value Reference Range Interpretation [...] BA#) 0.1 K/mm3 0.0-0.2 N BASIC METABOLIC [id number] 09:15:00* Test Item Value Reference Range Interpretation [...] 8.0-10.5 Specimen comments: Clean CatchHEPATIC FUNCTION PANEL [id number] 09:15:00* Test Item Value Reference Range Interpretation [...] = ALKP) Units/L 50.0-136.0 Specimen comments: Clean [id number] 09:15:00* Test Item Value Reference Range Interpretation Comme nts LIPASE (test code = LIP) Units/L 65.0-230.0 Specimen comments: Clean CatchHCG SERUM [id number] 09:15:00* Test Item Value Reference Range Interpretation Comme nts HCG SERUM QUAL (test code = HCGQL) NEGATIVE NEGATIVE Specimen comments: Clean CatchCOMPREHENSIVE METABOLIC [id number] 16:14:00* Test Item Value Reference Range Interpretation [...] ALKP) 54 Units/L 50.0-136.0 N HCG SERUM [id number] 16:14:00* Test Item Value Reference Range Interpretation Comme nts HCG SERUM QUAL (test code = HCGQL) NEGATIVE NEGATIVE [id number] 16:14:00* Test Item Value Reference Range Interpretation Comme nts ALCOHOL (test code = ALC) 0.00 gm/dL 0.00-0.00 N ETHYL ALCOHOL HEDY THOMPSON - INTERPRETATION: 0.050 GM/DL - NOT INTOXICATED 0.100 GM/DL - INTOXICATED 0.350-0.450 GM/DL - SEVERELY INTOXICATED 0.550 GM/DL- FATAL INTOXICATION COMPREHENSIVE METABOLIC [id number] 16:08:00* Test Item Value Reference Range Interpretation [...] ALKP) 54 Units/L 50.0-136.0 N HCG SERUM [id number] 16:08:00* Test Item Value Reference Range Interpretation Comme nts HCG SERUM QUAL (test code = HCGQL) NEGATIVE [id number] 16:08:00* Test Item Value Reference Range Interpretation Comme nts ALCOHOL (test code = ALC) 0.00 gm/dL 0.00-0.00 N ETHYL ALCOHOL NV DONNA - INTERPRETATION: 0.050 GM/DL - NOT INTOXICATED 0.100 GM/DL - INTOXICATED 0.350-0.450 GM/DL - SEVERELY INTOXICATED 0.550 GM/DL- FATAL INTOXICATION DRUGS OF ABUSE SCREEN [id number] 16:04:00* Test Item Value Reference Range Interpretation [...] cut-o ff concentration: 300 ng/mL COMPREHENSIVE METABOLIC [id number] 16:03:00* Test Item Value Reference Range Interpretation [...] code = ALKP) Units/L 50.0-136.0 HCG SERUM [id number] 16:03:00* Test Item Value Reference Range Interpretation Comme nts HCG SERUM QUAL (test code = HCGQL) NEGATIVE [id number] 16:03:00* Test Item Value Reference Range Interpretation Comme nts ALCOHOL (test code = ALC) gm/dL 0.00-0.00 URINALYSIS [id number] 16:02:00* Test Item Value Reference Range Interpretation [...] (test code = BACU) FEW NONE URINALYSIS [id number] 15:55:00* Test Item Value Reference Range Interpretation [...] (test code = BACU) NONE CBC W/AUTO [id number] 15:49:00* Test Item Value Reference Range Interpretation [...] code = BA#) 0.1 K/mm3 0.0-0.2 N Notes Date/Time Note Provider Source 2025-04-19 15:51:47 Noted. Jonathan Uribe [facility] 2025-04-19 15:05:39 Copied from [facility] #[id number]. 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 Advised pt to try interventions recommended by nurse this AM. Pt reports intermittent episodes of dizziness. Pt reports eating twice daily and not having breaks to eat. Educated pt on frequent meals and snacks, increasing fluid intake, and taking breaks as needed. Pt given strict er warnings if symptoms worsen. Advised pt no need to come to appointment on 03/24/25, pt to continue interventions. Pt verbalized understanding. Maryam Addison RN 03/23/25 4:13 PM [facility] 2025-03-23 11:14:33 Pt in clinic c/o right breast itching and intermittent pulsating pain (1-7) to nipple with minimal clear discharge x 2 days. Pt states she does not have redness, visible rash, lumps or any fever to right breast. Discussed symptoms with provider Claritza. Instructed patient on comfort measures, supportive bra, and safe medication list provided and reviewed with patient. Strict ED warnings given. Pt verbalized understanding. MELISSA MARIA RN 03/23/2025 11:17 AM Melissa Maria RN [facility] 2025-03-09 15:46:32 Called pt, pt reports sore on left bicep where nexplanon removed. Denies s/s of infection. Pt reports intermiitent pain 03/17. 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 Advised pt should be following work restrictions. Pt denies taking any pain meds. Educated on otc medications and work restrictions. Advised to rest muscle and try light compression. Advised injury could be from heavy lifting. Strict er warnings given. Verbalized understanding. Maryam Addison RN 03/09/25 3:55 PM [facility] 2025-03-09 15:07:24 Chung Sue is a 29 year old female Pt is calling stating she is having pain in there arm where her bc was taken out. Pain started last week and has gotten worse. Said its bad when her muscle flexes. Please call [phone] (home) Oumou Paulino [facility] 2025-02-22 08:37:25 Patient wanted to know if she could drive herself after her procedure tomorrow. Informed patient she could drive after procedure, pt stated she will bring her so he can drive her after. Rosa Elena Magallanes LVN [facility] 2025-02-22 08:13:22 Chung Sue is a 29 year old female Pt is calling requesting to speak with a nurse to discuss nexplanon removal procedure. Please contact pt at [phone]. Pt is 16wks . Jorge Negro [facility] 2025-02-18 10:48:00 Pt discharged with diagnosis of Abdominal pain affecting . Printed and verbal instructions reviewed with and given to Pt and spuse. Prescriptions given x 1. Pt verbalized understanding of teaching, prescribed Macrobid, and recommended follow-up. Denies questions or concerns at this time. Pt ambulatory at discharge. Appears in no apparent distress. No ataxia noted. Accompanied by spouse. T Linda Mota RN [facility] 2025-02-18 10:32:14 NS bolus completed. Pt tolerated well. [facility] 2025-02-18 10:04:29 D/C pending IV fluids completion [facility] 2025-02-18 09:16:03 Pt was in the restroom to provide UA and came to her bay. Pt returned to the bay and confirmed was at bedside. T [facility] 2025-02-18 08:20:04 [place] ems states: "Pt started having abdominal pain last night. She is 15 weeks . This is her second . She did have some bleeding last month and they diagnosed her with placenta previa. Her bgl was 95" G 2 P 1 A 0 OB: [facility]- [facility]. First was natural. Denies bleeding at this time. Nohemy Nelson RN [facility] - Health 2025-02-18 08:19:00 [facility] Emergency Department Note Patient Name: Chung Seu Date of : 1995 29 year old female Treatment Room: TX2 Primary Care Physician: PATIENT DOES NOT HAVE A PCP Patient Escorted by: Self [9] Mode of Arrival: EMS - [facility] [69] EMS Treatment Prior to ED Arrival: ALLERGIST/MD treatment: None Travel and Exposure Screening: Symptoms Does patient have any of these symptoms?: (not recorded) Exposure Screening Has patient had contact with someone with a communicable disease in the last month?: (not recorded) Diseases exposed to:: (not recorded) Is Patient ?: (not recorded) Exposure Date: (not recorded) Chief Complaint: Chief Complaint Patient presents with Abdominal Pain 15 weeks History of Present Illness: History of Present Illness The patient presents from home with EMS for eval for abdominal pain while . She states her LMP was in October and she is 2 para 1-0-0-1. She does follow with [facility] here at [facility]. She denies any vaginal bleeding. She states she was at work today when her discomfort in her abdomen started. No dysuria or hematuria. No nausea or vomiting. She is feeling the baby move. Her next appoint with OB is next month. No history of high blood pressure or diabetes. No prior abdominal surgeries. Here for evaluation. Past Medical History/Immunizations: Past Medical History: Diagnosis Date Attention deficit disorder with hyperactivity(314.01) 12/27/2010 Bipolar disorder, unspecified 2016 not on meds, stopped medications after a few months in 2017 Depression 2017 never on meds, reports mood stable Tetanus received in last 5 years: Yes Childhood immunizations: Up-to-date Allergies: Allergies Allergen Reactions Nkda [No Known Drug Allergies] Past Social History: Tobacco Use Never smoked or used smokeless tobacco. Alcohol Use Not Currently. Drug Use Not Currently. Comments: THC last used 01/03/2025 Sexual Activity Sexually active; Partners: Male; Control/Protection: Implant. Comments: LSI 02/04/2025 Past Surgical History: History reviewed. No pertinent surgical history. Review of Systems: Review of Systems Constitutional: Negative for chills and fever. Respiratory: Negative for cough. Cardiovascular: Negative for chest pain. Gastrointestinal: Positive for abdominal pain. Negative for nausea and vomiting. Genitourinary: Negative for dysuria and vaginal bleeding. Musculoskeletal: Negative for arthralgias, neck pain and neck stiffness. Skin: Negative for wound. Neurological: Negative for dizziness. Psychiatric/Behavioral: Negative for agitation. Endocrine: Negative for goiter. Physical Exam: Physical Exam ED Triage Vitals [02/18/25 0821] Weight 68.9 kg (152 lb) Actual or estimated Estimated by patient/family report Height 1.499 m (4' 11") BP 97/76 Pulse 87 Resp 16 Temp 36.7 ?C (98 ?F) Temp source Oral SpO2 97 % Measured on Room air Physical Exam Vitals and nursing note reviewed. Constitutional: Appearance: Normal appearance. She is normal weight. HENT: Head: Normocephalic and atraumatic. Mouth/Throat: Mouth: Mucous membranes are dry. Cardiovascular: Rate and Rhythm: Normal rate and regular rhythm. Pulses: Normal pulses. Pulmonary: Effort: Pulmonary effort is normal. No respiratory distress. Abdominal: General: There is no distension. Palpations: Abdomen is soft. There is no mass. Tenderness: There is no abdominal tenderness. There is no guarding or rebound. Hernia: No hernia is present. Musculoskeletal: General: Normal range of motion. Cervical back: Normal range of motion and neck supple. Skin: General: Skin is warm and dry. Neurological: General: No focal deficit present. Mental Status: She is alert and oriented to person, place, and time. Radiology: No orders to display Lab Results: Lab Results URINALYSIS - Abnormal Result Value Ref Range APPEARANCE Clear Clear COLOR Yellow Yellow PH 7.0 4.8 - 8.0 SP GRAVITY 1.008 1.003 - 1.030 GLU U QUAL Normal Normal BLOOD Negative Negative KETONES Negative Negative PROTEIN Negative Negative UROBILIN Normal Normal BILIRUBIN Negative Negative NITRITE Positive (*) Negative LEUK TRACIE Negative Negative RBC/HPF 2 0 - 3 HPF WBC/HPF 4 0 - 5 HPF BACTERIA Few (*) Negative SQ EPITH 2 HPF CBC WITH DIFF - Abnormal WBC 9.07 4.30 - 11.10 10*3/?L RBC 3.96 3.93 - 5.25 10*6/?L HGB 11.8 11.6 - 15.0 g/dL HCT 35.6 (*) 35.7 - 45.2 % MCV 89.9 80.6 - 95.5 fL MCH 29.8 25.9 - 32.8 pg MCHC 33.1 31.6 - 35.1 g/dL RDW-SD 42.5 39.0 - 49.9 fL RDW-CV 12.9 12.0 - 15.5 % PLT 355 166 - 358 10*3/?L MPV 9.4 (*) 9.5 - 12.9 fL NRBC/100 WBC 0.0 0.0 - 10.0 /100 WBCs NRBC x10 3 <0.01 10*3/?L GRAN MAT (NEUT) % 65.2 % IMM GRAN % 0.40 % LYMPH % 25.2 % MONO % 6.2 % EOS % 2.6 % BASO % 0.4 % GRAN MAT x10 3 (ANC) 5.90 1.88 - 7.09 10*3/uL IMM GRAN x10 3 0.04 0.00 - 0.06 10*3/uL LYMPH x10 3 2.29 1.32 - 3.29 10*3/uL MONO x10 3 0.56 0.33 - 0.92 10*3/uL EOS x10 3 0.24 0.03 - 0.39 10*3/uL BASO x10 3 0.04 0.01 - 0.07 10*3/uL COMP. METABOLIC PANEL (95686) - Abnormal NA 134 (*) 135 - 145 mmol/L K 3.5 3.5 - 5.0 mmol/L CL 105 98 - 108 mmol/L CO2 TOTAL 21 (*) 23 - 31 mmol/L AGAP 8 2 - 16 BUN 5 (*) 7 - 23 mg/dL GLUCOSE 88 70 - 110 mg/dL CREATININE 0.49 (*) 0.50 - 1.04 mg/dL TOTAL BILI 0.5 0.1 - 1.1 mg/dL CALCIUM 8.8 8.6 - 10.6 mg/dL T PROTEIN 6.9 6.3 - 8.2 g/dL ALBUMIN 3.7 3.5 - 5.0 g/dL ALK PHOS 53 34 - 122 U/L ALTv 11 5 - 35 U/L AST(SGOT) 14 13 - 40 U/L eGFR 132.7 mL/min/1.73m2 EKG: If EKG completed, see Procedure Note. Orders and Treatments: Orders Placed This Encounter Procedures POCUS OB US ABD Limited URINALYSIS CBC WITH DIFF COMP. METABOLIC PANEL (43548) Orders Placed This Encounter Medications NaCl 0.9% (NS) bolus infusion 1,000 mL Nitrofurantoin&Nit. Macrocryst (MACROBID) 100 mg capsule 100 mg Nitrofurantoin&Nit. Macrocryst 100 mg capsule First Provider Eval: ED Events Date/Time Event User Comments 02/18/25 0820 Medical Screening Begins PRIYA BLUM DO -- 02/18/25 08 First Provider Evaluation PRIYA BLUM DO -- ED COURSE Diagnosis/Impression as of 02/18/25 1000 Abdominal pain affecting Acute cystitis without hematuria Results Procedures: Procedures MDM: Assessment & Plan Medical Decision Making The patient presents from home with EMS for eval for abdominal pain while . She states her LMP was in October and she is 2 para 1-0-0-1. She does follow with [facility] here at [facility]. She denies any vaginal bleeding. She states she was at work today when her discomfort in her abdomen started. No dysuria or hematuria. No nausea or vomiting. She is feeling the baby move. Her next appoint with OB is next month. No history of high blood pressure or diabetes. No prior abdominal surgeries. Vital signs are stable in the ER. Her abdomen is soft and nontender. A limited transabdominal ultrasound shows a single intrauterine with good cardiac activity. Her ABO Rh from previous visit is a positive. Will give the patient IV fluids and check laboratory studies as well as urinalysis. Anticipate discharge home later. 1000 - the patient is doing well here in the [facility]. Her abdomen remains soft and not tender. Labs are unremarkable. UA shows infection. She was given the first dose of antibiotics here in the [facility]. Recommend she drink plenty of fluids to stay well hydrated. 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 Problems Addressed: Abdominal pain affecting : acute illness or injury Acute cystitis without hematuria: acute illness or injury Amount and/or Complexity of Data Reviewed Labs: ordered. Decision-making details documented in ED Course. Radiology: Decision-making details documented in ED Course. Risk OTC drugs. Prescription drug management. Flowsheet Documentation: Scoring Tools: No data recorded Disposition/Condition: ED Disposition ED Disposition Discharge Condition Stable Comment -- Discharge Medications: Patient's Medications START taking these medications NITROFURANTOIN&NIT. MACROCRYST 100 MG CAPSULE Take 1 capsule by mouth in the morning and 1 capsule in the evening. Do all this for 7 days. CONTINUE taking these medications which have NOT CHANGED No medications on file START taking Modified Medications as Prescribed No medications on file STOP taking these medications No medications on file Follow-up: Electronically signed by: Priya Blum DO 02/18/25 1000 [facility] 2020-07-26 23:40:00 [facility] ([facility]) EMERGENCY PROVIDER REPORT REPORT#:[id number] REPORT STATUS: Signed DATE:07/26/20 TIME: 2339 PATIENT: CHUNG SUE UNIT #: [id number] ROOM/BED: AGE: 24 SEX: F PCP PHYS: No Primary or Family Physician SERVICE AUTHOR: Senait Kowalski MD * ALL edits or amendments must be made on the electronic/computer document * HPI-General Illness Free Text HPI Notes Free Text HPI Notes 24-year-old female presents emergency department complaints of shortness of breath, headache and recent exposure to a family member with COVID-19 symptoms. She denies nausea, vomiting, fever, chills, chest pain, abdominal pain, dysuria, hemoptysis or dizziness. General Initial Greet Date/Time 07/26/20 555 Presentation Chief Complaint __ (covid-exposure ) Review of Systems ROS Statements All systems rev neg except as marked. Review of Systems Neurologic Reports: Headache. Past Medical History - Adult Stated Complaint SHORTNESS OF BREATH, HEADACHE Allergies Coded Allergies: adhesive tape (Mild, RASH 06/20/19) folic acid (Mild, RASH 06/20/19) Home Medications Reported Medications No Known Home Medications Calculated suicide risk level: No risk Past Medical History: Reports: Depression/mood disorder. Additional Medical History bipolar disorder Anxiety. Alcohol Use Alcohol use (occasional) Smoking status for patients 13 years old or older: Never Smoker Physical Exam Vital Signs Vital Signs First Documented: Result Date Time Pulse Ox 97 07/26 2301 B/P 105/72 07/26 2301 B/P Mean 83 07/26 2301 O2 Delivery Room air 07/26 2301 Temp 36.5 07/26 2301 Pulse 87 07/26 2301 Resp 18 07/26 2301 Last Documented: Result Date Time Pulse Ox 97 07/26 2301 B/P 105/72 07/26 2301 B/P Mean 83 07/26 2301 O2 Delivery Room air 07/26 2301 Temp 36.5 07/26 2301 Pulse 87 07/26 2301 Resp 18 07/26 2301 Review of Vital Signs Reviewed, Vital signs normal Physical Exam General/Const General/Const Awake, Alert, Well appearing MS Head Head Atraumatic, Normocephalic Eyes Eyes Atraumatic, PERRL, EOMI Ears/Nose/Throat Ears/Nose/Throat Airway patent, Mucous membranes moist, Pharynx NL MS Neck Neck Supple, No meningismus, Full range of motion, No swelling, Non-tender, No masses Resp/Chest Respiratory/Chest Breath sounds NL, Breath sounds = bilat, No respiratory distress, No rales, No rhonchi, No wheezing Cardiovascular Cardiovascular Heart rate NL, Regular rhythm, Heart sounds NL, Cap refill not delayed, Peripheral circulation NL Abdomen/GI Abdomen/GI Soft, Non-tender, No guarding, No rebound MS Back Back Inspection NL, Painless range of motion, Non-tender, No CVA tenderness Lymphatic Lymphatic No gross adenopathy MS Upper Extrem Upper Extremity/MS Inspection NL, No swelling, Non-tender, No erythema, No deformity, Neurologic intact, Vascular intact, No clubbing/cyanosis MS Wrist/Hand Wrist/Hand Inspection NL, No swelling, No erythema, Non-tender, No deformity, Neurologic intact, Vascular intact, No clubbing/cyanosis MS Lower Extrem Lower Ext/Pelvis/MS Inspection NL, No swelling, Non-tender, No erythema, No deformity, Neurologic intact, Vascular intact, No edema MS Ankle/Foot Ankle/Foot Inspection NL, No swelling, No erythema, Non-tender, No deformity, Neurologic intact, Vascular intact, No edema Skin Skin Color NL, Warm, Dry, Turgor NL Neurologic Neurologic Oriented X3, Speech NL, No motor deficits, No sensory deficits Psychiatric Psychiatric Affect NL, Mood NL, Thought content NL Interpretation Diagnostics Lab Results Interpretation Lab Statement Laboratory studies reviewed and considered in the medical decision-making. Re-Evaluation MDM Free Text MDM Notes Free Text MDM Notes 24-year-old female presents with headache COVID-19 testing request DDx includes not limited to viral syndrome, wellness visit, COVID-19 infection, URI Re-Evaluation/Progress #1 Text/Dict Note Labs are unremarkable. The patient was informed of results, provided strict return precautions and instructed to follow-up primary care. Time of Re-Eval 2346 Re-Eval Status Improved Patient Discharge Departure Vital Signs/Condition Vital Signs First Documented: Result Date Time Pulse Ox 97 07/26 2301 B/P 105/72 07/26 2301 B/P Mean 83 07/26 2301 O2 Delivery Room air 07/26 230 Temp 36.5 07/26 2301 Pulse 87 07/26 2301 Resp 18 07/26 2301 Last Documented: Result Date Time Pulse Ox 97 07/26 2301 B/P 105/72 07/26 2301 B/P Mean 83 07/26 2301 O2 Delivery Room air 07/26 230 Temp 36.5 07/26 2301 Pulse 87 07/26 2301 Resp 18 07/26 2301 All vital signs available at the time of this entry have been reviewed. Condition Stable Clinical Impression Clinical Impression Primary Impression: Exposure to COVID-19 virus Time of Impression 2347 Disposition Decision Discharge )( Discharged to Home Yes )( Time 2347 )( Date 07/26/20 Discharge/Care Plan (Auto) Prescriptions Current Visit Scripts No Known Home Medications at 2348 RPT #:[id number] END OF REPORT [facility] 2019-06-20 15:42:00 [facility] ([facility]) EMERGENCY PROVIDER REPORT REPORT#:[id number] REPORT STATUS: Signed DATE:06/20/19 TIME: 1541 PATIENT: CHUNG SUE UNIT #: [id number] ROOM/BED: AGE: 23 SEX: F PCP PHYS: No Primary or Family Physician SERVICE AUTHOR: Jose Elder MD * ALL edits or amendments must be made on the electronic/computer document * HPI-Back Pain Under 40 General Confirmed Patient Yes Date/Time Seen by Provider 06/20/19 1533 Presentation Chief Complaint Pain, flank 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 Yes Onset Occurred Yesterday Symptom Duration Since onset Progression since Onset Gradually worsening Caused by No trauma by history Location Flank L Quality Painful Radiation Does not radiate. Migration/Movement None Severity: Onset Moderate Severity: Current Pain level 10 out of 10 Associated with Denies: Dysuria. Associated Other Pt denies other symptoms Exacerbated by Nothing Relieved by Nothing Free Text HPI Notes Free Text HPI Notes EMS presents 23 y/o F w/ PMHx of bipolar disorder to the ED c/o L flank pain onset yesterday. Pt states pain exacerbated with movement and rates pain currently 10/10. Pt denies dysuria or urinary frequency. Pt notes that pain began last night and has gradually worsened that is difficult for her to walk. LMP: currently. Portions of this section were scribed by Heather Blank on 06/20/19 at 1742 Review of Systems ROS Statements All systems rev neg except as marked. Basic Review of Systems Basic ROS EYES: No redness, ENT: No sore throat, SKIN: No rash, PSYCH: NL thought content Focused Review of Systems Constitutional Denies: Chills, Fever. Respiratory Denies: Shortness of breath, Wheezing. Cardiovascular Denies: Chest pain, Dyspnea on exertion. GI Denies: Abdominal pain, Nausea, Vomiting. Female Reports: Flank pain (L side). Denies: Dysuria, Urinary frequency. Musculoskeletal Denies: Extremity pain, Extremity swelling. Neurologic Denies: Headache, Lightheaded. Additional Review of Systems Eyes Denies: Photophobia, Redness bilat. Ears/Nose/Throat Denies: Nasal congestion, Sore throat. Portions of this section were scribed by Heather Blank on 06/20/19 at 1557 Past Medical History - Adult Stated Complaint L FLANK PAIN Allergies Coded Allergies: adhesive tape (Mild, RASH 06/20/19) folic acid (Mild, RASH 06/20/19) Home Medications Reported Medications No Known Home Medications Review of Nursing Notes Rev avail, and agree Past Medical History: Reports: Depression/mood disorder. Additional Medical History bipolar disorder Anxiety. Alcohol Use Alcohol use (occasional) Smoking status for patients 13 years old or older: Unknown,if ever smoked Portions of this section were scribed by Heather Blank on 06/20/19 at 1557 Physical Exam Vital Signs Vital Signs First Documented: Result Date Time Pulse Ox 98 06/20 1533 B/P 118/71 06/20 1533 B/P Mean 86 06/20 1533 O2 Delivery Room air 06/20 1533 Temp 36.5 06/20 1533 Pulse 91 06/20 1533 Resp 18 06/20 1533 Last Documented: Result Date Time Pulse Ox 99 06/20 1749 B/P 100/61 06/20 1749 B/P Mean 74 06/20 1749 O2 Delivery Room air 06/20 1749 Temp 36.5 06/20 1749 Pulse 82 06/20 1749 Resp 18 06/20 1749 Review of Vital Signs Reviewed Basic Physical Exam Basic PE HEAD: Atraumatic/NC, EYES: PERRL, conj clear, ENT: Membranes moist, NECK: Supple, RESP: No resp distress, CV: Reg rate rhythm, ABD: Soft/non- tender, EXT: No gross abnormality, SKIN: No rashes, warm/dry, PSYCH: NL thought content Focused PE General/Const General/Const Awake, Alert, Well developed, Cooperative Behavior Anxious, Tearful. MS Neck Neck Supple, Full range of motion, No swelling, Non-tender Resp/Chest Respiratory/Chest Breath sounds NL, Breath sounds = bilat, No respiratory distress, No wheezing Cardiovascular Cardiovascular Heart rate NL, Regular rhythm, Heart sounds NL Abdomen/GI Abdomen/GI Soft, Non-tender, No guarding, No distention MS Back Back Inspection NL, Full range of motion Text/Dict Notes L CVA tenderness MS Lower Extrem Lower Ext/Pelvis/MS Inspection NL, Full range of motion, No swelling, Non- tender Neurologic Neurologic Oriented X3, Speech NL, No motor deficits, No sensory deficits Additional PE Eyes Eyes PERRL, EOMI, Conjunctiva NL Ears/Nose/Throat Ears/Nose/Throat Airway patent, Mucous membranes moist, Pharynx NL MS Upper Extrem Upper Extremity/MS Inspection NL, Full range of motion, No swelling, Non- tender Skin Skin Color NL, No rash, Warm, Dry, Intact Portions of this section were scribed by Heather Blank on 06/20/19 at 1557 Interpretation Diagnostics Lab Results Interpretation Results Laboratory Tests 06/20/19 1546: [Embedded Image Not Available] Laboratory Tests: 06/20 06/20 1546 1539 Chemistry Sodium (134.0 - 147.0 mmol/l) 138 Potassium (3.6 - 5.2 mmol/L) 3.8 Chloride (98.0 - 107.0 mmol/l) 102 Carbon Dioxide (21.0 - 33.0 mmol/l) 26.9 Anion Gap (0 - 20) 12.9 BUN (7.0 - 18.0 mg/dl) 8 Creatinine (0.60 - 1.30 mg/dL) 0.72 Est GFR ( Amer) (133 - 145 mL/min) 131 L Est GFR (Non-Af Amer) (110 - 120 mL/min) 108 L Glucose (70.0 - 110.0 mg/dl) 91 Calcium (8.0 - 10.5 mg/dl) 9.0 Total Bilirubin (0.0 - 1.0 mg/dl) 0.5 Direct Bilirubin (0.0 - 0.3 mg/dl) 0.1 AST (15.0 - 37.0 Units/L) 14 L ALT (12.0 - 78.0 Units/L) 17 Total Alk Phosphatase (50.0 - 136.0 Units/L) 63 Total Protein (6.0 - 8.1 GM/DL) 7.9 Albumin (3.2 - 4.7 gm/dL) 3.8 Lipase (65.0 - 230.0 Units/L) 82 Hematology WBC (4.5 - 11.0 K/mm3) 11.3 H RBC (3.80 - 5.20 M/mm3) 4.33 Hgb (12.0 - 16.0 gm/dL) 12.8 Hct (36.0 - 48.0 %) 39.5 MCV (82.0 - 99.0 UM3) 91.2 MCH (25.5 - 32.5 UUG) 29.6 MCHC (29.0 - 35.5 gm/dL) 32.4 RDW (11.5 - 15.0 %) 13.1 Plt Count (150 - 400 K/mm3) 306 MPV (7.4 - 10.4 fl) 9.9 Neut % (Auto) (49.0 - 76.0 %) 68.5 Lymph % (Auto) (23.0 - 38.0 %) 20.3 L Lander % (Auto) (1.0 - 10.0 %) 8.8 Eos % (Auto) (1.0 - 5.0 %) 1.5 Baso % (Auto) (0.0 - 1.0 %) 0.6 Neut # (Auto) (2.4 - 6.3 K/mm3) 7.8 H Lymph # (Auto) (1.2 - 4.0 K/mm3) 2.3 Lander # (Auto) (0.0 - 0.6 K/mm3) 1.0 H Eos # (Auto) (0.0 - 0.7 K/MM3) 0.2 Baso # (Auto) (0.0 - 0.2 K/mm3) 0.1 Immature Gran % (0.0 - 0.4 %) 0.3 Immature Gran # (0.00 - 0.07 x10 3/uL) 0.03 Urines Urine Color LT YELLOW Urine Appearance HAZY Urine pH (5.0 - 9.0) 6.5 Ur Specific Brady (1.000 - 1.030) 1.010 Urine Protein (NEGATIVE mg/dl) 30 H Urine Glucose (UA) (NORMAL mg/dl) NORMAL Urine Ketones (NEGATIVE mg/dl) NEGATIVE Urine Blood (NEGATIVE Domenico/micL) 50 Domenico/micL H Urine Nitrite (NEGATIVE) NEGATIVE Urine Bilirubin (NEGATIVE mg/dL) NEGATIVE Urine Urobilinogen (NORMAL mg/dl) NORMAL Ur Leukocyte Esterase (NEGATIVE Jason/micL) 100 Jason/micL H Urine RBC (0 - 3 RBC/HPF) 5-10 H Urine WBC (NONE WBC/HPF) 10-20 H Ur Epithelial Cells (0 - 3 EPI/HPF) 2-5 H Ur Renal Epithelial Cell FEW Urine Bacteria (NONE) FEW Urine Mucus 2+ Urine HCG, Qual (NEGATIVE) NEGATIVE Microbiology: Date/Time Procedure - Status Source Growth 06/20 155 Urine Culture - RECD URINE Recent Impressions: CAT SCAN - CT ABD PELVIS W/CONT 06/20 1717 Report Impression - Status: SIGNED Entered: 06/20/2019 1738 IMPRESSION: 1. 4.2 cm right adnexal cystic structure with subtle rim enhancement, likely a benign-type corpus luteum cyst associated with the right ovary. No significant pelvic fluid collection or solid mass seen. Normal uterus and left ovary. 2. Normal appendix. 3. Normal kidneys bilaterally without evidence of hydronephrosis or renal calculi. No perinephric fat stranding. Impression By: Bernabe NEGRETE M.D. Lab Statement Laboratory studies reviewed and considered in the medical decision-making. Point of Care Testing Urinalysis Interpretation UA reviewed Pulse Oximetry Pulse Ox % 98 On: Room air Interpretation Interpreted by me, Pulse oximetry normal Time 1533 Test Negative - urine HCG Portions of this section were scribed by Heather Blank on 06/20/19 at 1742 Re-Evaluation MDM Re-Evaluation/Progress Re-Evaluation/Progress Time of Re-Eval 1739 Re-Eval Status Improved ED Course Medication(s) Ordered Medication(s) Ordered: Anti-Infective Agents Sig/Tara Start time Last Medication Dose Route Stop Time Status Admin Ceftriaxone Sodium 1,000 MG X1ED STA 06/20 1609 DC 06/20 Sodium Chloride 10 ML IV 06/20 1611 1613 Central Nervous System Agents Sig/Tara Start time Last Medication Dose Route Stop Time Status Admin Morphine Sulfate 4 MG X1ED STA 06/20 1540 DC 06/20 IV 06/20 1541 1552 Diagnostic Agents Sig/Tara Start time Last Medication Dose Route Stop Time Status Admin Iopamidol 0 .STK-MED ONE 06/20 1707 DC 06/20 IV 1725 Gastrointestinal Drugs Sig/Tara Start time Last Medication Dose Route Stop Time Status Admin Ondansetron HCl 4 MG X1ED STA 06/20 1540 DC 06/20 IV 06/20 1541 1552 Portions of this section were scribed by Heather Blank on 06/20/19 at 1742 Patient Discharge Departure Vital Signs/Condition Vital Signs First Documented: Result Date Time Pulse Ox 98 06/20 153 B/P 118/71 06/20 1533 B/P Mean 86 06/20 153 O2 Delivery Room air 06/20 153 Temp 36.5 06/20 1533 Pulse 91 06/20 1533 Resp 18 06/20 1533 Last Documented: Result Date Time Pulse Ox 99 06/20 1749 B/P 100/61 06/20 1749 B/P Mean 74 06/20 1749 O2 Delivery Room air 06/20 1749 Temp 36.5 06/20 1749 Pulse 82 06/20 1749 Resp 18 06/20 1749 All vital signs available at the time of this entry have been reviewed. Condition Improved Clinical Impression Clinical Impression Primary Impression: UTI (urinary tract infection) Disposition Decision Discharge )( Discharged to Home Yes )( Time 1740 )( Date 06/20/19 Discharge/Care Plan Counseled Regarding Diagnosis, Lab results Prescriptions Tramadol, Naproxen, Keflex Prescriptions Reviewed Risks, Benefits Discharge Note I have spoken with the patient and/or caregivers. I have explained the patient's condition, diagnoses and treatment plan based on the information available to me at this time. I have answered the patient's and/or caregiver's questions and addressed any concerns. The patient and/or caregivers have as good an understanding of the patient's diagnosis, condition and treatment plan as can be expected at this point. The vital signs have been stable. The patient's condition is stable and appropriate for discharge from the emergency department. The patient will pursue further outpatient evaluation with the primary care physician or other designated or consulting physician as outlined in the discharge instructions. The patient and/or caregivers are agreeable to this plan of care and follow-up instructions have been explained in detail. The patient and/or caregivers have received these instructions in written format and have expressed an understanding of the discharge instructions. The patient and/or caregivers are aware that any significant change in condition or worsening of symptoms should prompt an immediate return to this or the closest emergency department or a call to 911. Quality Measures Smoking Cessation Screened, non user Tobacco Screening/Cessation 18 years or older, Denies tobacco use Supervising Physician Note Scribe Statement Heather Blank, 06/20/19 6114, scribing for and in the presence of Dr. Elder. Signed By: Heather Blank, 06/20/19 346 Provider Scribed Statement I personally performed the services described in this documentation and reviewed the documentation that was dictated to the scribe(s) in my presence, and it accurately records my words and actions. Jose Elder, 06/20/19 Portions of this section were scribed by Heather Blank on 06/20/19 at 1742 at 7190 RPT #:[id number] END OF REPORT [facility] 2019-04-28 09:09:00 [facility] ([facility]) EMERGENCY PROVIDER REPORT REPORT#:[id number] REPORT STATUS: Signed DATE:04/28/19 TIME: 908 PATIENT: CHUNG SUE UNIT #: [id number] ROOM/BED: AGE: 23 SEX: F PCP PHYS: No Primary or Family Physician SERVICE AUTHOR: Taj Gonzalez MD * ALL edits or amendments must be made on the electronic/computer document * HPI-Abd Pain F Under 40 General Confirmed Patient Yes Initial Greet Date/Time 04/28/19 0829 Presentation Chief Complaint Abdominal pain Hx Obtained From Patient Sudden in Onset? Yes Onset Occurred Hours ago (7.5) Symptom Duration Since onset Progression since Onset Intermittent Location RUQ Quality Painful Radiation Does not radiate. Migration/Movement None Severity: Onset Moderate Severity: Current Moderate Associated with Denies: Chills, Diarrhea, Dysuria, Fever, Nausea, Vomiting. 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 Pt states that her pain is intermittent. Pt denies N/V/D, fever, chills, or dysuria. Denies Hx of cholelithiasis. Portions of this section were scribed by Gris Godfrey on 04/28/19 at 1239 Risk-Abd Pain F Under 40 )( Ectopic Risk factors reviewed Portions of this section were scribed by Gris Godfrey on 04/28/19 at 1236 Review of Systems ROS Statements All systems rev neg except as marked. Focused Review of Systems Constitutional Denies: Chills, Fever. Respiratory Denies: Shortness of breath, Wheezing. Cardiovascular Denies: Chest pain, Palpitations. GI Reports: Abdominal pain (RUQ). Denies: Diarrhea, Nausea, Vomiting. Female Denies: Dysuria, Hematuria. Musculoskeletal Denies: Back pain, Neck pain. Additional Review of Systems Eyes Denies: Blurred bilat, Photophobia. Ears/Nose/Throat Denies: Nasal congestion, Sore throat. Skin Denies: Rash, Swelling. Neurologic Denies: Generalized weakness, Headache. Portions of this section were scribed by Gris Godfrey on 04/28/19 at 1236 Past Medical History - Adult Stated Complaint ABDOMINAL PAIN Allergies Coded Allergies: adhesive tape (Mild, RASH 04/28/19) folic acid (Mild, RASH 04/28/19) Home Medications Reported Medications No Known Home Medications Review of Nursing Notes Rev avail, and agree Pt reports no significant: Past surgical history, Family history Past Medical History: Reports: Depression/mood disorder. Additional Medical History bipolar disorder Anxiety. Alcohol Use Denies EtOH use Smoking status for patients 13 years old or older: Never Smoker Portions of this section were scribed by Gris Godfrey on 04/28/19 at 0914 Physical Exam Vital Signs Vital Signs First Documented: Result Date Time Pulse Ox 96 04/28 0830 B/P 102/65 04/28 0830 B/P Mean 77 04/28 0830 O2 Delivery Room air 04/28 0830 Temp 36.6 04/28 0830 Pulse 89 04/28 0830 Resp 18 04/28 0830 Last Documented: Result Date Time Pulse Ox 1 04/28 1225 B/P 96/66 04/28 1225 B/P Mean 76 04/28 1225 O2 Delivery Room air 04/28 1225 Temp 36.7 04/28 1225 Pulse 84 04/28 1225 Resp 20 04/28 1225 Review of Vital Signs Reviewed, Vital signs abnormal (Low BP) Focused PE General/Const General/Const Awake, Alert, Cooperative Ears/Nose/Throat Ears/Nose/Throat Airway patent, Mucous membranes moist, Pharynx NL Resp/Chest Respiratory/Chest Breath sounds NL, Breath sounds = bilat, No respiratory distress, No wheezing Cardiovascular Cardiovascular Heart rate NL, Regular rhythm, Heart sounds NL, Pulses = bilaterally Abdomen/GI Abdomen/GI Soft, No guarding, No rebound, BS normoactive, No distention Text/Dict Notes Pt has RUQ tenderness on deep palpation. MS Back Back Full range of motion, Painless range of motion Skin Skin Color NL, No rash, Warm, Dry, Intact Neurologic Neurologic Oriented X3, Speech NL, No motor deficits, No sensory deficits, CN II - XII intact Portions of this section were scribed by Gris Godfrey on 04/28/19 at 1236 Interpretation Diagnostics Lab Results Interpretation Results Laboratory Tests 04/28/19 0844: [Embedded Image Not Available] Laboratory Tests: 04/28 04/28 0845 0844 Chemistry Sodium (134.0 - 147.0 mmol/l) 139 Potassium (3.6 - 5.2 mmol/L) 3.2 L Chloride (98.0 - 107.0 mmol/l) 104 Carbon Dioxide (21.0 - 33.0 mmol/l) 25.3 Anion Gap (0 - 20) 12.9 BUN (7.0 - 18.0 mg/dl) 10 Creatinine (0.60 - 1.30 mg/dL) 0.61 Est GFR ( Amer) (133 - 145 mL/min) 159 H Est GFR (Non-Af Amer) (110 - 120 mL/min) 131 H Glucose (70.0 - 110.0 mg/dl) 84 Calcium (8.0 - 10.5 mg/dl) 8.6 Total Bilirubin (0.0 - 1.0 mg/dl) 1.3 H Direct Bilirubin (0.0 - 0.3 mg/dl) 0.2 AST (15.0 - 37.0 Units/L) 13 L ALT (12.0 - 78.0 Units/L) 18 Total Alk Phosphatase (50.0 - 136.0 Units/L) 60 Total Protein (6.4 - 8.2 gm/dL) 7.3 Albumin (3.2 - 4.7 gm/dl) 3.6 Lipase (65.0 - 230.0 Units/L) 67 Serum , Qual (NEGATIVE) NEGATIVE Hematology WBC (4.5 - 11.0 K/mm3) 11.8 H RBC (3.80 - 5.20 M/mm3) 4.16 Hgb (12.0 - 16.0 gm/dL) 12.5 Hct (36.0 - 48.0 %) 37.6 MCV (82.0 - 99.0 UM3) 90.4 MCH (25.5 - 32.5 UUG) 30.0 MCHC (29.0 - 35.5 gm/dL) 33.2 RDW (11.5 - 15.0 %) 12.7 Plt Count (150 - 400 K/mm3) 248 MPV (7.4 - 10.4 fl) 10.4 Neut % (Auto) (49.0 - 76.0 %) 73.8 Lymph % (Auto) (23.0 - 38.0 %) 17.8 L Lander % (Auto) (1.0 - 10.0 %) 7.1 Eos % (Auto) (1.0 - 5.0 %) 0.6 L Baso % (Auto) (0.0 - 1.0 %) 0.4 Neut # (Auto) (2.4 - 6.3 K/mm3) 8.7 H Lymph # (Auto) (1.2 - 4.0 K/mm3) 2.1 Lander # (Auto) (0.0 - 0.6 K/mm3) 0.8 H Eos # (Auto) (0.0 - 0.7 K/MM3) 0.1 Baso # (Auto) (0.0 - 0.2 K/mm3) 0.1 Immature Gran % (0.0 - 0.4 %) 0.3 Immature Gran # (0.00 - 0.07 x10 3/uL) 0.03 Toxicology Urine Opiates Screen (NEGATIVE) NEGATIVE Urine Methadone Screen (NEGATIVE) NEGATIVE Urine Barbiturates (NEGATIVE) NEGATIVE Ur Phencyclidine Scrn (NEGATIVE) NEGATIVE Ur Amphetamines Screen (NEGATIVE) NEGATIVE U Benzodiazepines Scrn (NEGATIVE) NEGATIVE Urine Cocaine Screen (NEGATIVE) NEGATIVE Urine Cannabinoids (NEGATIVE) NEGATIVE Urines Urine Color YELLOW Urine Appearance CLEAR Urine pH (5.0 - 9.0) 6.5 Ur Specific Brady (1.000 - 1.030) 1.015 Urine Protein (NEGATIVE mg/dl) 15 mg/dl H Urine Glucose (UA) (NORMAL mg/dl) NORMAL Urine Ketones (NEGATIVE mg/dl) 5 mg/dl H Urine Blood (NEGATIVE Domenico/micL) 150 Domenico/micL H Urine Nitrite (NEGATIVE) NEGATIVE Urine Bilirubin (NEGATIVE mg/dL) NEGATIVE Urine Urobilinogen (NORMAL mg/dl) NORMAL Ur Leukocyte Esterase (NEGATIVE Jason/micL) NEGATIVE Urine RBC (0 - 3 RBC/HPF) 1-3 Urine WBC (NONE WBC/HPF) 4-9 H Ur Epithelial Cells (0 - 3 EPI/HPF) 2-5 H Amorphous Sediment (NONE) MOD Urine Bacteria (NONE) FEW Recent Impressions: CAT SCAN - CT ABD PELVIS W/CONT 04/28 0958 Report Impression - Status: SIGNED Entered: 04/28/2019 1009 IMPRESSION: Normal appendix and bowel loop pattern. Vague hypodensity in the posterior left lobe near the falciform ligament may need further assessment with sonography or MRI. Correlate with liver enzyme abnormalities. No obvious gallbladder abnormality acutely. Normal common bile duct Location: U19 Impression By: Carlee Gottlieb M.D. ULTRASOUND - US ABDOMEN LTD 04/28 1048 Report Impression - Status: SIGNED Entered: 04/28/2019 1145 Impression: Normal gallbladder appearance. No gallstones evident. Iso echogenic, very subtle non mass-like area in the posterior left lobe of the liver, suggesting benign findings. Location: U 19 Impression By: Carlee Gottlieb M.D. Lab Imaging Statement Laboratory radiographic studies reviewed and considered in the medical decision-making. Point of Care Testing Urinalysis Interpretation U/A reviewed Pulse Oximetry Pulse Ox % 96 On: Room air Interpretation Interpreted by hi, Pulse oximetry normal Time 0830 Test Negative - serum HCG Lab Studies Drug Screen/Level Drug Screen Interpretation Drug screen UR reviewed Radiography CT Abdomen/Pelvis Study type IV contrast Text/Dict Note IMPRESSION: Normal appendix and bowel loop pattern. Vague hypodensity in the posterior left lobe near the falciform ligament may need further assessment with sonography or MRI. Correlate with liver enzyme abnormalities. No obvious gallbladder abnormality acutely. Normal common bile duct Interpretation/Wet Read by Interpret - Radiologist Reviewed by ED physician Free Text I D Notes Free Text I D Notes Study Performed: US Abdomen LTD. Interpreted By: Radiologist. Reviewed By: ED Physician. Impression: Normal gallbladder appearance. No gallstones evident. Iso echogenic, very subtle non mass-like area in the posterior left lobe of the liver, suggesting benign findings. Portions of this section were scribed by Gris Godfrey on 04/28/19 at 1236 Re-Evaluation MDM )( Re-Evaluation/Progress #1 Text/Dict Note Pt denies N/V. Pt is advised to f/u w/ her PCP and GI. Time of Re-Eval 1147 )( Re-Eval Status Improved Re-Eval Abdomen Soft, Non-tender Eval Following Treatment Tolerating liquids, no N/, Tolerating solids, no N/V Pain Re-Evaluation Pain improved Exam Post Tx - General Appears non-toxic Plan Post Re-Eval Plan discharge ED Course Medication(s) Ordered Medication(s) Ordered: Central Nervous System Agents Sig/Tara Start time Last Medication Dose Route Stop Time Status Admin Morphine Sulfate 4 MG X1ED STA 04/28 0849 DC 04/28 IV 04/28 0850 0859 Diagnostic Agents Sig/Tara Start time Last Medication Dose Route Stop Time Status Admin Iopamidol 0 .STK-MED ONE 04/28 0937 DC 04/28 .ROUTE 0937 Electrolytic, Caloric, And Elise Sig/Tara Start time Last Medication Dose Route Stop Time Status Admin Sodium Chloride 1,000 ML X1ED 04/28 0900 DCD 04/28 IV 05/28 0859 0857 Gastrointestinal Drugs Sig/Tara Start time Last Medication Dose Route Stop Time Status Admin Famotidine 20 MG X1ED STA 04/28 0849 DC 04/28 PO 04/28 0850 0858 Ondansetron HCl 4 MG X1ED STA 04/28 0849 DC 04/28 IV 04/28 0850 0858 Portions of this section were scribed by Gris Godfrey on 04/28/19 at 1236 Patient Discharge Departure Vital Signs/Condition Vital Signs First Documented: Result Date Time Pulse Ox 96 04/28 0830 B/P 102/65 04/28 0830 B/P Mean 77 04/28 0830 O2 Delivery Room air 04/28 0830 Temp 36.6 04/28 0830 Pulse 89 04/28 0830 Resp 18 04/28 0830 Last Documented: Result Date Time Pulse Ox 1 04/28 1225 B/P 96/66 04/28 1225 B/P Mean 76 04/28 1225 O2 Delivery Room air 04/28 1225 Temp 36.7 04/28 1225 Pulse 84 04/28 1225 Resp 20 04/28 1225 All vital signs available at the time of this entry have been reviewed. Condition Improved Clinical Impression Clinical Impression Primary Impression: Abdominal pain Disposition Decision Discharge )( Discharged to Home Yes )( Time 1150 )( Date 04/28/19 Discharge/Care Plan Counseled Regarding Diagnosis, Lab results, Imaging studies, Prescriptions, Need for follow-up, When to return to ED Prescriptions Tylenol and Pepcid. Prescriptions Reviewed Risks, Benefits Discharge Note I have spoken with the patient and/or caregivers. I have explained the patient's condition, diagnoses and treatment plan based on the information available to me at this time. I have answered the patient's and/or caregiver's questions and addressed any concerns. The patient and/or caregivers have as good an understanding of the patient's diagnosis, condition and treatment plan as can be expected at this point. The vital signs have been stable. The patient's condition is stable and appropriate for discharge from the emergency department. The patient will pursue further outpatient evaluation with the primary care physician or other designated or consulting physician as outlined in the discharge instructions. The patient and/or caregivers are agreeable to this plan of care and follow-up instructions have been explained in detail. The patient and/or caregivers have received these instructions in written format and have expressed an understanding of the discharge instructions. The patient and/or caregivers are aware that any significant change in condition or worsening of symptoms should prompt an immediate return to this or the closest emergency department or a call to 911. Quality Measures Preg Test for Women w/Abd Pain Female age 14-50, Complaint of abdominal pn, Any preg test ordered Smoking Cessation Screened, non user Tobacco Screening/Cessation 18 years or older, Denies tobacco use Supervising Physician Note Scribe Statement Gris Godfrey, 04/28/19 0916, scribing for and in the presence of Dr. Gonzalez. Signed By: Gris Godfrey, 04/28/19 0916 Provider Scribed Statement I personally performed the services described in this documentation and reviewed the documentation that was dictated to the scribe(s) in my presence, and it accurately records my words and actions. Taj Gonzalez, 04/30/19 Portions of this section were scribed by Gris Godfrey on 04/28/19 at 1239 at 0244 [facility] #:[id number] END OF REPORT [facility]
[2025-04-21] MEDS ORDERED: ACETAMINOPHEN 500 MG TAB ONE (12:54)
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
[2025-04-21 14:42] VITALS: TEMP 98.2
[2025-04-21 14:45] VITALS: BP 100/60; O2SAT 98
== END 2025-04-21 13:44 | disposition home or self-care (01) ==
LOC: ER 11:13
DX: O26.892 Other specified pregnancy related conditions, second trimester (principal); J70.5 Respiratory conditions due to smoke inhalation; Z3A.24 24 weeks gestation of pregnancy
CPT/HCPCS: 93005; 99283

== ENCOUNTER 2025-06-21 17:32 | Emergency (ER) | payer OTHER ==
--- OUTSIDE RECORDS SUMMARY | 2025-06-21 17:36 | XMS REPORT | Continuity of Care Document ---
Author Name Unknown Address [address] [facility] [address] [place] [address] [facility] [place] Address [address] [facility] [address] [place] [address] Care Team Providers Care Manager Diabetes Name Role Phone Pcp, Patient Does Not Have A Primary Care Physic margret Unavailable Claritza Avila CNM Attending Clinician Doctor Unassigned, Porum Attending Clinician U navailable Risk, Iju-Vezgy-Yl/High Attending Clinician Unav ailable Minnie Enamorado Attending Clinician Akinsipe Shonna MCCLELLAN Attending Clinician + Visit, Tong Nurse Attending Clinician Marcia King MD, Blaise Woodruff Attending Clinician + Ultrasound, [place] Attending Clinician Sheila Mota MD, Aar Segundo Attending Clinician [phone] Lab, Tong Attending Clinician Unavailable Celina Washburn MD Attending Clinician PRIYA BLUM Attending Clinician UnavailPRIYA Bermeo Attending Clinician Unavailab tejeda Physician, No Primary or Family Admitting Clinic margret Unavailable Payers Payer Name Policy Type Policy Number Effective Date Expirati on Date Source SADIA ABBOTT [id number] 2024 00:00:00 Problems Condition Name Condition Details Condition Category Status Onset Date Resolution Date Last Treatment Date Treating Clinician Comments Source Tetanus, diphtheria , and acellular pertussis (Tdap) vaccinatio n declined Tetanus, diphtheria , and acellular pertussis (Tdap) vaccinatio n declined Disease Active 9- 00:00: 00 [facility] GDM (gestation al diabetes mellitus) GDM (gestation al diabetes mellitus) Disease Active 9-12 00:00: 00 [facility] Anemia of mother in , antepartum Anemia of mother in , antepartum Disease Active 9-10 00:00: 00 [facility] Abnormal maternal glucose tolerance, antepartum Abnormal maternal glucose tolerance, antepartum Disease Active 9-10 00:00: 00 [facility] Flu vaccine refused Flu vaccine refused Disease Active 9-09 00:00: 00 [facility] Depression affecting Depression affecting Disease Active 6-05 00:00: 00 [facility] Maternal varicella, non-immune Maternal varicella, non-immune Disease Active 6-04 00:00: 00 [facility] Obesity affecting Obesity affecting Disease Active 6-03 00:00: 00 [facility] Bipolar disease during Bipolar disease during Disease Active 3-16 00:00: 00 [facility] Mastitis during Mastitis during Disease Resolve d 7-17 00:00: 00 2025-04-05 00:00:00 2025-04-05 08:17:23 [facility] UTI (urinary tract infection) during UTI (urinary tract infection) during Disease Resolve d 0 6-18 00:00: 00 2025-04-05 00:00:00 2025-04-05 08:17:18 [facility] Nexplanon in place Nexplanon in place Disease Resolve d 02-08 00:00: 00 2025-02-23 00:00:00 2025-02-23 12:53:18 [facility] Allergies, Adverse Reactions, Alerts Allergy Name Allergy Type Status Severity Reaction(s) Onset Date Inactive Date Treating Clinician Comments Source folic acid DA Active HI 2018-09 0 00:00: 00 [facility] adhesive tape DA Active HI 2018-09 0 00:00: 00 [facility] folic acid DA Active HI RASH 2018-09 0 00:00: 00 [facility] adhesive tape DA Active HI RASH 2018-09 0 00:00: 00 [facility] folic acid DA Active HI 04-28 00:00: 00 [facility] adhesive tape DA Active HI 04-28 00:00: 00 [facility] No Known Allergie s DA Active U 03-02 00:00: 00 [facility] NO KNOWN DRUG ALLERGIE S Drug Class Active 09-13 00:00: 00 [facility] No Known Drug Allergie s Propensi ty to adverse reaction s Active 09-13 00:00: 00 [facility] Social History Social Habit Start Date Stop Date Quantity Comments Source ASSERTION 2024-11-24 00:00:00 [facility] Alcoholic beverage intake 2025-06-08 00:00:00 2025-06-08 00:00:00 Ex-drinker (finding) [facility] History of Social function 2025-02-08 00:00:00 2025-02-08 00:00:00 [facility] Tobacco use and exposure 2013-01-22 00:00:00 2013-01-22 00:00:00 Smokeless tobacco non-user [facility] Sex assigned at 1995 00:00:00 1995 00:00:00 [facility] Smoking Status Start Date Stop Date Source Never smoked tobacco [facility] Medications Ordered Medication Name Filled Medication Name Start Date Stop Date Current Medication? Ordering Clinician Indication Dosage Frequency Signature (SIG) Comments Components Source lancets (FREESTYLE LANCETS) 28 gauge Misc 05-20 00:00: 00 Yes [id number] Take blood sugar 4 times a day [facility] Blood-Gluco se Meter (FREESTYLE LITE METER) Kit 05-20 00:00: 00 Yes [id number] Take blood sugar 4 times a day [facility] blood sugar diagnostic (FREESTYLE LITE STRIPS) strip 05-20 00:00: 00 Yes [id number] Take blood sugar 4 times a day [facility] Iron Fum & P-FA-Vit B & C No.9 (INTEGRA PLUS) 125 mg iron- 1 mg Cap 05-18 00:00: 00 Yes [id number] 1{capsu le} Take 1 capsule by mouth in the morning. [facility] cephALEXin 500 mg capsule 03-24 00:00: 00 04-04 04:59 :00 Yes [id number] 500mg Take 1 capsule by mouth 4 times daily for 10 days. [facility] Nitrofurant oin&Nit. Macrocryst (MACROBID) 100 mg capsule 100 mg 02-18 15:45: 00 02-18 14:52 :00 No 100mg 100 mg, Oral, ONCE, 1 dose, On Fri02/18/25 at 1045, Routine, Reason for Anti-Infec tive: Documented Infection, Documented Infection Site: Urine, Duration of therapy: Once (ED) [facility] NaCl 0.9% (NS) bolus infusion 1,000 mL 02-18 14:15: 00 02-18 15:28 :00 No 1000mL at 999 mL/hr, 1,000 mL, IV Infusion, ONCE, 1 dose, On Fri02/18/25 at 0915, BERNADINE [facility] Nitrofurant oin&Nit. Macrocryst 100 mg capsule 02-18 00:00: 00 02-26 04:59 :00 No [id number] 100mg Take 1 capsule by mouth in the morning and 1 capsule in the evening. Do all this for 7 days. [facility] Vital Signs Vital Name Observation Time Observation Value Comments Yordan whitney Systolic blood pressure 2025-06-08 14:52:00 103 mm[Hg] [facility] Diastolic blood pressure 2025-06-08 14:52:00 65 mm[Hg] [facility] Heart rate 2025-06-08 14:52:00 97 /min [facility] Body temperature 2025-06-08 14:52:00 36.11 Manuela [facility] Respiratory rate 2025-06-08 14:52:00 18 /min [facility] Body height 2025-06-08 14:52:00 149.9 cm [facility] Body weight 2025-06-08 14:52:00 74.929 kg [facility] BMI 2025-06-08 14:52:00 33.36 kg/m2 [facility] Systolic blood pressure 2025-05-31 20:11:00 118 mm[Hg] [facility] Diastolic blood pressure 2025-05-31 20:11:00 67 mm[Hg] [facility] Heart rate 2025-05-31 20:11:00 104 /min Un[facility] Body temperature 2025-05-31 20:11:00 36.56 Manuela [facility] Respiratory rate 2025-05-31 20:11:00 19 /min [facility] Body height 2025-05-31 20:11:00 149.9 cm [facility] Body weight 2025-05-31 20:11:00 75.524 kg [facility] BMI 2025-05-31 20:11:00 33.63 kg/m2 [facility] Systolic blood pressure 2025-05-17 19:30:00 111 mm[Hg] [facility] Diastolic blood pressure 2025-05-17 19:30:00 74 mm[Hg] [facility] Heart rate 2025-05-17 19:30:00 95 /min [facility] Body temperature 2025-05-17 19:30:00 36.39 Manuela [facility] Respiratory rate 2025-05-17 19:30:00 17 /min [facility] Body height 2025-05-17 19:30:00 149.9 cm [facility] Body weight 2025-05-17 19:30:00 74.475 kg Univ [facility] BMI 2025-05-17 19:30:00 33.16 kg/m2 [facility] Systolic blood pressure 2025-04-19 20:30:00 111 mm[Hg] [facility] Diastolic blood pressure 2025-04-19 20:30:00 73 mm[Hg] [facility] Heart rate 2025-04-19 20:30:00 95 /min [facility] Body temperature 2025-04-19 20:30:00 36.17 Manuela [facility] Respiratory rate 2025-04-19 20:30:00 17 /min [facility] Body height 2025-04-19 20:30:00 149.9 cm [facility] Body weight 2025-04-19 20:30:00 73.086 kg Univ [facility] BMI 2025-04-19 20:30:00 32.54 kg/m2 [facility] Systolic blood pressure 2025-04-05 12:35:00 107 mm[Hg] [facility] Diastolic blood pressure 2025-04-05 12:35:00 71 mm[Hg] [facility] Heart rate 2025-04-05 12:35:00 90 /min Unive [facility] Body temperature 2025-04-05 12:35:00 36.33 Manuela [facility] Respiratory rate 2025-04-05 12:35:00 17 /min [facility] Body height 2025-04-05 12:35:00 149.9 cm [facility] Body weight 2025-04-05 12:35:00 72.717 kg Univ [facility] BMI 2025-04-05 12:35:00 32.38 kg/m2 [facility] Systolic blood pressure 2025-03-24 21:08:00 108 mm[Hg] [facility] Diastolic blood pressure 2025-03-24 21:08:00 74 mm[Hg] [facility] Heart rate 2025-03-24 21:08:00 78 /min Unive [facility] Body temperature 2025-03-24 21:08:00 36.39 Manuela [facility] Respiratory rate 2025-03-24 21:08:00 18 /min [facility] Body height 2025-03-24 21:08:00 149.9 cm Univ [facility] Body weight 2025-03-24 21:08:00 73.539 kg Univ [facility] BMI 2025-03-24 21:08:00 32.75 kg/m2 [facility] Systolic blood pressure 2025-03-08 13:11:00 98 mm[Hg] [facility] Diastolic blood pressure 2025-03-08 13:11:00 70 mm[Hg] [facility] Heart rate 2025-03-08 13:11:00 86 /min Unive [facility] Body temperature 2025-03-08 13:11:00 36.28 Manuela [facility] Respiratory rate 2025-03-08 13:11:00 17 /min [facility] Body height 2025-03-08 13:11:00 149.9 cm Univ [facility] Body weight 2025-03-08 13:11:00 70.931 kg Univ [facility] BMI 2025-03-08 13:11:00 31.58 kg/m2 [facility] Systolic blood pressure 2025-02-23 17:34:00 103 mm[Hg] [facility] Diastolic blood pressure 2025-02-23 17:34:00 67 mm[Hg] [facility] Heart rate 2025-02-23 17:34:00 79 /min Unive [facility] Body temperature 2025-02-23 17:34:00 36.67 Manuela [facility] Respiratory rate 2025-02-23 17:34:00 16 /min [facility] Body height 2025-02-23 17:34:00 149.9 cm [facility] Body weight 2025-02-23 17:34:00 69.457 kg [facility] BMI 2025-02-23 17:34:00 30.93 kg/m2 [facility] Systolic blood pressure 2025-02-18 15:00:00 110 mm[Hg] [facility] Diastolic blood pressure 2025-02-18 15:00:00 70 mm[Hg] [facility] Heart rate 2025-02-18 15:00:00 65 /min [facility] Body temperature 2025-02-18 15:00:00 37.11 Manuela [facility] Respiratory rate 2025-02-18 15:00:00 14 /min [facility] Oxygen saturation in Arterial blood by Pulse oximetry 2025-02-18 15:00:00 99 /min [facility] Body height 2025-02-18 13:21:00 149.9 cm [facility] Body weight 2025-02-18 13:21:00 68.947 kg [facility] BMI 2025-02-18 13:21:00 30.70 kg/m2 [facility] Procedures Procedure Date / Time Performed Performing Clinicia n Source DIABETES TESTING REPORTS 2025-06-10 21:25:35 Doctor Unassigned, Porum [facility] DIABETES TESTING REPORTS 2025-06-07 19:28:19 Doctor Unassigned, Porum [facility] TDAP VACCINE, >11 YRS, IM 2025-05-31 20:22:46 Shonna Murillo [facility] SECOND AND THIRD TRIMESTER ULTRASOUND 2025-05-23 13:26:00 Claritza Avila [facility] GLUCOSE 1 HOUR POST PRANDIAL 2025-05-17 20:36:00 Claritza Avila [facility] CBC WITH DIFF 2025-05-17 20:36:00 Claritza Avila [facility] SECOND AND THIRD TRIMESTER ULTRASOUND 2025-04-22 14:49:00 Claritza Avila [facility] SECOND AND THIRD TRIMESTER ULTRASOUND 2025-03-23 16:06:00 Claritza Avila [facility] NIPT - NON-INVASIVE TEST RESULTS 2025-02-21 20:44:15 Doctor Unassigned, Porum [facility] URINALYSIS 2025-02-18 14:12:00 [facility] COMP. METABOLIC PANEL ([id number]) 2025-02-18 13:44:00 Priya Blum [facility] CBC WITH DIFF 2025-02-18 13:44:00 [facility] POCUS OB US ABD LIMITED 2025-02-18 13:19:28 Priya Blum [facility] Encounters Start Date/Time End Date/Time Encounter Type Admission Type Attending [facility] Care Department Encounter ID Source 2020-07-26 23:00:00 Inpatient [facility] [id number] [facility] 2025-06-21 00:00:00 2025-06-21 16:39:21 Telephone Claritza Avila [facility] ENERGY CONTROL OFFICER [facility] 1.840.114 350.1.13.10 4.2.7.2.686 [id number] [facility] 2025-06-21 00:00:00 2025-06-21 12:36:11 Abstract Claritza Avila [facility] ENERGY CONTROL OFFICER [facility] 1.2840.114 350.1.13.10 4.2.7.2.686 [id number] [facility] 2025-06-10 00:00:00 2025-06-11 02:04:46 Orders Only Doctor Unassigned, Porum Doctor Unassigned, Porum [facility] 1.2.840.114 350.1.13.10 4.2.7.2.686 [id number] [facility] 2025-06-08 09:45:00 2025-06-08 10:16:08 Office Visit Risk, Lydiachp-N p/High Minnie Bryan [facility] ENERGY CONTROL OFFICER [facility] 1.20.114 350.1.13.10 4.2.7.2.686 [id number] [facility] 2025-06-07 00:00:00 2025-06-08 02:04:42 Orders Only Doctor Unassigned, Porum Doctor Unassigned, Porum [facility] 1.20.114 350.1.13.10 4.2.7.2.686 [id number] [facility] 2025-05-31 15:15:00 2025-05-31 15:43:57 Routine Visit Shonna Murillo [facility] ENERGY CONTROL OFFICER [facility] 1.20.114 350.1.13.10 4.2.7.2.686 [id number] [facility] 2025-05-27 00:00:00 2025-05-27 09:55:32 Telephone Claritza Avila [facility] ENERGY CONTROL OFFICER [facility] 1.20.114 350.1.13.10 4.2.7.2.686 [id number] [facility] 2025-05-24 00:00:00 2025-05-24 07:47:09 Abstract Claritza Avila [facility] ENERGY CONTROL OFFICER [facility] 1.20.114 350.1.13.10 4.2.7.2.686 [id number] [facility] 2025-05-23 14:00:00 2025-05-23 14:00:00 Nurse Visit Visit, Lydiachp Blaise Echavarria Damilola C [facility] ENERGY CONTROL OFFICER [facility] 1.2.840.114 350.1.13.10 4.2.7.2.686 [id number] [facility] 2025-05-23 08:00:00 2025-05-23 08:26:04 Bedspread Seamer Visit Ultrasound, Blaise Frazier Shannon M [facility] ENERGY CONTROL OFFICER [facility] 1.2.840.114 350.1.13.10 4.2.7.2.686 [id number] [facility] 2025-04-20 00:00:00 2025-05-21 18:45:32 Patient Secure Msg Doctor Unassigned, Porum Doctor Unassigned, Porum [facility] ([facility]) 1.2840.114 350.1.13.10 4.2.7.2.686 [id number] [facility] 2025-05-20 00:00:00 2025-05-20 08:57:59 Telephone Claritza Avila [facility] ENERGY CONTROL OFFICER [facility] 1.2840.114 350.1.13.10 4.2.7.2.686 [id number] [facility] 2025-05-19 07:45:00 2025-05-19 10:51:11 Bedspread Seamer Visit Lab, Claritza Yusuf Lab, Tong [facility] ENERGY CONTROL OFFICER [facility] CHILD [facility] 1.2840.114 350.1.13.10 4.2.7.2.686 [id number] [facility] 2025-05-18 00:00:00 2025-05-18 08:57:21 Telephone Claritza Avila [facility] ENERGY CONTROL OFFICER [facility] 1.2.840.114 350.1.13.10 4.2.7.2.686 [id number] [facility] 2025-05-17 14:45:00 2025-05-17 15:39:19 Routine Visit Claritza Avila [facility] ENERGY CONTROL OFFICER [facility] 1.2.840.114 350.1.13.10 4.2.7.2.686 [id number] [facility] 2025-04-22 00:00:00 2025-04-22 11:51:38 Abstract Claritza Avial [facility] ENERGY CONTROL OFFICER [facility] & CHILD [facility] 1.2.840.114 350.1.13.10 4.2.7.2.686 [id number] [facility] 2025-04-22 09:30:00 2025-04-22 09:51:20 Bedspread Seamer Visit Ultrasound, Ara Anand [facility] ENERGY CONTROL OFFICER [facility] 1.2.840.114 350.1.13.10 4.2.7.2.686 [id number] [facility] 2025-04-19 00:00:00 2025-04-19 16:06:05 Telephone Claritza Avila [facility] ENERGY CONTROL OFFICER [facility] 1.2.840.114 350.1.13.10 4.2.7.2.686 [id number] [facility] 2025-04-19 15:15:00 2025-04-19 15:58:57 Routine Visit Claritza Avila [facility] ENERGY CONTROL OFFICER [facility] 1.2.840.114 350.1.13.10 4.2.7.2.686 [id number] [facility] 2025-04-07 00:00:00 2025-04-07 21:39:52 Abstract KatClaritza alcala [facility] ENERGY CONTROL OFFICER [facility] 1.2.840.114 350.1.13.10 4.2.7.2.686 [id number] [facility] 2025-04-05 07:30:00 2025-04-05 08:08:18 Routine Visit Katfredrick Claritza Ortiz [facility] ENERGY CONTROL OFFICER [facility] CHILD [facility] 1.2.840.114 350.1.13.10 4.2.7.2.686 [id number] [facility] 2025-03-24 16:00:00 2025-03-24 16:30:47 Routine Visit Claritza Avila [facility] ENERGY CONTROL OFFICER [facility] CHILD [facility] 1.2.840.114 350.1.13.10 4.2.7.2.686 [id number] [facility] 2025-03-23 00:00:00 2025-03-23 11:56:55 Abstract Claritza Avila [facility] ENERGY CONTROL OFFICER [facility] CHILD [facility] 1.2.840.114 350.1.13.10 4.2.7.2.686 [id number] [facility] 2025-03-23 00:00:00 2025-03-23 11:19:00 Telephone Claritza Avila [facility] ENERGY CONTROL OFFICER [facility] CHILD [facility] 1.2.840.114 350.1.13.10 4.2.7.2.686 [id number] [facility] 2025-03-23 08:45:00 2025-03-23 11:17:13 Bedspread Seamer [facility] EN[facility]GY CONTROL OFFICER [facility] CHILD [facility] 1.2.840.114 350.1.13.10 4.2.7.2.686 [id number] [facility] 2025-03-23 10:00:00 2025-03-23 11:14:41 Bedspread Seamer Visit Ultrasound, Celina Kohler [facility] ENERGY CONTROL OFFICER [facility] MATERNAL & CHILD [facility] 1.2.840.114 350.1.13.10 4.2.7.2.686 [id number] [facility] 2025-03-09 00:00:00 2025-03-09 15:55:54 Telephone AmbrocioClaritza guevara [facility] ENERGY CONTROL OFFICER [facility] MATERNAL & CHILD [facility] 1.2.840.114 350.1.13.10 4.2.7.2.686 [id number] [facility] 2025-03-08 08:15:00 2025-03-08 08:41:28 Routine Visit AustinShilpiClaritza Diana [facility] ENERGY CONTROL OFFICER [facility] 1.2.840.114 350.1.13.10 4.2.7.2.686 [id number] [facility] 2025-02-23 12:45:00 2025-02-23 13:18:34 Office Visit AmbrocioClaritza guevara [facility] ENERGY CONTROL OFFICER [facility] 1.2.840.114 350.1.13.10 4.2.7.2.686 [id number] [facility] 2025-02-22 00:00:00 2025-02-22 08:39:26 Telephone AmbrocioClaritza guevara [facility] ENERGY CONTROL OFFICER [facility]NAL & CHILD [facility] 1.2.840.114 350.1.13.10 4.2.7.2.686 [id number] [facility] 2025-02-21 00:00:00 2025-02-22 02:05:32 Orders Only Doctor Unassigned, Porum Doctor Unassigned, Porum [facility] 1.2.840.114 350.1.13.10 4.2.7.2.686 [id number] [facility] 2025-02-18 08:21:00 2025-02-18 10:45:00 Emergency X PRIYA LBUM SANDRA [facility] ERT [id number] [facility] Results Test Description Test Time Test Comments Results Resul t Comments Source DIABETES TESTING REPORTS 2025-06-10 21:25:35 Ordered by an unspecified provider. [facility] DIABETES TESTING REPORTS 2025-06-07 19:28:19 [facility] by an unspecified provider[id number] 06:30:38* Test Item Value Reference Range Interpretation Comme nts WBC (test code = 6690-2) 13.65 4.30-11.10 H RBC (test code = 789-8) 3.64 3.93-5.25 L HGB (test code = 718-7) 10.7 g/dL 11.6-15.0 L HCT (test code = 4544-3) 32 % 35.7-45.2 L MCV (test code = 787-2) 87.9 fL 80.6-95.5 MCH (test code = 785-6) 29.4 pg 25.9-32.8 MCHC (test code = 786-4) 33.4 g/dL 31.6-35.1 RDW-SD (test code = 35280-9) 41.6 fL 39.0-49.9 RDW-CV (test code = 788-0) 13.1 % 12.0-15.5 PLT (test code = 777-3) 398 166-358 H MPV (test code = 10155-6) 9.8 fL 9.5-12.9 NRBC/100 WBC (test code = 0454358891) 0 0.0-10.0 NRBC x10^3 (test code = 1198050192) See_Comment [Automated messa ge] The system which generated this result transmitted reference range: 10*3/?L. The reference range was not used to interpret this result as normal/abnormal. GRAN MAT (NEUT) % (test code = 770-8) 71.1 % IMM GRAN % (test code = 4732582669) 0.7 % LYMPH % (test code = 736-9) 21.4 % MONO % (test code = 5905-5) 4.7 % EOS % (test code = 713-8) 1.7 % BASO % (test code = 706-2) 0.4 % GRAN MAT x10^3(ANC) (test code = 9893295057) 9.71 10*3/uL 1.88-7.09 H IMM GRAN x10^3 (test code = 5064354428) 0.09 10*3/uL 0.00-0.06 H LYMPH x10^3 (test code = 731-0) 2.92 10*3/uL 1.32-3.29 MONO x10^3 (test code = 742-7) 0.64 10*3/uL 0.33-0.92 EOS x10^3 (test code = 711-2) 0.23 10*3/uL 0.03-0.39 BASO x10^3 (test code = 704-7) 0.06 10*3/uL 0.01-0.07 Lab Interpretation (test code = 97619-2) Abnormal [facility] - NON-INVASIVE TEST RESULTS 2025-02-21 20:44:15Ordered by an unspecified provider.[facility] [id number] 13:41:07Study Date and Time: 2025-02-18 08:19Study Author: Priya Blum OB - TAUS:Indications: ? ?Indicat ions for this focused Ultrasound:: Abdominal/Pelvic Pain ? ?Other (answer below): N/AViews Obtained: ? ?The following structures were examined from a transabdominal approach: Transverse uterus and Vesicouterine/Rectouterine Spaces, Sagittal uterus and Vesicouterine/Rectouterine Spaces, Right Adnexa, Left Adnexa ? ?Other views: N/AUterine Findings: ? ?Uterus: N/A ? ?Vesicouterine/Rectouterine spaces: No fluid ? ?Intrauterine : Present [...] N/A Signed by Priya Blum on 2025-02-18 08:41UnH[facility]Coronavirus 2018 [facility] [id number] 12:26:00* Test Item Value Reference Range Interpretation Comme nts Coronavirus 2019 [facility] Bedside (test code = [id number]) Negative Negative Negative results should be treated as presumptive and, ifinconsistent with clinical signs and symptoms or necessaryfor patient management, should be tested with an alternativemolecular assay. Negative results do not preclude KSKX-SsA-8srplykuyh and should not be used as the sole basis forpatient management decisions. Negative results should beconsidered in the context of a patient's recent exposures,history, presence of clinical signs and symptoms consistentwith COVID-19. - CT ABD PELVIS W/[id number] 17:35:00FAX: Jose Elder MD [phone] [place]: St: REG Name: CHUNG SUE [facility] : 1995 Age/S: 23/F[address] [facility] Unit: [id number] Loc: [place], [place] Phys: Jose Elder MD77591 Acct: [id number] Dis Date: Status: REG ER PHONE #: [phone] Exam Date: 06/20/2019 1717 FAX #: [phone] Reason: LEft flank pain EXAMS: CPT CODE: [id number] CT ABD PELVIS W/CONT 48055 HISTORY: LEft flank pain EXAM TYPE: CT [...] Signed Report (CONTINUED) FAX: Jose Elder MD [phone] [place]: St: REG --------- Name: CHUNG SUE [facility] : 1995 Age/S: 23/F [address] Unit: [id number] Loc: [place], [place]: [place] [address] Acct: [id number] Date: Status: REG ER PHONE #: [phone] Exam Date: 06/20/2019 1717 FAX #: [phone] Reason: LEft flank pain EXAMS: CPT CODE: [id number] CT ABD PELVIS W/CONT 07551 (Continued) structure seenin the right adnexa measuring 4.2 cm AP [...] fluid. Gastrointestinal: No bowel obstruction or perienteric inflammation.The appendix is normal. Vascular: No evidence of [...] renal calculi. No perinephric fat stranding. at 1732 Reported and signed by: SAM Flood CC: Jose Elder MD Technologist: MAXIMILIAN LAWRENCE Trnscrd Dt/Tm: 06/20/2019 (3995) jumana BARRAGANKW9 Orig Print D/T: S: 06/20/2019 (3553 PAGE 2 Signed ReportBASIC METABOLIC [id number] 16:09:00* Test Item Value Reference Range Interpretation [...] 9.0 mg/dl 8.0-10.5 N HEPATIC FUNCTION PANEL [id number] 16:09:00* Test Item Value Reference Range Interpretation [...] code = ALKP) 63 Units/L 50.0-136.0 N [id number] 16:09:00* Test Item Value Reference Range Interpretation Comme nts LIPASE (test code = LIP) 82 Units/L 65.0-230.0 N BASIC METABOLIC [id number] 16:02:00* Test Item Value Reference Range Interpretation [...] = CA) mg/dl 8.0-10.5 HEPATIC FUNCTION PANEL [id number] 16:02:00* Test Item Value Reference Range Interpretation [...] ( test code = ALKP) Units/L 50.0-136.0 [id number] 16:02:00* Test Item Value Reference Range Interpretation Comme nts LIPASE (test code = LIP) Units/L 65.0-230.0 URINALYSIS [id number] 15:59:00* Test Item Value Reference Range Interpretation [...] (test code = MUCU) 2+ UR HCG [id number] 15:59:00* Test Item Value Reference Range Interpretation Comme nts UR HCG QUAL (test code = HCGQLU) NEGATIVE NEGATIVE CBC W/AUTO [id number] 15:56:00* Test Item Value Reference Range Interpretation [...] = BA#) 0.1 K/mm3 0.0-0.2 N URINALYSIS [id number] 15:53:00* Test Item Value Reference Range Interpretation [...] (test code = BACU) NONE UR HCG [id number] 15:53:00* Test Item Value Reference Range Interpretation Comme nts UR HCG QUAL (test code = HCGQLU) NEGATIVE - US ABDOMEN [id number] 09:23:00FAX: Taj Gonzalez MD [place]: St: DEP Name: CHUNG SUE [facility] : 1995 Age/S: 23/F [address] [facility] Unit #: [id number] Loc: [place], [place]: [place] [address] Acct: [id number] Dis Date: Status: [facility] ER PHONE #: [phone] Exam Date: 04/28/2019 1120 FAX #: [phone] Reason: RUQ pain Report Has Been Amended EXAMS: CPT CODE: [id number] US ABDOMEN LTD 09126 Addendum - 04/29/2019 SIGNED 04/29/2019 ADDENDUM: [id number] US/USABDLTD Addendum: The 2nd sentence describing the [...] Signed Report (CONTINUED) FAX: Taj Gonzalez MD [place]: St: [facility] Name: CHUNG SUE [facility] : 1995 Age/S: 23/F [address] [facility] Unit #: [id number] Loc: [place], [place]: [place] [address] Acct: [id number] Dis Date: Status: [facility] ER PHONE #: [phone] Exam Date: 04/28/2019 1120 FAX #: [phone] Reason: RUQ pain Report Has Been Amended EXAMS: CPT CODE: [id number] ABDOMEN LTD 07201 (Continued) Impression: Normal gallbladder appearance. No gallstones evident. Iso echogenic, very subtle non mass-like area in the posterior left lobe of the liver, suggesting benign findings. Location: U 19 at 1142 Reported and signed by: Get Gottlieb M.D. CC: Taj Gonzalez MD Technologist: KATIE MOYA [facility] Date/Time/By: 04/28/2019 (1142) : By: Carlee PAGE 2 Signed Report FAX: Taj Gonzalez MD [place]: St: [facility] -- Name: CHUNG SUE [facility] : 1995 Age/S: [address] Unit #: [id number] Loc: [place], [place]: [place] [address] Acct: [id number] Dis Date: Status: DEP ER PHONE #: [phone] Exam Date: 04/28/2019 1120 FAX #: [phone] Reason: RUQ pain Report Has Been Amended EXAMS: CPT CODE: [id number] US ABDOMEN LTD 58389 (Continued) Orig Print D/T: S: 04/28/2019 (9845) PAGE 3 Signed Report- US ABDOMEN [id number] 11:42:00FAX: Taj Gonzalez MD [place]: St: REG Name: CHUNG SUE [facility] : 1995 Age/S: [address] Unit #: [id number] Loc: [place], [place]: [place] [address] Acct: [id number] Dis Date: Status: REG ER PHONE #: [phone] Exam Date: 04/28/2019 1120 FAX #: [phone] Reason: RUQ pain EXAMS: CPT CODE: [id number] US ABDOMEN LTD 84981 ULTRASOUND: - US ABDOMEN LTD H istory: Right upper quadrant pain, abdominal pain Comparison: None. B-mode/Govea scale imaging with color Doppler perfusion imaging and spectral analysis was performed. The aorta has normal diameter maximum measurement 1.3 cm. Pancreas intact where seen. As the pancreas is normal. Detail partially obscured. IVC intact seen at the edge of the liver. Liver echogenicity pattern homogeneous with liversize 12.9 cm. The posterior margin of the left lobe of the liver shows a vague oval almost isogenic area at 4.5 x 1.6 x 3.6 cm likely representing the CT findings but this is not shown to be hyperperfused, a very subtle abnormality. There does not appear to be architectural distortion. No other foc al mass lesions are seen. Antegrade portal vein flow seen on color Doppler. The gallbladder is normally distended. No stones or wall thickening evident. Common bile duct normal 2.8 mm. The right kidney appears to be intact measuring 10.2 cm in length. No shadowing stones or obstruction or cortical abnormality. No ascites found. Impression: Normal gallbladder appearance. No gallstones evident. Isoechogenic, very subtle non mass-like area in the posterior left lobe of the liver, suggesting benign findings. Location: U 19 at 1142 Reported and signed by: Get Gottlieb M.D. CC: Taj Gonzalez MD Technologist: KATIE MOYA [facility] Date/Time/By: 04/28/2019 (1142) : By: [facility]eline[facility] PAGE 1 Signed Report FAX: Taj Gonzalez MD [place]: St: REG ------ Name: JAYCECHUNG [facility] : 1995 Age/S: 23/F [address] Unit #: [id number] Loc: [place]: [place] [address] Acct: [id number] DisDate: Status: [facility] ER PHONE #: [phone] Exam Date: 04/28/2019 1120 FAX #: [phone] Reason: RUQ pain EXAMS: CPT CODE: [id number] ABDOMEN LTD 35833 (Continued) Orig Print D/T: S: 04/28/2019 (1145) PAGE 2 Signed Report- CT ABD PELVIS W/[id number] 10:06:00 FAX: Taj Gonzalez MD [place]: St: REG Name: CHUNG SUE [facility] : 1995 Age/S: 23/F [address] Unit: [id number] Loc: [place], [place] [address] Acct: [id number] Dis Date: Status: [facility] ER PHONE #: [phone] Exam Date: 04/28/2019 0958 FAX #: [phone] Reason: RUQ pain, RLQ PAIN EXAMS: CPT CODE: [id number] CT ABD PELVIS W/CONT 42765 HISTORY: Right l ower quadrant pain, right upper quadrant pain. CT [...] pelvis was performed. The study includes some ofthe lung bases, which appear to be clear. No pericardial or pleural fluid can be found. The liver perfuses normally with no focal lesions. Margins are smooth. There is a vague subtly hypodense perfusi on abnormality in the left lobe of the [...] Signed Report (CONTINUED) FAX: Taj Gonzalez MD [place]: St: REG -- Name: CHUNG SUE [facility] : 1995 Age/S: 23/F [address] [facility] Unit: [id number] [place]: [place]: [place] [address] Acct: [id number] Dis Date: Status: REG ER PHONE #: [phone] Exam Date: 04/28/2019 0958 FAX #: [phone] Reason: RUQ pain, RLQ PAIN EXAMS: CPT CODE: [id number] CT ABD PELVIS W/CONT 98545 (Continued) ligament may need further assessment with sonography or MRI. Correlate with liver enzyme abnormalities. No obvious gallbladder abnormality acutely. Normal common bile duct Location: U19 at 1006 Reported and signed by: Get Gottlieb M.D. CC: Taj Gonzalez MD Technologist: CHUNG JOSE; FLAKITA GALAVIZ Trnscrd Dt/Tm: 04/28/2019 (1006) t.RCM Orig Print D/T: S: 04/28/2019 (1009 PAGE 2 Signed ReportURINALYSIS [id number] 09:40:00* Test Item Value Reference Range Interpretation [...] Specimen comments: Clean CatchDRUGS OF ABUSE SCREEN [id number] 09:37:00* Test Item Value Reference Range Interpretation [...] Methadone cut-o ff concentration: 300 ng/mL URINALYSIS [id number] 09:37:00* Test Item Value Reference Range Interpretation [...] BACU) NONE Specimen comments: Clean CatchBASIC METABOLIC [id number] 09:24:00* Test Item Value Reference Range Interpretation [...] CA) 8.6 mg/dl 8.0-10.5 N Specimen comments: BioTalk TechnologiesHEPATIC FUNCTION PANEL [id number] 09:24:00* Test Item Value Reference Range Interpretation [...] 60 Units/L 50.0-136.0 N Specimen comments: Clean [id number] 09:24:00* Test Item Value Reference Range Interpretation Comme nts LIPASE (test code = LIP) 67 Units/L 65.0-230.0 N Specimen comments: Clean CatchHCG SERUM [id number] 09:24:00* Test Item Value Reference Range Interpretation Comme nts HCG SERUM QUAL (test code = HCGQL) NEGATIVE NEGATIVE Specimen comments: Clean CatchBASIC METABOLIC [id number] 09:21:00* Test Item Value Reference Range Interpretation [...] 8.0-10.5 Specimen comments: Clean CatchHEPATIC FUNCTION PANEL [id number] 09:21:00* Test Item Value Reference Range Interpretation [...] = ALKP) Units/L 50.0-136.0 Specimen comments: Clean [id number] 09:21:00* Test Item Value Reference Range Interpretation Comme nts LIPASE (test code = LIP) Units/L 65.0-230.0 Specimen comments: Clean CatchHCG SERUM [id number] 09:21:00* Test Item Value Reference Range Interpretation Comme nts HCG SERUM QUAL (test code = HCGQL) NEGATIVE NEGATIVE Specimen comments: Clean CatchCBC W/AUTO [id number] 09:18:00* Test Item Value Reference Range Interpretation [...] BA#) 0.1 K/mm3 0.0-0.2 N BASIC METABOLIC [id number] 09:15:00* Test Item Value Reference Range Interpretation [...] 8.0-10.5 Specimen comments: Clean CatchHEPATIC FUNCTION PANEL [id number] 09:15:00* Test Item Value Reference Range Interpretation [...] = ALKP) Units/L 50.0-136.0 Specimen comments: Clean [id number] 09:15:00* Test Item Value Reference Range Interpretation Comme nts LIPASE (test code = LIP) Units/L 65.0-230.0 Specimen comments: Clean CatchHCG SERUM [id number] 09:15:00* Test Item Value Reference Range Interpretation Comme nts HCG SERUM QUAL (test code = HCGQL) NEGATIVE NEGATIVE Specimen comments: Clean CatchCOMPREHENSIVE METABOLIC [id number] 16:14:00* Test Item Value Reference Range Interpretation [...] ALKP) 54 Units/L 50.0-136.0 N HCG SERUM [id number] 16:14:00* Test Item Value Reference Range Interpretation Comme nts HCG SERUM QUAL (test code = HCGQL) NEGATIVE NEGATIVE [id number] 16:14:00* Test Item Value Reference Range Interpretation Comme nts ALCOHOL (test code = ALC) 0.00 gm/dL 0.00-0.00 N ETHYL ALCOHOL VA LUES - INTERPRETATION: 0.050 GM/DL - NOT INTOXICATED 0.100 GM/DL - INTOXICATED 0.350-0.450 GM/DL - SEVERELY INTOXICATED 0.550 GM/DL- FATAL INTOXICATION COMPREHENSIVE METABOLIC [id number] 16:08:00* Test Item Value Reference Range Interpretation [...] ALKP) 54 Units/L 50.0-136.0 N HCG SERUM [id number] 16:08:00* Test Item Value Reference Range Interpretation Comme nts HCG SERUM QUAL (test code = HCGQL) NEGATIVE [id number] 16:08:00* Test Item Value Reference Range Interpretation Comme nts ALCOHOL (test code = ALC) 0.00 gm/dL 0.00-0.00 N ETHYL ALCOHOL VA LUES - INTERPRETATION: 0.050 GM/DL - NOT INTOXICATED 0.100 GM/DL - INTOXICATED 0.350-0.450 GM/DL - SEVERELY INTOXICATED 0.550 GM/DL- FATAL INTOXICATION DRUGS OF ABUSE SCREEN [id number] 16:04:00* Test Item Value Reference Range Interpretation [...] NEGATIVE Methadone cut-o ff concentration: 300 ng/mL HCG SERUM [id number] 16:03:00* Test Item Value Reference Range Interpretation Comme nts HCG SERUM QUAL (test code = HCGQL) NEGATIVE [id number] 16:03:00* Test Item Value Reference Range Interpretation Comme nts ALCOHOL (test code = ALC) gm/dL 0.00-0.00 COMPREHENSIVE METABOLIC [id number] 16:03:00* Test Item Value Reference Range Interpretation [...] ( test code = ALKP) Units/L 50.0-136.0 URINALYSIS [id number] 16:02:00* Test Item Value Reference Range Interpretation [...] (test code = BACU) FEW NONE URINALYSIS [id number] 15:55:00* Test Item Value Reference Range Interpretation [...] (test code = BACU) NONE CBC W/AUTO [id number] 15:49:00* Test Item Value Reference Range Interpretation [...] 0.0-0.2 N Notes Date/Time Note Provider Source 2025-06-21 16:34:07 Pt called, states has vaginal boil x 2 days. Reports pain has progressively spread and boil is hard and warm to the touch. Pt reports using warm compresses with no relief. Reports taking otc tylenol and pain remains 5/10. Denies fever, body aches, and chills. Pt has appt on 06/22/2025. Pt advised to follow up with emergency room and then FU with PNV on 06/22/2025. Pt verbalized understanding. Maryam Addison RN 06/21/25 4:34 PM [facility] 2025-06-21 16:23:22 Chung Sue is a 29 year old female Patient reports Hard lump in the vagina area, unbearable pain with movement x 2 days Size of quarter [phone] (home) [address] Amanda Mcclain [facility] 2025-05-27 09:50:50 Called pt, pt reports BG 94 fasting. BG after eating 94 and then shortly after 88. Advised wnl. Pt asymptomatic at this time. Strict er warnings given. Verbalized understanding. Maryam Addison RN 05/27/25 9:51 AM [facility] 2025-05-27 09:44:34 Copied from [facility] #[id number]. Topic: Clinical - Medical Advice >> May 27, 2025 9:42 AM Patient Iron Piler wrote: Chung Sue is a 29 year old female Pt is calling to speak with a nurse about her blood sugar levels. Pt is at 84 currently no other symptoms. Calixto Rodrigez [facility] 2025-05-20 08:57:26 Patient diagnosed with GDM per provider. Advised patient that blood glucose monitor and supplies to be dispensed at pharmacy. Advised patient that she will need to come in for a diabetic teaching as a nurse visit. Pt scheduled. Patient verbalizes understanding. Prashant Gil LVN 05/20/2025 8:57 AM Prashant Gil LVN [facility] 2025-05-20 08:41:53 Attempt #1 no answer, LVM to call back clinic. [facility] 2025-05-20 07:28:51 Please call patient and let her know she is GDM and needs education. I erx all supplies to the pharmacy. T [facility] 2025-05-18 08:56:33 Pt stated she will have to ask off of work tomorrow and if she is not able to get off will have to reschedule 3 hr gtt. Rosa Elena Magallanes LVN [facility] 2025-05-18 08:48:17 Chung Sue is a 29 year old female Patient returning missed call. 3hr lab apt has been scheduled. Please call back Danielle Magallanes [facility] 2025-05-18 08:35:41 Attempted to call patient, no answer, left vm. T [facility] 2025-05-18 07:25:19 Please call patient and set up 3 hour GTT. I also sent iron supplement to pharmacy. T [facility] 2025-04-19 15:51:47 Noted. Jonathan Uribe [facility] 2025-04-19 15:05:39 Copied from [facility] #[id number]. Topic: Appointment - Late >> Apr 19, 2025 3:03 PM Patient Iron Piler wrote: Chung Sue is a 29 year old female running 5 mins late Marleni Buchanan [facility] 2025-03-23 16:10:44 Called pt to assess [...] understanding. Maryam Addison RN 03/23/25 4:13 PM [facility] 2025-03-23 11:14:33 Pt in clinic c/o [...] Strict ED warnings given. Pt verbalized understanding. THEODORE MARIA RN 03/23/2025 11:17 AM Theodore Maria RN [facility] 2025-03-09 15:46:32 Called pt, pt reports [...] understanding. Maryam Addison RN 03/09/25 3:55 PM [facility] 2025-03-09 15:07:24 Chung Sue is a 29 year old female Pt is calling stating she is having pain in there arm where her bc was taken out. Pain started last week and has gotten worse. Said its bad when her muscle flexes. Please call [phone] (home) Oumou Paulino [facility] 2025-02-22 08:37:25 Patient wanted to know if she could drive herself after her procedure tomorrow. Informed patient she could drive after procedure, pt stated she will bring her so he can drive her after. Rosa Elena Magallanes LVN [facility] 2025-02-22 08:13:22 Chung Sue is a 29 year old female Pt is calling requesting to speak with a nurse to discuss nexplanon removal procedure. Please contact pt at [phone]. Pt is 16wks . Jorge Negro [facility] 2025-02-18 10:48:00 Pt discharged with diagnosis of Abdominal pain affecting . Printed and verbal instructions reviewed with and given to Pt and spuse. Prescriptions given x 1. Pt verbalized understanding of teaching, prescribed Macrobid, and recommended follow-up. Denies questions or concerns at this time. Pt ambulatory at discharge. Appears in no apparent distress. No ataxia noted. Accompanied by spouse. [facility] Linda Mota RN [facility] 2025-02-18 10:32:14 NS bolus completed. Pt tolerated well. [facility] 2025-02-18 10:04:29 D/C pending IV fluids completion [facility] 2025-02-18 09:16:03 Pt was in the restroom to provide UA and came to her bay. Pt returned to the bay and confirmed was at bedside. [facility] 2025-02-18 08:20:04 [place] states: "Pt started having abdominal pain last night. She is 15 weeks . This is her second . She did have some bleeding last month and they diagnosed her with placenta previa. Her bgl was 95" G 2 P 1 A 0 OB: [facility]. First was natural. Denies bleeding at this time. [facility] Nohemy Nelson RN [facility] 2025-02-18 08:19:00 [facility] Emergency Department Note Patient Name: Chung Sue Date of : 1995 29 year old female Treatment Room: TX2 Primary Care Physician: PATIENT DOES NOT HAVE A PCP Patient Escorted by: Self [9] Mode of Arrival: EMS - [facility] [69] EMS Treatment Prior to ED Arrival: STUDENT UNION CONSULTANT treatment: None Travel and Exposure Screening: Symptoms [...] 2 para 1-0-0-1. She does follow with ENERGY CONTROL OFFICER here at [facility]. She denies any vaginal bleeding. She states [...] 0.01 - 0.07 10*3/uL COMP. METABOLIC PANEL (92761) - Abnormal NA 134 (*) 135 - [...] URINALYSIS CBC WITH DIFF COMP. METABOLIC PANEL (83401) Orders Placed This Encounter Medications NaCl 0.9% (NS) bolus infusion 1,000 mL Nitrofurantoin&Nit. Macrocryst (MACROBID) 100 mg capsule 100 mg Nitrofurantoin&Nit. Macrocryst 100 mg capsule First Provider Eval: ED Events Date/Time Event User Comments 02/18/25819 Medical Screening Begins PRIYA BLUM DO -- 02/18/25 0820 First Provider Evaluation PRIYA BLUM DO -- ED COURSE Diagnosis/Impression as of 02/18/25 1000 Abdominal pain affecting Acute cystitis without hematuria Results Procedures: Procedures MDM: Assessment & Plan Medical Decision Making The patient presents from home with EMS for eval for abdominal pain while . She states her LMP was in October and she is 2 para 1-0-0-1. She does follow with ENERGY CONTROL OFFICER here at [facility]. She denies any vaginal bleeding. She states [...] and is ok for dc home with bootmaker f/u in one week. Problems Addressed: Abdominal [...] signed by: Priya Blum DO 02/18/25 1000 [facility] 2020-07-26 23:40:00 [facility] ([facility]) EMERGENCY PROVIDER REPORT REPORT#:[id number] REPORT STATUS: Signed DATE:07/26/20 TIME: 2339 PATIENT: CHUNG SUE UNIT #: [id number] ROOM/BED: AGE: 24 SEX: F PCP PHYS: [...] hemoptysis or dizziness. General Initial Greet Date/Time 07/26/202302 Presentation Chief Complaint __ (covid-exposure ) Review [...] Ox 97 07/26 2301 B/P 105/72 07/26 230 B/P Mean 83 07/26 2301 O2 Delivery Room air 07/26 2301 Temp 36.5 07/26 2301 Pulse 87 07/26 2301 Resp 18 07/26 2301 Last Documented: Result Date Time Pulse Ox 97 07/26 230 B/P 105/72 07/26 2301 B/P Mean 83 [...] No Known Home Medications at 2348 RPT #:[id number] END OF REPORT [facility] 2019-06-20 15:42:00 [facility] ([facility] EMERGENCY PROVIDER REPORT REPORT#:[id number] REPORT STATUS: Signed DATE:06/20/19 TIME: 1542 PATIENT: CHUNG SUE UNIT #: [id number] ROOM/BED: AGE: 23 SEX: F PCP PHYS: No Primary or Family Physician SERVICE AUTHOR: Jose Elder MD * ALL edits or amendments must be made on the electronic/computer document * HPI-Back Pain Under 40 General Confirmed Patient Yes Date/Time Seen by Provider 06/20/19 1533 Presentation Chief Complaint Pain, flank L Hx Obtained From Patient, C.O.D. Biller )( Sudden in Onset? Yes Onset Occurred [...] (Auto) (23.0 - 38.0 %) 20.3 L Crenshaw % (Auto) (1.0 - 10.0 %) 8.8 Eos % (Auto) (1.0 - 5.0 %) 1.5 Baso % (Auto) (0.0 - 1.0 %) 0.6 Neut # (Auto) (2.4 - 6.3 K/mm3) 7.8 H Lymph # (Auto) (1.2 - 4.0 K/mm3) 2.3 Crenshaw # (Auto) (0.0 - 0.6 K/mm3) 1.0 H Eos # (Auto) (0.0 - 0.7 K/MM3) 0.2 Baso # (Auto) (0.0 - 0.2 K/mm3) 0.1 Immature Gran % (0.0 - 0.4 %) 0.3 Immature Gran # (0.00 - 0.07 x10 3/uL) 0.03 Urines Urine Color LT YELLOW Urine Appearance HAZY Urine pH (5.0 - 9.0) 6.5 Ur Specific [place] (1.000 - 1.030) 1.010 Urine Protein (NEGATIVE [...] Date/Time Procedure - Status Source Growth 06/20 1559 Urine Culture - RECD URINE Recent Impressions: [...] calculi. No perinephric fat stranding. Impression By: AngelineKWTristan - LOLA NEGRETE M.D. Lab Statement Laboratory studies reviewed [...] 4 MG X1ED STA 06/20 1540 DC 10/ IV 06/20 1541 1552 Diagnostic Agents Sig/Tara Start time Last Medication Dose Route Stop Time Status Admin Iopamidol 0 .STK-MED ONE 06/20 1707 DC 06/20 IV 1725 Gastrointestinal Drugs Sig/Tara Start time Last Medication Dose Route Stop Time Status Admin Ondansetron HCl 4 MG X1ED STA 06/20 1540 DC 10 IV 06/20 1541 1552 Portions of this section were scribed by Heather Blank on 06/20/19 at 1742 Patient Discharge Departure Vital Signs/Condition Vital Signs First Documented: Result Date Time Pulse Ox 98 06/20 1533 B/P 118/71 06/20 1533 B/P Mean 86 06/20 1533 O2 Delivery Room air 06/20 153 Temp 36.5 06/20 153 Pulse 91 06/20 1533 Resp 18 06/20 1533 Last Documented: Result Date Time Pulse Ox 99 06/20 1749 B/P 100/61 06/20 1749 B/P Mean 74 06/20 1749 O2 Delivery Room air 06/20 1749 Temp 36.5 06/20 174 Pulse 82 06/20 174 Resp 18 06/20 174 All vital signs available at the time of this entry have been reviewed. Condition Improved Clinical Impression Clinical Impression Primary Impression: UTI (urinary tract infection) Disposition Decision Discharge )( Discharged to Home Yes )( Time 174 )( Date 06/20/19 Discharge/Care Plan Counseled Regarding [...] Physician Note Scribe Statement Heather Blank, 06/20/19 1542, scribing for and in the presence of Dr. Elder. Signed By: Heather Blank, 06/20/19 1544 Provider Scribed Statement I personally performed the services described in this documentation and reviewed the documentation that was dictated to the scribe(s) in my presence, and it accurately records my words and actions. Jose Elder, 06/20/19 Portions of this section were scribed by Heather Blank on 06/20/19 at 1742 at 2202 RPT #:[id number] END OF REPORT [facility] 2019-04-28 09:09:00 [facility] ([facility]) EMERGENCY PROVIDER REPORT REPORT#:[id number] REPORT STATUS: Signed DATE:04/28/19 TIME: 908 PATIENT: CHUNG SUE UNIT #: [id number] ROOM/BED: AGE: 23 SEX: F PCP PHYS: [...] abd pain w/ onset of 7.5 hours STUDENT UNION CONSULTANT. Pt states that her pain is intermittent. [...] 102/65 04/28 0830 B/P Mean 77 04/28 08 O2 Delivery Room air 04/28 830 Temp 36.6 04/28 08 Pulse 89 04/28 0830 Resp 18 04/28 [...] (Auto) (23.0 - 38.0 %) 17.8 L Crenshaw % (Auto) (1.0 - 10.0 %) 7.1 Eos % (Auto) (1.0 - 5.0 %) 0.6 L Baso % (Auto) (0.0 - 1.0 %) 0.4 Neut # (Auto) (2.4 - 6.3 K/mm3) 8.7 H Lymph # (Auto) (1.2 - 4.0 K/mm3) 2.1 Crenshaw # (Auto) (0.0 - 0.6 K/mm3) 0.8 [...] pH (5.0 - 9.0) 6.5 Ur Specific [place] (1.000 - 1.030) 1.015 Urine Protein (NEGATIVE [...] Carlee Gottlieb M.D. ULTRASOUND - US ABDOMEN [facility] 04/28 1048 Report Impression - Status: SIGNED Entered: 04/28/2019 1145 Impression: Normal gallbladder appearance. No gallstones evident. Iso echogenic, very subtle non mass-like area in the posterior left lobe of the liver, suggesting benign findings. Location: U 19 Impression By: [email or web address] - Get Gottlieb M.D. Lab Imaging Statement Laboratory radiographic studies reviewed and considered in the medical decision-making. Point of Care Testing Urinalysis Interpretation U/A reviewed Pulse Oximetry Pulse Ox % 96 On: Room air Interpretation Interpreted by me, Pulse oximetry normal Time 0830 Test Negative [...] Gris Godfrey on 04/28/19 at 1236 Re-Evaluation [facility] )( Re-Evaluation/Progress #1 Text/Dict Note Pt denies [...] Dr. Gonzalez. Signed By: Gris Godfrey, 04/28/19 0923 Provider Scribed Statement I personally performed the services described in this documentation and reviewed the documentation that was dictated to the scribe(s) in my presence, and it accurately records my words and actions. Taj Gonzalez, 04/30/19 Portions of this section were scribed by Gris Godfrey on 04/28/19 at [address] [facility] #:[id number] END OF REPORT [facility]
--- NOTE | 2025-06-21 18:37 | EDPHYS ---
Physician Documentation [facility] Name: Vielka Sue Age: 29 yrs Sex: Female : 1995 Arrival Date: 06/21/2025 Time: 17:32 Bed 15 Private MD: ED Physician Florentino Burden HPI: 06/21 18:32 This 29 yrs old Female presents to ER via Ambulatory with complaints of Vaginal Pain. kb 18:32 Pt is 29 year old female who presents for abscess to groin that started 2 days ago. kb States she has had these in the same place at least 4 times in the past. Denies fever. Called OB and was told to come have it evaluated just in case it was something that needed urgent attention. Has appt with OB tomorrow. 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 - Infectious Disease History:: Denies. - Social history:: Smoking status: unknown. ROS: 18:31 Constitutional: As per HPI kb Exam: 18:31 Constitutional: This is a well developed, well nourished patient who is awake, alert, kb and in no acute distress. Head/Face: Normocephalic, atraumatic. ENT: Moist Mucous membranes Respiratory: Respirations even and unlabored. No increased work of breathing. Talking in full sentences MS/ Extremity: Pulses equal, no cyanosis. Neurovascular intact. Full, normal range of motion. Neuro: Awake and alert, GCS 15, oriented to person, place, time, and situation. 18:31 Skin: abscess, that is small, of the groin, with fluctuance, upper inner left thigh where leg meets groin, Vital Signs: 17:41 BP 112 / 69; Pulse 94; Resp 18; Temp 98.4; Pulse Ox 96% ; Weight 74.84 kg; Height 4 ft. db 11 in. ; 18:51 BP 116 / 74; Pulse 87; Resp 16; Temp 98.2; Pulse Ox 98% on R/A; dd2 19:39 BP 162 / 91; Pulse 97; Resp 18; Pulse Ox 100% on R/A; af3 17:41 Body Mass Index 33.33 (74.84 kg, 149.86 cm) db MDM: 17:40 Medical Screening Exam initiated kb 18:35 Differential diagnosis: abscess, ingrown hair, cellulitis. Data reviewed: vital signs, kb nurses notes. Counseling: I had a detailed discussion with the patient and/or guardian regarding the historical points, exam findings, and any diagnostic results supporting the discharge/admit diagnosis, the need for outpatient follow up, an OB/Gyne specialist, to return to the emergency department if symptoms worsen or persist or if there are any questions or concerns that arise at home. ED course: I\T\D considered and recommended. Pt refuses I\T\D at this time. States she wants to try antibiotics first and will follow up with OB. . 06/21 17:45 Order name: [facility]. Order: place pt in gown please; Complete Time: 18:11 kb Administered Medications: No medications were administered Disposition Summary: 06/21/25 18:36 Discharge Ordered Notes: Location: Home kb Condition: Stable kb Diagnosis - Cutaneous abscess of groin kb Followup: kb - With: Emergency Department - When: As needed - Reason: Worsening of condition Followup: kb - With: Private Physician - When: 2 - 3 days - Reason: Recheck today's complaints, Continuance of care, Re-evaluation by your physician Discharge Instructions: - Discharge Summary Sheet kb - Skin Abscess, [id number] kb Forms: - Medication Reconciliation Form kb - Antibiotic Education kb - Prescription Opioid Use kb - Patient Portal Instructions kb - Leadership Thank You Letter kb Prescriptions: - Cephalexin 500 mg Oral Capsule - take 1 capsule ORAL route every 8 hours for 10 days; 30 capsule; Refills: 0, kb Product Selection Permitted Signatures: Molly Grijalva FNP-C FNP-Brittney Monaco, RN RN db Corrections: (The following items were deleted from the chart) 17:43 17:43 PMHx: None; db db
--- NOTE | 2025-06-21 18:37 | ER ---
Nurse's Notes [facility] Name: Vielka Sue Age: 29 yrs Sex: Female : 1995 Arrival Date: 06/21/2025 Time: 17:32 Bed 15 Private MD: Diagnosis: Cutaneous abscess of groin Presentation: 06/21 17:41 Chief complaint: Patient states: VAGINAL PAIN STATES FEELS LIKE A "BOIL" BUT PAIN IS db WORSE THAN NORMAL. ON LEFT GROIN AREA. STATES HAS HAD THEM BEFORE. STARTED 2 DAYS AGO DENIES FEVER. Coronavirus screen: Client denies travel out of the [place] in the last 14 days. At this time, the client does not indicate any symptoms associated with coronavirus-19. Ebola Screen: Patient negative for fever greater than or equal to 101.5 degrees Fahrenheit, and additional compatible Ebola Virus Disease symptoms Patient denies exposure to infectious person. Patient denies travel to an Ebola-affected area in the 21 days before illness onset. No symptoms or risks identified at this time. Initial Sepsis Screen: Does the patient meet any 2 criteria? No. Patient's initial sepsis screen is negative. Does the patient have a suspected source of infection? No. Patient's initial sepsis screen is negative. Risk Assessment: Do you want to hurt yourself or someone else? Patient reports no desire to harm self or others. Onset of symptoms was June 19, 2025. 17:41 Method Of Arrival: Ambulatory db 17:41 Acuity: ALONZO 3 db Triage Assessment: 17:43 General: Appears in no apparent distress. uncomfortable, Behavior is calm, cooperative. db Pain: Complains of pain in pelvis. 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 - Infectious Disease History:: Denies. - Social history:: Smoking status: unknown. Screenin:26 [facility] ED Fall Risk Assessment (Adult) History of falling in the last 3 months, dd2 including since admission No falls in past 3 months (0 pts) Confusion or Disorientation No (0 pts) Intoxicated or Sedated No (0 pts) Impaired Gait No (0 pts) Mobility Assist Device Used No (0 pt) Altered Elimination No (0 pt) Score/Fall Risk Level 0 - 2 = Low Risk Oriented to surroundings, Maintained a safe environment, Educated pt \\T\\ family on fall prevention, incl call for assistance when getting out of bed, Assessed \\T\\ reinforced patient's understanding of fall precautions, Hourly rounding (assess needs \\T\\ fall precautionary measures) done. Abuse screen: Denies threats or abuse. Denies injuries from another. Nutritional screening: No deficits noted. Tuberculosis screening: No symptoms or risk factors identified. Assessment: 18:26 General: Appears in no apparent distress. uncomfortable, Behavior is calm, cooperative, dd2 appropriate for age. Pain: Complains of pain in groin, inner lt thigh. Neuro: No deficits noted. Cardiovascular: No deficits noted. Respiratory: No deficits noted. GI: No deficits noted. No signs and/or symptoms were reported involving the gastrointestinal system. : No deficits noted. No signs and/or symptoms were reported regarding the genitourinary system. EENT: No deficits noted. No signs and/or symptoms were reported regarding the EENT system. Derm: Abscess located on lt inner thigh is quarter sized, has no drainage, is red, is raised. Musculoskeletal: No deficits noted. No signs and/or symptoms reported regarding the musculoskeletal system. Circulation, motion, and sensation intact. Range of motion: intact in all extremities. Vital Signs: 17:41 BP 112 / 69; Pulse 94; Resp 18; Temp 98.4; Pulse Ox 96% ; Weight 74.84 kg; Height 4 ft. db 11 in. ; 18:51 BP 116 / 74; Pulse 87; Resp 16; Temp 98.2; Pulse Ox 98% on R/A; dd2 19:39 BP 162 / 91; Pulse 97; Resp 18; Pulse Ox 100% on R/A; af3 17:41 Body Mass Index 33.33 (74.84 kg, 149.86 cm) db ED Course: 17:34 Patient arrived in ED. mr 17:40 Molly Grijalva FNP-C is [facility]. kb 17:40 Florentino Burden MD is Attending Physician. kb 17:43 Triage completed. db 17:43 Arm band placed on left wrist. db 18:26 Patient has correct armband on for positive identification. Bed in low position. Call dd2 light in reach. Placed in gown. Client placed on continuous cardiac and pulse oximetry monitoring. NIBP monitoring applied. Door closed. Noise minimized. Warm blanket given. Pillow given. Verbal reassurance given. 18:26 No provider procedures requiring assistance completed. Patient did not have IV access dd2 during this emergency room visit. Administered Medications: No medications were administered Medication: 18:26 VIS not applicable for this client. dd2 Outcome: 18:36 Discharge ordered by MD. kb 19:39 Discharged to home ambulatory, af3 19:39 Condition: stable 19:39 Discharge instructions given to patient, Instructed on discharge instructions, follow up and referral plans. medication usage, Demonstrated understanding of instructions, follow-up care, medications, Prescriptions given X 1, 19:40 Patient left the ED. af3 Signatures: Molyl Grijalva, MINESH-C SENSOR TECHNICIAN-Treva Bright, Reg Reg mr Brittney Hinojosa, RN RN db Silva Chilel RN RN af3 VICTOR M GARLAND RN RN dd2 Corrections: (The following items were deleted from the chart) 17:43 17:43 PMHx: None; db db
[2025-06-22 03:06] VITALS: TEMP 98.2
[2025-06-22 03:07] VITALS: BP 162/91; O2SAT 100
== END 2025-06-21 19:40 | disposition home or self-care (01) ==
LOC: ER 17:32
DX: O99.713 Diseases of the skin and subcutaneous tissue complicating pregnancy, third trimester (principal); L02.214 Cutaneous abscess of groin; Z3A.32 32 weeks gestation of pregnancy
CPT/HCPCS: 99283